=== PATIENT | female | born 1940 | race Caucasian/White ===

== ENCOUNTER 2018-01-09 17:10 | Inpatient (IN) | payer MEDICARE ==
[2018-01-09 17:40] LABS: #Basophils 0.1 thou/uL (0.0-0.2); #Eosinphils 0.2 thou/uL (0.0-0.7); #Lymphocytes 2.4 thou/uL (1.20-3.40); #Monocytes 1.4 thou/uL (0.11-0.59); #Neutrophils 7.7 thou/uL (1.40-6.50); %Basophils 0.6 % (0.0-1.0); %Eosinophils 1.5 % (0.0-10.0); %Lymphocytes 20.5 % (21.0-51.0); %Monocytes 11.6 % (0.0-10.0); %Neutrophils 65.7 % (42.0-75.0); Hemoglobin 12.6 g/dL (12.0-16.0); Mean Corpuscular HGB CONC 33.9 g/dL (32.0-36.0); Mean Corpuscular Hemoglobin 31.3 pg (27.0-31.0); Mean Corpuscular Volume 92.3 fL (78.0-98.0); Mean Platelet Volume 7.3 fL (7.4-10.4); Platelet Count 285 thou/uL (130-400); RBC Distribution Width 11.9 % (11.5-14.5); Red Blood Cell (RBC) Count 4.01 mill/uL (4.20-5.40); White Blood Cell (WBC) Count 11.7 thou/uL (4.8-10.8)
[2018-01-09 18:09] LABS: CKMB 0.7 ng/mL (0-6.6); Troponin I Less than 0.010 ng/mL (< 0.028)
--- NOTE | 2018-01-09 19:04 | RAD ---
CHEST ONE VIEW: History: Palpitations. Comparison: 06-16-17 FINDINGS: Cardiac silhouette is magnified by projection. Pulmonary vasculature unremarkable. Mediastinum is mid line. Lungs are hyperinflated. No lobar consolidation or evidence of pneumothorax. traffic monitor specialist le ads overlie the chest. IMPRESSION: COPD. POS: GABRIEL
[2018-01-09 20:27] VITALS: BMI 23.9
[2018-01-09] MEDS ORDERED: Ondansetron HCl/PF 4 MG/2 ML Vial IVP PRN (20:35)
[2018-01-09] MEDS ORDERED: Ondansetron ODT 4 MG TAB SL PRN (20:35)
[2018-01-09] MEDS ORDERED: Acetaminophen 325 MG TAB PO PRN (20:35)
[2018-01-09] MEDS ORDERED: Albuterol Sulfate 1.25 MG/3 ML NEB NEB PRN (20:42)
[2018-01-09 21:13] LABS: Troponin I Less than 0.010 ng/mL (< 0.028)
[2018-01-09] MEDS: Mag-Al 1200 mg/1200 mg/30 ML UDCUP PO PRN (23:43)
[2018-01-09 23:54] LABS: Troponin I Less than 0.010 ng/mL (< 0.028)
--- NOTE | 2018-01-10 05:40 | HP ---
PRIMARY CARE PHYSICIAN: Jane Bellamy M.D. CODE STATUS: FULL CODE. TIME OF EVALUATION: 7:50 p.m. CHIEF COMPLAINT: Syncope. HISTORY OF PRESENT ILLNESS: This is a 77-year-old female patient with past medical history of vanita bhagat, patient came to hospital after having an episode of syncope, she reported she was sitting at h ome, she was lightheaded and had an episode of syncope where she blacked out on the sofa, she did not fall on the floor, there were no clear triggers, no alleviating factors, the only event that the pat ient can recall this, but she has been having on and off chest pain for the past month. She reported that she was supposed to see a watch crystal molder in the next coming days. The symptoms were severe, sudd en onset, no clear triggers, no alleviating factors. REVIEW OF SYSTEMS: Constitutional: No fever, chills, or generalized weakness. Respiratory: No cou gh, sputum production or shortness of breath. Cardiovascular: Chest pain, palpitations, shortness o f breath. Gastrointestinal: No nausea, no vomiting, diarrhea or abdominal pain. AIRCRAFT ENGINE MECHANIC OVERHAUL: No dizziness , headache or feeling lightheaded. Genitourinary: No burning on urination. Extremities: No leg sw elling. All other systems were reviewed and negative except for the findings mentioned above. PAST MEDICAL HISTORY: The patient has a history of cardiac arrhythmias. PAST SURGICAL HISTORY: Knee surgery, cholecystectomy, hysterectomy. PSYCHIATRIC HISTORY: No previous psychiatric history. SOCIAL HISTORY: Former tobacco user, smokes cigarettes. The patient quit smoking less than 10 years ago. Lives at home alone. ALLERGIES: AZITHROMYCIN, . REPORTED MEDICATIONS: Triamterene/hydrochlorothiazide, losartan, Cardizem LA, pantoprazole, aspirin. PHYSICAL EXAMINATION: VITAL SIGNS: On presentation, blood pressure 102/66, with a heart rate of 106, respiratory rate was 14, temperature 98.6, oxygen saturation 100% on room air. GENERAL APPEARANCE: The patient is alert, oriented, not in any acute distress. HEENT: Eyes: Normal conjunctivae. Moist oral mucosa. Anicteric. NECK: No JVD. RESPIRATORY: Bilateral air entry. No rales, no wheezing. Symmetric expansion. CARDIOVASCULAR: Normal rate, regular rhythm. No murmurs, no gallop. No edema. ABDOMEN: Soft, normal bowel sounds. MUSCULOSKELETAL: Baseline range of motion and strength. No tenderness. SKIN: Warm and intact. No pallor, no rash, no redness. Peripheral pulses are present. Capillary r efill seems to be intact. NEUROLOGIC: Baseline sensory. No evidence of any new focal weakness. Baseline speech. Cranial ner ves seem to be intact. PSYCHIATRIC: The patient is in good mood. No anxiety, oriented, optimal judgment. IMAGING: EKG was reviewed. The patient has sinus tachycardia at the rate of 103 with left axis luther ation. AK 154, QRS 78, QT corrected 421. Chest x-ray was reviewed. The patient has COPD. LABORATORY DATA: Labs were reviewed. The patient has white count 11.7, hemoglobin 12.6, MCV 92, escobar telet count 285. Troponin was negative x2. Chemistry is pending. ASSESSMENT AND PLAN: The patient will be placed in the hospital with following medical problems. 1. Syncope, unclear etiology, the patient has a history of arrhythmia, we will do an echo, we will m onitor on tele, we will trend troponins. We will do carotid Doppler. 2. Deep venous thrombosis prophylaxis.
[2018-01-10 06:10] LABS: #Eosinphils 0.2 thou/uL (0.0-0.7); #Lymphocytes 1.9 thou/uL (1.20-3.40); #Monocytes 1.1 thou/uL (0.11-0.59); #Neutrophils 7.1 thou/uL (1.40-6.50); %Basophils 0.2 % (0.0-1.0); %Eosinophils 2.3 % (0.0-10.0); %Lymphocytes 17.9 % (21.0-51.0); %Monocytes 10.9 % (0.0-10.0); %Neutrophils 68.7 % (42.0-75.0); Hemoglobin 12.2 g/dL (12.0-16.0); Mean Corpuscular HGB CONC 33.3 g/dL (32.0-36.0); Mean Corpuscular Volume 93.1 fL (78.0-98.0); Mean Platelet Volume 7.6 fL (7.4-10.4); Platelet Count 272 thou/uL (130-400); Red Blood Cell (RBC) Count 3.94 mill/uL (4.20-5.40); White Blood Cell (WBC) Count 10.4 thou/uL (4.8-10.8)
[2018-01-10 07:11] LABS: Anion Gap 13 mmol/L (10-20); BUN (Urea Nitrogen) 19 mg/dL (9.8-20.1); Calc. Creatinine Clearance 46 mL/min (70-130); Calcium 9.6 mg/dL (7.8-10.44); Carbon Dioxide 28 mmol/L (23-31); Chloride 98 mmol/L (98-107); Estimated GFR-MDRD 58; Glucose 112 mg/dL (83-110); Potassium 4.1 mmol/L (3.5-5.1); Sodium 135 mmol/L (136-145)
--- NOTE | 2018-01-10 09:27 | ULT ---
BILATERAL CAROTID DUPLEX ULTRASOUND: HISTORY: Syncope. TECHNIQUE: Porter scale ultrasound with color flow and spectral Doppler imaging of the deep venous systems of the lower extremities performed bilaterally. FINDINGS: There is plaque formation on either side. The peak systolic velocity in the right ICA measures 71 cm/s with an end-diastolic velocity of 27 cm/ s and a systolic ratio of 0.77. The peak systolic velocity in the left ICA measures 82 cm/s with an end-diastolic velocity of 28 cm/s and a systolic ratio of 0.79. Flow in both vertebral arteries remains antegrade. IMPRESSION: No evidence of hemodynamically significant stenosis. POS: OFF
[2018-01-10] MEDS: Aspirin 81 mg Enteric Coated Tablet PO SCH (10:47)
[2018-01-10] MEDS: Enoxaparin Sodium 40 MG/0.4 ML SYRINGE SC SCH (10:49)
--- NOTE | 2018-01-10 11:07 | PDOC.PN ---
- Subjective Encounter Start Date: 01/10/18 Encounter Start Time: 11:05 Subjective: post syncope, feels ok today. Hx of SVT on cardizem, vague hx of weak spell - Objective Resuscitation Status: Resuscitation Status FULL:Full Resuscitation MAR Reviewed: Yes Vital Signs & Weight: Vital Signs (12 hours) Temp Pulse Resp BP BP Pulse Ox 01/10/18 08:49 99.4 F 90 17 135/67 94 L 01/10/18 05:08 98.6 F 76 16 95/55 L 93 L 01/09/18 23:43 71 18 125/68 94 L Weight Weight 131 lb I&O: 01/09/18 01/10/18 01/11/18 06:59 06:59 06:59 Intake Total 360 Output Total 300 Balance 60 Result Diagrams: 01/10/18 05:51 01/10/18 05:50 Phys Exam - Physical Examination Neck: no JVD Respiratory: clear to auscultation bilateral Cardiovascular: RRR, no significant murmur Gastrointestinal: soft, non-tender, positive bowel sounds Musculoskeletal: no edema Dx/Plan (1) Syncope and collapse Code(s): R55 - SYNCOPE AND COLLAPSE Status: Acute (2) SVT (supraventricular tachycardia) Code(s): I47.1 - SUPRAVENTRICULAR TACHYCARDIA Status: Resolved (3) CAD (coronary artery disease) Code(s): I25.10 - ATHSCL HEART DISEASE OF [place] CORONARY ARTERY W/O ANG PCTRS Status: Chronic Qualifiers: Coronary Disease-Associated Artery/Lesion type: [place] artery [place] vs. transplanted heart: [place] heart Associated angina: without angina Qualified Code(s): I25.10 - Atherosclerotic heart disease of [place] coronary artery without angina pectoris - Plan Hx suspicious for cardiac related syncope with rhythm disorder -: cont tele, cardiology consult, -: hold cardizem * .
[2018-01-10] MEDS: Mag-Al 1200 mg/1200 mg/30 ML UDCUP PO PRN (15:21)
--- NOTE | 2018-01-11 05:02 | CON ---
DATE OF CONSULTATION: 01/10/2018 HISTORY: Mary Ellen Maravilla is a 77-year-old white female who states in 1986, she began to have episodes of rapid heartbeat. She would have 3 to 4 episodes per week that would last 1-2 minutes. At that time, she would also have chest pressure and left jaw pain associated with this. She underwent cardiac catheterization approximately 2007 or 2008 in [place], [place] and was told that she had 15% to 20% narrowing in an artery. In the summer last year, she was having one of these episodes and her daughter took her quickly to the [facility] in [place]. She apparently had rapid heartbeat and it sounds as if she underwent electrical cardioversion for that. She was then placed on Cardizem 240 CD q.a.m. She states that since that time, she has not been having any problems whatsoever with the rhythm or other chest discomfort. Then, over the last month, she started to have episodes again of chest pressure, left jaw pain, and feeling of her heart beating very rapidly. She has an appointment for evaluation with Dr. Murray tomorrow. Yesterday, she was sitting on her couch and began to feel very lightheaded, everything went black and then she fell over and then found herself with her head on the arm of the couch. She thinks she may have been out for 5 or 6 seconds. This was unwitnessed. She then called paramedics. She was brought to the ER. Since being here, she has had documented episode of supraventricular tachycardia 150 per minute. Now with this, she did have some of the chest discomfort and the left jaw pain. PAST MEDICAL HISTORY: Cardiac arrhythmias, mild coronary artery disease according to the patient. OPERATIONS: Knee surgery, cholecystectomy, hysterectomy. MEDICATIONS: Albuterol nebs q.8 hours p.r.n., Ecotrin 1 daily, Cardizem LA 240 daily, losartan 50 daily, Protonix 40 daily, triamterene/hydrochlorothiazide 37.5/25 daily. ALLERGIES: PHENYLEPHRINE, AZITHROMYCIN, and LORATADINE. SOCIAL HISTORY: She continues to live alone. She smoked in the past, stopped about 10 years ago. She does not drink. PHYSICAL EXAMINATION: VITAL SIGNS: 139/74, pulse of 107. HEENT: PERRL. NECK: Supple. CHEST: Clear. CARDIAC: S1 and S2 are normal without any S3, S4, or murmurs. Carotid upstrokes normal without bruits. ABDOMEN: Normal bowel sounds without tenderness or organomegaly. EXTREMITIES: Revealed no clubbing, cyanosis, or edema. NEUROLOGIC: Grossly intact. SKIN: Warm and dry. LABORATORY DATA: EKG revealed sinus tachycardia with rate of 103 per minute, possible old anterior infarction. CBC is unremarkable. Sodium 135, potassium 4.1, chloride 98, carbon dioxide 28, BUN 19, creatinine 0.94. Troponin I is normal x3. TSH is normal in September. IMPRESSION: 1. Episode of syncope, which probably due to some type of lizbeth arrhythmia. 2. Supraventricular tachycardia and wide complex tachycardia seen on the monitor, which probably explains her tachycardia over the last 30 years. 3. Chest discomfort at times associated with her tachycardia. 4. Minimal coronary artery disease on catheterization 8-9 years ago in [place]. 5. Hypertension. PLAN: Fasting lipid profile will be obtained with patient having history of coronary artery disease and not being on a statin. She will undergo Lexiscan Cardiolite testing to further evaluate her chest pressure and left jaw pain. Also, Electrophysiology will be consulted for possible ablation of her SVT and electrophysiology study to measure sinus node recovery times, etc. JESSICA
[2018-01-11 05:57] LABS: Cardiac Risk 3.3 (Less than 4.5)
[2018-01-11] MEDS ORDERED: Regadenoson 0.4 MG/5 ML SYRINGE ONE (10:58)
[2018-01-11] MEDS: Enoxaparin Sodium 40 MG/0.4 ML SYRINGE SC SCH (11:05)
[2018-01-11] MEDS: Aspirin 81 mg Enteric Coated Tablet PO SCH (11:05)
[2018-01-11] MEDS: Losartan 25 MG TAB PO SCH (11:05)
[2018-01-11] MEDS: Triamterene/Hydrochlorothiazide 37.5 mg/25 mg Tablet PO SCH (11:05)
--- NOTE | 2018-01-11 13:17 | NM ---
CARDIAC SPECT: HISTORY: A 77-year-old female with chest pain, coronary artery disease, supraventricular tachycardia, hyperten golden. TECHNIQUE: A myocardial perfusion scan was performed using the single-isotope 1-day protocol with Technetium 99m sestamibi. Nine mCi were injected intravenously for the rest exam followed by 27 mCi for the stress study. Pharmacologic stress with LexiScan is monitored and interpreted by Clementine Fay. FINDINGS: Homogeneous tracer distribution is seen in the myocardial segments on stress and rest images without fixed or reversible defects. VISUAL ESTIMATION OF LVEF: About 60%. WALL MOTION EXAM: Normal. IMPRESSION: Normal myocardial perfusion scan. POS: GABRIEL
--- NOTE | 2018-01-11 15:31 | PDOC.PN ---
- Subjective Encounter Start Date: 01/11/18 Encounter Start Time: 15:29 Subjective: no problems - Objective Resuscitation Status: Resuscitation Status FULL:Full Resuscitation MAR Reviewed: Yes Vital Signs & Weight: Vital Signs (12 hours) Temp Pulse Resp BP Pulse Ox 01/11/18 11:48 97.5 F L 104 H 19 124/59 L 94 L 01/11/18 11:05 98.5 F 99 16 01/11/18 03:30 98.5 F 99 16 111/59 L 96 Weight Weight 127 lb 4.8 oz I&O: 01/10/18 01/11/18 01/12/18 06:59 06:59 06:59 Intake Total 360 780 Output Total 300 Balance 60 780 Result Diagrams: 01/10/18 05:51 01/10/18 05:50 Phys Exam - Physical Examination Neck: no JVD Respiratory: clear to auscultation bilateral Cardiovascular: RRR, no significant murmur Gastrointestinal: soft, positive bowel sounds Musculoskeletal: no edema Dx/Plan (1) Syncope and collapse Code(s): R55 - SYNCOPE AND COLLAPSE Status: Acute (2) SVT (supraventricular tachycardia) Code(s): I47.1 - SUPRAVENTRICULAR TACHYCARDIA Status: Resolved (3) CAD (coronary artery disease) Code(s): I25.10 - ATHSCL HEART DISEASE OF [place] CORONARY ARTERY W/O ANG PCTRS Status: Chronic Qualifiers: Coronary Disease-Associated Artery/Lesion type: [place] artery [place] vs. transplanted heart: [place] heart Associated angina: without angina Qualified Code(s): I25.10 - Atherosclerotic heart disease of [place] coronary artery without angina pectoris - Plan neg stress test , SVT ablation tomorrow * .
[2018-01-11] MEDS: Atorvastatin Calcium 40 MG TAB PO SCH (20:27)
--- NOTE | 2018-01-12 00:10 | CON ---
DATE OF CONSULTATION: 01/11/2018 ELECTROPHYSIOLOGY CONSULTATION REFERRING PHYSICIAN: Ivan Lomeli MD REASON FOR CONSULTATION: Syncope and collapse, SVT. HISTORY OF PRESENT ILLNESS: Ms. Maravilla is a pleasant 77-year-old woman with a history of palpitatio ns that initially began as far back as 1986. She began to have episodes 30 seconds to approximately 2 minutes in duration preceded by tooth and gum pain. She would have episodes of palpitations and di zziness that spontaneously ended. She has had a left heart catheterization in the past, which reveal ed minimal coronary artery disease 15%-20% and reports no further action has been taken about that. In 2017, she began to experience constant fatigue and increasing frequency of elevated heart rate epi sodes that were also becoming progressively longer. Approximately a year and a half ago, she was dri parag with her daughter, began to experience an episode, and went to the emergency room. She was foun d to be in a rapid rhythm and was given adenosine, which successfully chemically converted her back t o normal sinus rhythm. She was started on p.o. diltiazem, which has kept her largely asymptomatic si nce that time. Approximately 5 weeks ago, she began to experience recurrent episodes of heart racing , palpitations, and began to have associated symptoms of dizziness, lightheadedness, and eventually p assing out. She reports that prior to coming to the emergency room, she was on the sofa resting, whe n she felt weightless and that the room was closing in and around her and she passed out. She denies any heart racing or palpitations before this. There was no loss of bowel or bladder control afterwa rds. No confusion or disorientation afterwards. A family member who is an EMT came to evaluate her afterwards and reports a normal heart rate, but EMS was called and brought her in for further evaluat ion. She has undergone a cardiac stress test that was normal and her ejection fraction by echo this hospital stay is documented at 60%-65%. She has never had passing out episodes prior to this one, th ough has had many episodes where she felt close to passing out, most markedly in the past 5 weeks. S he has not noticed any provoking factors or relieving factors with her episodes. Currently, she denies any heart racing, palpitations, chest pain, pressure, syncope, near syncope, st roke, or stroke-like symptoms other than that mentioned already. She does report that she had some d izziness and lightheadedness yesterday and informed the nurse. Telemetry revealed a nine-second epis ode of wide-complex tachycardia with flipped access. REVIEW OF SYSTEMS: Twelve-point review of systems was conducted and is negative except that listed a lindsay in the HPI. PAST MEDICAL HISTORY: 1. Palpitations x30 years. 2. Mild coronary artery disease, nonobstructive by left heart catheterization in 2008. 3. Gallbladder removal. SOCIAL HISTORY: Former tobacco user. Smoked cigarettes, but quit approximately 10 years ago. Lives at home alone. Negative for illegal drug use or alcohol consumption. ALLERGIES: Include AZITHROMYCIN. HOME MEDICATIONS: Triamterene/hydrochlorothiazide 37.5/25 mg capsule daily, Protonix 40 mg daily, Co zaar 50 mg daily, Cardizem sustained release 240 mg daily, aspirin 81 mg daily, and albuterol 1.25 mg q.8. hours as needed. PHYSICAL EXAMINATION: VITAL SIGNS: Temperature 97.5 degrees Fahrenheit, pulse 105, respirations 19, oxygen is 94% on room air, blood pressure 124/59. GENERAL: This is a well-appearing, well-groomed female in no apparent distress. She is alert and or iented. Speech is clear. Affect is appropriate. HEENT: She is normocephalic, atraumatic. Her sclerae are anicteric. HEART: Heart rate is regularly regular with a crisp S1, S2. Her PMI is nondisplaced. LUNGS: Clear to auscultation bilaterally without wheezes, crackles, or rhonchi. Respirations are ev en and unlabored with good bilateral excursion heard. ABDOMEN: Benign, nontender with no palpable masses and there are positive bowel tones noted througho ut. NEUROLOGIC: Grossly intact and nonfocal, and her gait was not assessed. DATABASE: EKG and telemetry were all personally reviewed and showed largely sinus rhythm, other than occasional episodes of a slightly wide-complex tachycardia with axis deviation. Hematology unremarkable. Chemistry was reviewed and is unremarkable. Creatinine is 0.94, potassium 4.1. Nuclear stress test on 01/11/2018 was negative. Echocardiogram on 01/10/2018, ejection fraction 60%- 65%, mild mitral regurgitation, and [id number] tricuspid regurgitation. IMPRESSION: 1. Syncope and collapse. 2. Nonsustained wide-complex tachycardia, possibly ventricular tachycardia versus supraventricular t achycardia with aberrancy. 3. Preserved left ventricular systolic function 60%-65% by echo this hospitalization. PLAN: We will keep the patient n.p.o. after midnight tonight for EP study with possible ablation. D epending on the findings of the EP study, we also discussed potential need for a pacemaker versus ICD . Risks of EP study were disclosed including bleeding at the groin site, hematoma, cardiac arrhythmi as, or perforation of the heart. Risks associated with device implant include pain, swelling, bruisi ng, infection, pneumothorax, hemothorax. The patient voices understanding and is eager to move forwa rd with EP study and whatever is needed to be done. She agrees with all the risks. Family was at be dside also and voices understanding with plan of care. All questions have been answered. Thank you for allowing us to participate in the care of this patient.
--- NOTE | 2018-01-12 08:26 | PDOC.PN ---
- Subjective Encounter Start Date: 01/12/18 Encounter Start Time: 08:26 Subjective: some sob, responded to duoneb - Objective Resuscitation Status: Resuscitation Status FULL:Full Resuscitation MAR Reviewed: Yes Vital Signs & Weight: Vital Signs (12 hours) Temp Pulse Resp BP Pulse Ox 01/12/18 07:31 75 16 95 01/12/18 04:29 98.1 F 97 20 122/62 92 L 01/11/18 20:27 98.2 F 94 20 Weight Weight 132 lb 11.2 oz I&O: 01/11/18 01/12/18 01/13/18 06:59 06:59 06:59 Intake Total 780 500 Balance 780 500 Result Diagrams: 01/10/18 05:51 01/10/18 05:50 Phys Exam - Physical Examination Neck: no JVD Respiratory: clear to auscultation bilateral Cardiovascular: RRR, no significant murmur Gastrointestinal: soft, positive bowel sounds Musculoskeletal: no edema, pulses present Dx/Plan (1) Syncope and collapse Code(s): R55 - SYNCOPE AND COLLAPSE Status: Acute (2) SVT (supraventricular tachycardia) Code(s): I47.1 - SUPRAVENTRICULAR TACHYCARDIA Status: Resolved (3) CAD (coronary artery disease) Code(s): I25.10 - ATHSCL HEART DISEASE OF [place] CORONARY ARTERY W/O ANG PCTRS Status: Chronic Qualifiers: Coronary Disease-Associated Artery/Lesion type: [place] artery [place] vs. transplanted heart: [place] heart Associated angina: without angina Qualified Code(s): I25.10 - Atherosclerotic heart disease of [place] coronary artery without angina pectoris (4) COPD (chronic obstructive pulmonary disease) Status: Acute (5) Wide QRS ventricular tachycardia Code(s): I47.2 - VENTRICULAR TACHYCARDIA Status: Acute - Plan duoneb added -: EP studies today, FU * .
[2018-01-12] MEDS ORDERED: PROPOFOL 200 MG/20 ML VIAL ONE (10:29)
[2018-01-12] MEDS: Triamterene/Hydrochlorothiazide 37.5 mg/25 mg Tablet PO SCH (10:33)
[2018-01-12] MEDS: Losartan 25 MG TAB PO SCH (10:33)
[2018-01-12] MEDS: Aspirin 81 mg Enteric Coated Tablet PO SCH (10:34)
[2018-01-12] MEDS: Enoxaparin Sodium 40 MG/0.4 ML SYRINGE SC SCH (10:34)
--- NOTE | 2018-01-12 16:03 | EKG ---
Test Reason : Blood Pressure : / mmHG Vent. Rate : 103 BPM Atrial Rate : 103 BPM P-R Int : 154 ms QRS Dur : 078 ms QT Int : 322 ms P-R-T Axes : 071 -34 057 degrees QTc Int : 421 ms Sinus tachycardia Left axis deviation Anterior infarct , age undetermined Abnormal ECG Confirmed by FATEMEH HOYOS, SONYA ([id number]), publications editor HEIDI FRYE ([id number]) on 01/12/2018 4:02:45 PM Referred By: Confirmed By:SONYA WELDON MD
[2018-01-12] MEDS ORDERED: Midazolam HCl 2 mg/2 ml Vial ONE (16:58)
[2018-01-12] MEDS ORDERED: Fentanyl 100 MCG/2 ML VIAL ONE (16:59)
[2018-01-12] MEDS ORDERED: Propofol 500 MG/50 ML VIAL ONE (17:23)
[2018-01-12] MEDS ORDERED: PHENYLEPHRINE-NS 100 MCG/ML 10 ML SYRINGE ONE (17:43)
[2018-01-12] MEDS ORDERED: Isoproterenol 0.2 MG/1 ML AMP ONE (18:36)
[2018-01-12] MEDS ORDERED: PROPOFOL 20 ML ONE (18:47)
[2018-01-12] MEDS ORDERED: Ondansetron HCl/PF 4 MG/2 ML Vial IVP PRN (19:11)
[2018-01-12] MEDS ORDERED: Promethazine HCl 25 MG/ML VIAL SLOW IVP PRN (19:11)
[2018-01-12] MEDS ORDERED: Promethazine HCl 25 MG/ML VIAL IM PRN (19:11)
[2018-01-12] MEDS: Atorvastatin Calcium 40 MG TAB PO SCH (21:21)
--- NOTE | 2018-01-13 09:21 | OP ---
DATE OF SERVICE: 01/12/2018 ELECTROPHYSIOLOGY STUDY AND RADIOFREQUENCY ABLATION REPORT REFERRING PHYSICIAN: Jimy Villalpando M.D. and Ivan Lomeli M.D. Reason for procedure: Ms. Maravilla is a 77-year-old female with history of syncopal spell and on telemetry, she has episodes of tachyarrhythmias, possible SVTs documented, here for EP study and ablation procedure. PROCEDURE: The patient received propofol Anesthesia specialist. After adequate level of sedation achieved, the left and right femoral vein was accessed with a multipurpose needle under ultrasound guidance. The guidewire though did not advance into the IVC. 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 Collaterals were seen carrying the blood centrally. Access from this approach was abandoned. Under ultrasound guidance and after prep and drape of the right IJ area, the right IVC was accessed with a multipurpose needle under fluoroscopic guidance, the right internal jugular veins were cannulated x2. Two 8-[place] short sheaths were introduced. Through this, a decapolar catheter was advanced to the right ventricular His bundle, right atrium and CS position. Pacing/mapping and recording was performed in each location. The following findings were noted, baseline cycle length sinus rhythm 637 milliseconds, WA 163, QRS 73, QT of 335 wide complex tachycardia. The AH was 100 milliseconds, HV 50 milliseconds. The sinus node recovery time is 776 milliseconds. Corrected sinus node recovery time was 150 milliseconds. AV Wenckebach cycle length was 360 milliseconds, retrograde Wenckebach cycle length 320 milliseconds. AV whitney ERP of 600/260 milliseconds with dual AV whitney physiology was demonstrated. Retrograde VA conduction was concentric. With burst atrial pacing, AV whitney reentry tachycardia was induced, which was pace terminated with overdrive ventricular pacing. The short<80ms VA timing and the initiation by WA prolongation during atrial pacing. This suggestive of AV node reentry tachycardia and at this point, we advanced a 4 mm ablation catheter to the right atrium, right ventricle, His bundle, and CS area. Pacing mapping and recording was performed in each location. With 40 baker 50 second- degree burn, we were delivered total of 7 ablation spots in the slow pathway with total duration of 4 minutes and 30 seconds. Junctional beats were observed during the ablation suggestive of successful slow pathway modification. No AV block was seen post-ablation, the AV Wenckebach cycle length was 360 milliseconds. With burst atrial pacing and atrial extrastimuli testing, no further slow pathway was evident. Isuprel was administered at this point and we were not able to re-induce the atrial tachycardia, either. BB Aberration noted with burst atrial pacing on Isuprel which could explain the wider complexes noted during the SVT on her monitor. CONCLUSION: 1. Typical AV whitney reentry tachycardia inducible. 2. Successful slow pathway modification. 3. 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 PLAN: Routine postoperative care. Evaluate abnormal structures due to IVC occlusion with a CT scan. MTDD
[2018-01-13] MEDS: Aspirin 81 mg Enteric Coated Tablet PO SCH (11:49)
[2018-01-13] MEDS: Losartan 25 MG TAB PO SCH (11:49)
[2018-01-13] MEDS: Triamterene/Hydrochlorothiazide 37.5 mg/25 mg Tablet PO SCH (11:49)
[2018-01-13] MEDS: Enoxaparin Sodium 40 MG/0.4 ML SYRINGE SC SCH (11:50)
--- NOTE | 2018-01-13 12:28 | CT ---
CT ABDOMEN AND PELVIS WITH IV CONTRAST: Date: 01-13-18 History: Unable to gain access through either common femoral vein for a heart ablation. 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 FINDINGS: Contrast injection was performed through a peripheral intravenous catheter within the right ankle. Th ere is dense contrast seen within the visualized right femoral veins with what is thought to be varyi ng anatomy with duplicated IVC. However, the right sided IVC is very small in caliber although there is a small amount of contrast within the right sided IVC. However, there are multiple cross pelvic co llateral vessels which extend to the left sided IVC. However, there is prominent tortuosity of the le ft iliac veins. The left common femoral vein was not opacified on this exam as the injection was perf ormed on the right. The IVC at the level of the renal veins as well as the hepatic IVC are normal and patent. Given the multiple cross pelvic collaterals and very small size of the right sided IVC may a ttribute to patient's right lower extremity swelling. 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 There is minimal linear density seen at each lung base which may be related to mild scarring. There are calcified granulomata seen within the spleen. Small subcentimeter low density foci are also seen within the spleen. These low density areas could potentially be related to phase of contrast en hancement. The liver, pancreas, bilateral adrenal glands, kidneys, and urinary bladder demonstrate a normal CT a ppearance. There is evidence of hysterectomy as well as what appears to be evidence of prior cholecystectomy. Sm all hiatal hernia is present. Vascular calcifications are seen in the abdominal aorta and involving the iliac arteries. A few scattered colonic diverticula are noted. IMPRESSION: 1. 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 There are multiple cross pelvic collateral veins with dil ated tortuous vessels involving the left iliac veins. There is question of filling defect within the right common iliac vein, but this may be related to mixing artifact with preferential flow via the co llateral veins in the pelvis to the draining veins on the left. The suprahepatic, hepatic and suprare nal IVC are patent. 2. Subcentimeter low density foci within the spleen; this may be related to phase of enhancement as o pposed to actual small hypodense splenic lesions. 3. Small hiatal hernia. 4. Hysterectomy and probable cholecystectomy. 5. Atherosclerotic calcifications. POS: GABRIEL
[2018-01-13] MEDS: Mag-Al 1200 mg/1200 mg/30 ML UDCUP PO PRN (15:41)
[2018-01-13 15:53] VITALS: BP 115/97; TEMP 98
--- NOTE | 2018-01-13 17:19 | PDOC.CTH ---
<Marlin Ramseyna - Last Filed: 01/13/18 17:15> Cardiology Progress Note - Subjective EP progress note: Patient seen and evaluated. No new cardiac concerns or complaints today. Denies heart racing, palpitations, chest pain/pressure, dizziness, or passing out. No stroke like symptoms. - Objective Vital Signs Temp Pulse Resp BP Pulse Ox 01/13/18 15:52 98.0 F 97 18 115/97 H 90 L 01/13/18 11:35 98.3 F 90 20 116/65 92 L 01/13/18 08:00 97.7 F 89 12 128/56 L 89 L Weight 132 lb 11.2 oz 01/12/18 01/13/18 01/14/18 06:59 06:59 06:59 Intake Total 500 Balance 500 - Physical Examination General/Neuro: alert & oriented x3, NAD Neck: carotid US brisk, no JVD present Lungs: CTA, unlabored respirations Heart: PMI normal, RRR Abdomen: no HSM, NT/ND, soft - Telemetry Telemetry Rhythm: NSR - Labs Result Diagrams: 01/10/18 05:51 01/10/18 05:50 Troponin/CKMB CK-MB (CK-2) 0.7 ng/mL (0-6.6) 01/09/18 17:32 Troponin I Less than 0.010 ng/mL (< 0.028) 01/09/18 23:23 - Assessment/Plan 1. Syncope and collapse: 2. 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 Successful slow pathway modification. No additional tachy arrhythmias inducible. Groin site stable without hematoma. OK to DC by EP. 6 week follow up will be arranged through [facility] <Benjamin Matos - Last Filed: 01/13/18 18:15> Cardiology Progress Note - Objective Vital Signs Temp Pulse Resp BP Pulse Ox 01/13/18 15:52 98.0 F 97 18 115/97 H 90 L 01/13/18 11:35 98.3 F 90 20 116/65 92 L 01/13/18 08:00 97.7 F 89 12 128/56 L 89 L Weight 132 lb 11.2 oz 01/12/18 01/13/18 01/14/18 06:59 06:59 06:59 Intake Total 500 Balance 500 - Labs Result Diagrams: 01/10/18 05:51 01/10/18 05:50 Troponin/CKMB CK-MB (CK-2) 0.7 ng/mL (0-6.6) 01/09/18 17:32 Troponin I Less than 0.010 ng/mL (< 0.028) 01/09/18 23:23 Attending Addendum - Attending Addendum Date/Time: 01/13/181813 I personally evaluated the patient and discussed the management with MS Ramsey I agree with the History, Examination, Assessment and Plan documented above with any addition or exceptions noted below. Please see dictated report.
--- NOTE | 2018-01-13 22:16 | DIS ---
DATE OF ADMISSION: 01/09/2018 DATE OF DISCHARGE: 01/13/2018 PRIMARY CARE PROVIDER: Jane Bellamy. DISCHARGE DISPOSITION: Discharged home. FINAL DIAGNOSES: Syncope and collapse, supraventricular tachycardia, wide QRS ventricular tachycardi a, chronic obstructive pulmonary disease, hypertension, coronary artery disease. DISCHARGE MEDICATIONS: Aspirin 81 mg a day, triamterene/HCTZ 37.5/25 one a day, losartan 50 mg a day , albuterol 1.25 mg nebs q.8 hours p.r.n., Protonix 40 mg a day. ALLERGIES: AZITHROMYCIN, LORATADINE, PHENYLEPHRINE from medicines. CODE STATUS: FULL. PENDING AT THE TIME OF DISCHARGE: Nothing. DIET: Heart healthy. HOSPITAL COURSE: The patient admitted to [facility] to [facility] elizabeth with syncope. Initial evaluation with carotid Doppler and CT of the head was unrevealing. Echocar diogram was done which showed an EF of 60% -65% with suggestion of diastolic dysfunction. Because [facility] patient had a history of SVT, she subsequently had a wide QRS tachycardia. Nuclear medicine stress test was done which revealed no evidence of ischemia. She was taken to the director of cardiac cath lab. Dr. Alexander To did an ablation. While doing the procedure, it was noted that it was difficult to advance an infe rior vena cava. 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 This has been discussed with the patient . CONSULTATIONS: Benjaimn Matos, Electrophysiology and Ivan Lomeli, Cardiology. The patient is being discharged on her usual medicines except for the Cardizem which has been used fo r years to prevent rapid rhythms with the SVT. This has been discontinued. She will see her PCP in follow up in 1 week. She will see Dr. Matos in follow up in 6 weeks.
--- NOTE | 2018-01-13 22:28 | PRG ---
DATE OF SERVICE: 01/13/2018 SUBJECTIVE: Ms. Maravilla seems to be doing well one day after her EP study and ablation procedure. OBJECTIVE DATA: VITAL SIGNS: Blood pressure is 128/56, heart rate 89, respiratory rate 12, temperature 97.7 degrees Fahrenheit. GENERAL: This is a 77-year-old woman in no apparent distress. NECK: Supple. Jugular veins are distended. Right IJ catheter access site is without hematoma. ABDOMEN: Benign. Bowel sounds positive. CARDIOVASCULAR: Heart sounds are regular to rate and rhythm. CHEST: Clear without crackles. DATABASE: Telemetry strips reveal sinus rhythm, no tachyarrhythmias. 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 Multiple close and tortuous venous vessels in the left iliac veins are seen. S uprahepatic and suprarenal IVCs patent. ASSESSMENT AND PLAN: 1. Ms. 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 She seems to be recovered well from that, no recurrence of arrh ythmia seen. 2. 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 There seem s to be reconstitution of the right IVC via collaterals at the renal vein level. 3. Plan: Routine followup in the office.
--- NOTE | 2018-01-14 15:12 | EKG ---
Test Reason : Blood Pressure : / mmHG Vent. Rate : 086 BPM Atrial Rate : 086 BPM P-R Int : 150 ms QRS Dur : 072 ms QT Int : 356 ms P-R-T Axes : 076 -14 040 degrees QTc Int : 426 ms Sinus rhythm with frequent Premature ventricular complexes Otherwise normal ECG When compared with ECG of 12-JAN-2018 19:22, (Unconfirmed) Premature ventricular complexes are now Present Abberant conduction is no longer Present Minimal criteria for Anterior infarct are no longer Present Nonspecific T wave abnormality no longer evident in Inferior leads Confirmed by JOE ISAAC MD ([id number]) on 01/14/2018 3:12:43 PM Referred By: [facility] Confirmed By:JOE ISAAC MD
--- NOTE | 2018-01-14 15:12 | EKG ---
Test Reason : STAT Blood Pressure : / mmHG Vent. Rate : 097 BPM Atrial Rate : 097 BPM P-R Int : 146 ms QRS Dur : 068 ms QT Int : 352 ms P-R-T Axes : 066 -19 031 degrees QTc Int : 447 ms Sinus rhythm with Premature atrial complexes with Abberant conduction Low voltage QRS Cannot rule out Anterior infarct (cited on or before 09-JAN-2018) Abnormal ECG When compared with ECG of 09-JAN-2018 17:21, Abberant conduction is now Present Nonspecific T wave abnormality, worse in Inferior leads Confirmed by JOE ISAAC MD ([id number]) on 01/14/2018 3:12:10 PM Referred By: ANILA Confirmed By:JOE ISAAC MD
== END 2018-01-13 17:24 | disposition home or self-care (01) | DRG 274 ==
LOC: ERS 17:10 → 2SW 20:23 → OBSVTOIN 01-11 15:01
PROVIDERS: ADMIT Hospitalist; ATTEND Hospitalist
PROC: 02583ZZ Destruction of Conduction Mechanism, Percutaneous Approach (ICD-10-PCS; principal; 2018-01-12)
PROC: 02K83ZZ Map Conduction Mechanism, Percutaneous Approach (ICD-10-PCS; 2018-01-12)
PROC: 4A0234Z Measurement of Cardiac Electrical Activity, Percutaneous Approach (ICD-10-PCS; 2018-01-12)
PROC: 4A023FZ Measurement of Cardiac Rhythm, Percutaneous Approach (ICD-10-PCS; 2018-01-12)
DX: I47.1 Supraventricular tachycardia (principal); Q26.8 Other congenital malformations of great veins; I47.2 Ventricular tachycardia; R55 Syncope and collapse; I25.10 Atherosclerotic heart disease of native coronary artery without angina pectoris; I10 Essential (primary) hypertension; J44.9 Chronic obstructive pulmonary disease, unspecified; Z87.891 Personal history of nicotine dependence; Z88.1 Allergy status to other antibiotic agents; Z88.8 Allergy status to other drugs, medicaments and biological substances; Z79.82 Long term (current) use of aspirin; Z79.899 Other long term (current) drug therapy
CPT/HCPCS: 36005; 36415; 71045; 74177; 75820; 76942; 78452; 80048; 80061; 82550; 82553; 84484; 85025; 93005; 93010; 93017; 93306; 93613; 93623; 93653; 93880; 94640; 94760; A9500; C1730; C1769; J1644; J1650; J2250; J2704; J2785; J3010; J7620

== ENCOUNTER 2019-08-25 14:41 | Inpatient (IN) | payer MEDICARE, OTHER ==
[2019-08-25 15:29] LABS: Hemoglobin 11.2 g/dL (12.0-16.0); Mean Corpuscular HGB CONC 32.4 g/dL (32.0-36.0); Mean Corpuscular Hemoglobin 31.5 pg (27.0-31.0); Mean Corpuscular Volume 97.4 fL (78.0-98.0); Mean Platelet Volume 9.8 fL (7.4-10.4); Platelet Count 202 thou/uL (130-400); RBC Distribution Width 11.6 % (11.5-14.5); Red Blood Cell (RBC) Count 3.55 mill/uL (4.20-5.40); White Blood Cell (WBC) Count 25.6 thou/uL (4.8-10.8)
--- NOTE | 2019-08-25 15:32 | RAD ---
Chest one view HISTORY: Chest pain. Dyspnea. COMPARISON: 01/09/2018. FINDINGS: Cardiac silhouette and pulmonary vasculature are unremarkable. Ill-defined parenchymal opac ities project over the left lower lobe. Somewhat masslike appearance. No lobar consolidation on the right. Mediastinum is midline with aortic calcification. No evidence of pneumothorax. Dystrophic calcificati on projecting over the left scapula is stable. surveillance system monitor leads overlie the chest. IMPRESSION : Masslike infiltrate left lower lobe. Clinical correlation regarding other signs and symptoms of left lower lobe pneumonitis is required. Please consider follow-up with PA and lateral views of the chest for evaluation/resolution. Atherosclerosis.
[2019-08-25 15:44] LABS: Band 30 % (5-11); Lymphocytes 3 % (21-51); MDiff Complete? YES; Metamyelocyte 2 % (0-0); Monocytes 7 % (0-10); Neutrophil 57 % (42-75); Platelet Morphology Comment Appears Adequate; RBC Morphology Normal; Reactive Lymphocytes 1 % (0-10)
[2019-08-25 15:49] LABS: ALT (SGPT) 9 U/L (8-55); AST (SGOT) 14 U/L (5-34); Albumin 3.9 g/dL (3.4-4.8); Alkaline Phosphatase 88 U/L (40-110); Anion Gap 13 mmol/L (10-20); BUN (Urea Nitrogen) 12 mg/dL (9.8-20.1); Bilirubin, Total 0.7 mg/dL (0.2-1.2); CK (CPK) 22 U/L (29-168); Calc. Creatinine Clearance 0 mL/min (70-130); Calcium 8.8 mg/dL (7.8-10.44); Carbon Dioxide 35 mmol/L (23-31); Chloride 95 mmol/L (98-107); Estimated GFR-MDRD 71; Globulin 2.7 g/dL (2.4-3.5); Glucose 122 mg/dL (83-110); Lipase 16 U/L (8-78); Potassium 3.6 mmol/L (3.5-5.1); Protein, Total 6.6 g/dL (6.0-8.3); Sodium 139 mmol/L (136-145)
[2019-08-25] MEDS ORDERED: Cefepime 2 GM VIAL ONE (16:31)
[2019-08-25] MEDS ORDERED: Zolpidem Tartrate 5 MG TAB PO PRN (18:27)
[2019-08-25] MEDS ORDERED: Ondansetron PF 4 MG/2 ML Vial IVP PRN (18:27)
[2019-08-25] MEDS ORDERED: Ondansetron ODT 4 MG TAB PO PRN (18:27)
[2019-08-25 19:13] LABS: Lactic Acid 1.9 mmol/L (0.5-2.2)
--- NOTE | 2019-08-25 19:23 | HP ---
PRIMARY CARE PROVIDER: Jane Bellamy MD HISTORY OF PRESENT ILLNESS: Referred to the Hospitalist Service by [facility]. Opening statement, the patient is a difficult historian. The patient states she had seizure-like activity that came back yesterday. She dates these seizure-like activities to receiving stents. They are basically a spontaneous motion of her arm or her shoulder. No loss of consciousness. No tonic-clonic activity. She has been put on Keppra for same. Her medical care has been obtained in [facility] and in [place]. The patient describes absolutely no fever, chills, cough, shortness of breath, etc. She was found to have a left lower lobe pneumonia. She is considered a COVID rule out. PAST MEDICAL HISTORY: Coronary artery disease, stents 18 months ago and again 2 months ago, chronic obstructive pulmonary disease, hypertension, seizure disorder per her description. CURRENT MEDICATIONS: 1. Aspirin 81 mg a day. 2. Plavix 75 mg a day. 3. Diltiazem 60 mg twice a day. 4. Ferrous sulfate 28 mg a day. 5. Lasix 20 mg a day. 6. Albuterol 90 mcg inhaled q.4 hours p.r.n. 7. Imdur 30 mg once a day. 8. Keppra 250 mg two times a day. 9. Protonix 20 mg a day. 10. Losartan 25 mg a day. ALLERGIES: TO LEVAQUIN, LORATADINE, MORPHINE, PHENYLEPHRINE, SUDAFED, CLARITIN, AZITHROMYCIN, CONTACT D. PAST SURGICAL HISTORY: Ablation for supraventricular tach at this hospital in 2018, cholecystectomy, arthroscopic knee surgery on the right, hysterectomy. FAMILY HISTORY: Mother of heart problems, had rheumatic fever as a child. Father in an accident. SOCIAL HISTORY: Single, daughter Malena Watt is surrogate decision maker. Full code status. She smoked 1 pack a day for decades, quit in 2009. Drinks no alcohol at the current time. REVIEW OF SYSTEMS: GENERAL: She states she has had hallucinations, which she knew they were hallucinations with her seizures. She has had no headaches, dizziness, fainting spells, or loss of consciousness. EYES: No double vision, blurred vision, or flashing lights. EAR, NOSE, AND THROAT: No ear pain or drainage. No nasal bleeding. No loss of smell sensation. No oral pain. No loss of taste sensation. CARDIAC: No chest pain, orthopnea, or paroxysmal nocturnal dyspnea. RESPIRATIONS: See present illness. GASTROINTESTINAL: She said she had possible food poisoning yesterday because she just felt sick this morning, had some nausea and vomiting. Still has some nausea. No vomiting of blood. No diarrhea, constipation, or melena. No abdominal pain. GENITOURINARY: No hematuria or dysuria. MUSCULOSKELETAL: No pain or swelling in her arms or legs. NEUROLOGICAL: The aforementioned jerking/seizure activity, which she described to me as a simple jerk of the arm. PSYCHIATRIC: No anxiety, depression, or psychiatric issues documented. SKIN: No bruising, bleeding, or rash. HEME/LYMPH: No tender or swollen lymph nodes in the axilla, inguinal, or cervical area. PHYSICAL EXAMINATION: GENERAL: As mentioned before, the patient is a poor historian; however, she is alert, oriented x3 and cooperative. VITAL SIGNS: Blood pressure 104/43, pulse 80, respirations 22, O2 saturation 92% on 1 L, it was initially 88% on room air. HEAD, EYES, EARS, NOSE, AND THROAT: Revealed pupils are equal, round, and reactive to light. Extraocular movements are intact. Sclerae are white. Tympanic membranes clear. Nose clear. Mouth sweat. NECK: No jugular venous distention, adenopathy or thyromegaly. CHEST: Some decreased breath sounds. Rales over the increased entire left posterior chest and to some extent the left anterior chest. Breath sounds good on the right. HEART: Regular rate and rhythm. First and second heart sounds are clear. There are no appreciated murmurs or gallops. ABDOMEN: Soft. Bowel sounds are normal. No hepatosplenomegaly. No mass. No rebound. No bruits. EXTREMITIES: Revealed no cyanosis, clubbing, or edema. PULSES: Carotid, radial, femoral, and dorsalis pedis pulses intact. SKIN: Warm and dry without bruises or rash. HEME/LYMPH: No tender or swollen lymph nodes in axilla, inguinal, or cervical area. NEUROLOGIC: Cranial nerves 2 through 12 are intact. Deep tendon reflexes symmetric. Moves all extremities. LABORATORY DATA: Chest x-ray, some hyperinflation, some flattening of the diaphragms, left lower lobe patchy infiltrate reviewed by me. EKG, regular sinus rhythm. Diffuse T-wave flattening reviewed by me. Comprehensive metabolic profile; sodium 139, potassium 3.6, chloride 95, CO2 of 35, creatinine 0.78, BUN 12, glucose 122. Lactic acid 2.5. CRP 3.97. White count 25.6 with bandemia, hemoglobin 11.2, platelet count 202,000. ADMITTING DIAGNOSES: 1. Acute respiratory failure with hypoxemia. 2. Left lower lobe pneumonia. 3. Coronavirus rule out. 4. Coronary artery disease, post percutaneous coronary intervention. 5. Lactic acidosis. 6. Hypertension. 7. Spontaneous jerking motions referred to by the patient as seizures. PLAN: Blood cultures have been obtained. Because of allergy, she will be given doxycycline 100 mg twice a day IV, Rocephin 1 g IV daily, O2 to keep sat 90% or better. Home medicines except Lasix will be given. IV fluids, normal saline at 125 mg/mL an hour will be given. Basic metabolic profile, CBC and lactic acid will be repeated in the morning. As mentioned before, DIEGO is pending. Job ID: [id number]
[2019-08-25] MEDS: Sodium Chloride 0.9% 1,000 ML IV SCH (20:42)
[2019-08-25] MEDS: cefTRIAXone\\ROCEPHIN 1 GM in Sodium Chloride 0.9% 100 ML IVPB SCH (20:42)
[2019-08-25] MEDS: levETIRAcetam 500 MG TAB PO SCH (20:44)
[2019-08-25] MEDS: Diltiazem HCl SR 60 mg Capsule PO SCH (20:46)
[2019-08-25] MEDS: Acetaminophen 325 MG TAB PO PRN (20:49)
[2019-08-25 22:19] VITALS: BMI 25.4
[2019-08-26] MEDS: Sodium Chloride 0.9% 1,000 ML IV SCH ×3 (05:12→19:28)
[2019-08-26 05:57] LABS: #Lymphocytes 1.7 thou/uL (1.20-3.40); #Monocytes 1.6 thou/uL (0.11-0.59); #Neutrophils 19.1 thou/uL (1.40-6.50); %Basophils 0.1 % (0.0-1.0); %Eosinophils 0.1 % (0.0-10.0); %Lymphocytes 7.5 % (21.0-51.0); %Monocytes 7.2 % (0.0-10.0); %Neutrophils 85.1 % (42.0-75.0); Mean Corpuscular HGB CONC 31.2 g/dL (32.0-36.0); Mean Corpuscular Hemoglobin 31.4 pg (27.0-31.0); Platelet Count 181 thou/uL (130-400); RBC Distribution Width 11.6 % (11.5-14.5); Red Blood Cell (RBC) Count 3.18 mill/uL (4.20-5.40); White Blood Cell (WBC) Count 22.5 thou/uL (4.8-10.8)
[2019-08-26 06:13] LABS: Anion Gap 12 mmol/L (10-20); BUN (Urea Nitrogen) 15 mg/dL (9.8-20.1); Calc. Creatinine Clearance 56 mL/min (70-130); Calcium 8.2 mg/dL (7.8-10.44); Carbon Dioxide 28 mmol/L (23-31); Chloride 101 mmol/L (98-107); Estimated GFR-MDRD 70; Glucose 104 mg/dL (83-110); Potassium 4.1 mmol/L (3.5-5.1); Sodium 137 mmol/L (136-145)
[2019-08-26] MEDS: levETIRAcetam 500 MG TAB PO SCH ×2 (08:37→20:57)
[2019-08-26] MEDS: Clopidogrel Bisulfate 75 MG TAB PO SCH (08:37)
[2019-08-26] MEDS: Aspirin 81 mg Enteric Coated Tablet PO SCH (08:37)
[2019-08-26] MEDS: Isosorbide Mononitrate (ER) 30 MG TAB PO SCH (08:38)
[2019-08-26] MEDS ORDERED: Enoxaparin Sodium 40 MG/0.4 ML SYRINGE SC SCH (09:00)
[2019-08-26] MEDS ORDERED: Lorazepam 2 MG/ML VIAL SLOW IVP PRN (13:05)
[2019-08-26] MEDS: Losartan 25 MG TAB PO SCH (13:09)
[2019-08-26] MEDS: Diltiazem HCl SR 60 mg Capsule PO SCH ×2 (13:38→21:41)
[2019-08-26] MEDS ORDERED: Sodium Chloride 0.9% 250 ML 250 ML IVPB PRN (14:06)
[2019-08-26] MEDS ORDERED: Sodium Chloride 0.9% 250 ML 250 ML IV SCH (14:15)
--- NOTE | 2019-08-26 14:48 | PDOC.HOSPP ---
- Subjective Encounter Date: 08/26/19 Encounter Time: 10:50 Subjective: more myoclonic jerks noted by RN, wbcs high, covid pending. - Objective Vital Signs & Weight: Vital Signs (12 hours) Temp Pulse Resp BP Pulse Ox 08/26/19 12:45 97.6 F 85 18 111/57 L 94 L 08/26/19 08:37 97.6 F 87 18 100/60 90 L 08/26/19 08:00 98 08/26/19 04:00 97.8 F 84 18 98/58 L 94 L Weight Admit Weight 138 lb 14.24 oz Weight 138 lb 14.24 oz I&O: 08/25/19 08/26/19 08/27/19 06:59 06:59 06:59 Intake Total 1375 Balance 1375 Result Diagrams: 08/26/19 05:29 08/26/19 05:29 Hospitalist ROS - Medication Medications: Active Medications Generic Name Dose Route Start Last Admin Trade Name Freq PRN Reason Stop Dose Admin Acetaminophen 650 mg 08/25/19 18:27 08/25/19 20:49 Tylenol PO 650 mg Q4H PRN Administration Headache/Fever/Mild Pain (1-3) Aspirin 81 mg 08/26/19 09:00 08/26/19 08:37 Ecotrin PO 81 mg DAILY DARWIN Administration Clopidogrel Bisulfate 75 mg 08/26/19 09:00 08/26/19 08:37 Plavix PO 75 mg DAILY DARWIN Administration Diltiazem HCl 60 mg 08/25/19 21:00 08/26/19 13:38 Cardizem Sr PO Not Given BID DARWIN Ceftriaxone Sodium 1 gm/ 100 mls @ 200 mls/hr 08/25/19 20:00 08/25/19 20:42 Sodium Chloride IVPB 100 mls Q24HR DARWIN Administration Doxycycline Hyclate 100 mg/ 100 mls @ 100 mls/hr 08/25/19 21:00 08/26/19 09: 12 Sodium Chloride IVPB 100 mls Q12HR DARWIN Administration Sodium Chloride 1,000 mls @ 125 mls/hr 08/25/19 18:27 08/26/19 05:12 Normal Saline 0.9% IV 1,000 mls .Q8H DARWIN Administration Isosorbide Mononitrate 30 mg 08/26/19 09:00 08/26/19 08:38 Imdur Er PO 30 mg DAILY DARWIN Administration Losartan Potassium 25 mg 08/26/19 09:00 08/26/19 13:09 Cozaar PO Not Given DAILY DARWIN Ondansetron HCl 4 mg 08/25/19 18:27 08/25/19 21:13 Zofran IVP 4 mg Q6H PRN Administration Nausea/Vomiting Pantoprazole Sodium 20 mg 08/26/19 09:00 08/26/19 08:37 Protonix PO 20 mg DAILY DARWIN Administration Sodium Chloride 10 ml 08/25/19 21:00 08/26/19 10:36 Flush - Normal Saline IVF 10 ml Q12HR DARWIN Administration - Exam General Appearance: NAD, awake alert Eye: PERRL ENT: normocephalic atraumatic Neck: supple Heart: RRR Respiratory: CTAB, normal chest expansion Gastrointestinal: soft, normal bowel sounds Neurological: no focal deficits Hosp A/P - Plan Acute hypoxic resp failure - on cTX, doxy - fw on the marielena and COVID Hx of SEizure - now has some myoclonic jerks - increased keppra dose -consulted bette - make sure lytes panels ok HTN CAD -on ASA, plavix, cardizem, imdur and losartain ARABELLA-ppi -will cullen henao full code.
[2019-08-26] MEDS ORDERED: Nitroglycerin 0.4 MG TAB (25 Tab Bottle) ONE (18:00)
[2019-08-26] MEDS ORDERED: Nitroglycerin 0.4 MG TAB 1 EACH SL PRN (18:16)
[2019-08-26 19:37] LABS: Troponin I 0.012 ng/mL (< 0.028)
[2019-08-26] MEDS: cefTRIAXone\\ROCEPHIN 1 GM in Sodium Chloride 0.9% 100 ML IVPB SCH (20:56)
[2019-08-26] MEDS: Acetaminophen 325 MG TAB PO PRN (20:57)
[2019-08-27] MEDS: Sodium Chloride 0.9% 1,000 ML IV SCH ×3 (02:06→20:57)
[2019-08-27 05:58] LABS: Anion Gap 13 mmol/L (10-20); BUN (Urea Nitrogen) 18 mg/dL (9.8-20.1); Calc. Creatinine Clearance 56 mL/min (70-130); Calcium 8.9 mg/dL (7.8-10.44); Carbon Dioxide 28 mmol/L (23-31); Chloride 104 mmol/L (98-107); Estimated GFR-MDRD 70; Glucose 109 mg/dL (83-110); Potassium 4.6 mmol/L (3.5-5.1); Sodium 140 mmol/L (136-145)
[2019-08-27 06:40] LABS: #Eosinphils 0.1 thou/uL (0.0-0.7); #Lymphocytes 1.4 thou/uL (1.20-3.40); #Neutrophils 14.2 thou/uL (1.40-6.50); %Basophils 0.1 % (0.0-1.0); %Eosinophils 0.8 % (0.0-10.0); %Lymphocytes 8.4 % (21.0-51.0); %Monocytes 6.2 % (0.0-10.0); %Neutrophils 84.5 % (42.0-75.0); Hemoglobin 10.3 g/dL (12.0-16.0); Mean Corpuscular Volume 99.8 fL (78.0-98.0); Platelet Count 184 thou/uL (130-400); RBC Distribution Width 11.8 % (11.5-14.5); Red Blood Cell (RBC) Count 3.22 mill/uL (4.20-5.40); White Blood Cell (WBC) Count 16.8 thou/uL (4.8-10.8)
[2019-08-27] MEDS ORDERED: Nitroglycerin 0.4 MG TAB 1 EACH SL SCH (07:15)
[2019-08-27] MEDS: levETIRAcetam 500 MG TAB PO SCH ×2 (09:03→20:58)
[2019-08-27] MEDS: Aspirin 81 mg Enteric Coated Tablet PO SCH (09:03)
[2019-08-27] MEDS: Clopidogrel Bisulfate 75 MG TAB PO SCH (09:03)
[2019-08-27] MEDS: Diltiazem HCl SR 60 mg Capsule PO SCH ×2 (11:05→20:58)
[2019-08-27] MEDS: Isosorbide Mononitrate (ER) 30 MG TAB PO SCH (11:06)
[2019-08-27] MEDS: Losartan 25 MG TAB PO SCH (11:06)
--- NOTE | 2019-08-27 13:51 | PDOC.HOSPP ---
- Subjective Encounter Date: 08/27/19 Encounter Time: 09:40 Subjective: pt's mentation labile, nurse at bedside, states pt becoming quite hypoxic, sats in 80s. admitted for LL PNA, and covid rule out. results pending. Labs shwoing high wbcs, leukopenia and neutrophilia. getting stat CT chest, and talk to upsetter helper, will move her to ICU. - Objective Vital Signs & Weight: Vital Signs (12 hours) Temp Pulse Resp BP Pulse Ox 08/27/19 12:00 100 08/27/19 08:00 97.8 F 102 H 20 109/63 97 08/27/19 05:00 98.3 F 101 H 20 98/50 L 91 L Weight Admit Weight 138 lb 14.24 oz Weight 138 lb 14.24 oz I&O: 08/26/19 08/27/19 08/28/19 06:59 06:59 06:59 Intake Total 1375 1849 1650 Output Total 400 Balance 1375 1849 1250 Result Diagrams: 08/27/19 06:22 08/27/19 05:07 Hospitalist ROS - Medication Medications: Active Medications Generic Name Dose Route Start Last Admin Trade Name Freq PRN Reason Stop Dose Admin Acetaminophen 650 mg 08/25/19 18:27 08/26/19 20:57 Tylenol PO 650 mg Q4H PRN Administration Headache/Fever/Mild Pain (1-3) Aspirin 81 mg 08/26/19 09:00 08/27/19 09:03 Ecotrin PO 81 mg DAILY DARWIN Administration Clopidogrel Bisulfate 75 mg 08/26/19 09:00 08/27/19 09:03 Plavix PO 75 mg DAILY DARWIN Administration Diltiazem HCl 60 mg 08/25/19 21:00 08/27/19 11:05 Cardizem Sr PO Not Given BID DARWIN Ceftriaxone Sodium 1 gm/ 100 mls @ 200 mls/hr 08/25/19 20:00 08/26/19 20:56 Sodium Chloride IVPB 100 mls Q24HR DARWIN Administration Doxycycline Hyclate 100 mg/ 100 mls @ 100 mls/hr 08/25/19 21:00 08/27/19 09: 03 Sodium Chloride IVPB 100 mls Q12HR DARWIN Administration Sodium Chloride 1,000 mls @ 125 mls/hr 08/25/19 18:27 08/27/19 11:06 Normal Saline 0.9% IV 1,000 mls .Q8H DARWIN Administration Isosorbide Mononitrate 30 mg 08/26/19 09:00 08/27/19 11:06 Imdur Er PO 30 mg DAILY DARWIN Administration Levetiracetam 500 mg 08/26/19 21:00 08/27/19 09:03 Keppra PO 500 mg BID DARWIN Administration Losartan Potassium 25 mg 08/26/19 09:00 08/27/19 11:06 Cozaar PO Not Given DAILY DARWIN Ondansetron HCl 4 mg 08/25/19 18:27 08/25/19 21:13 Zofran IVP 4 mg Q6H PRN Administration Nausea/Vomiting Pantoprazole Sodium 20 mg 08/26/19 09:00 08/27/19 09:03 Protonix PO 20 mg DAILY DARWIN Administration Sodium Chloride 10 ml 08/25/19 21:00 08/27/19 11:06 Flush - Normal Saline IVF Not Given Q12HR DARWIN - Exam General Appearance: ill appearing ENT: normocephalic atraumatic Heart: RRR Respiratory: normal chest expansion, rales Gastrointestinal: soft, normal bowel sounds Neurological - other findings: labile mentation Hosp A/P - Plan Acute hypoxic resp failure Hypoxia, worsening on , requiring ICU transfer. - on cTX, doxy - fw on the marielena and COVID --------->pending Hx of SEizure - now has some myoclonic jerks - increased keppra dose -consulted [facility] - make sure lytes panels ok Metabolic encephalopathy -2/2 hypoxia vs.. other HTN CAD -on ASA, plavix, cardizem, imdur and losartain ARABELLA-ppi -will dc ambien full code. states pt becoming quite hypoxic, sats in 80s. Admitted for LL PNA, and covid rule out. results pending. Labs showing high wbcs, leukopenia and neutrophilia. - May need bipap -stat abg -- -- last LFTs ok, CRP is high. will follow up on ferritin and LDH as these markers are also seems to be high in COVID pts, in addition toleukopenia and neutrophilia and transaminitis . getting stat CT chest, and talk to upsetter helper, will move her to ICU.
--- NOTE | 2019-08-27 14:26 | CON ---
DATE OF TELENEUROLOGY CONSULTATION: 08/27/2019 CHIEF COMPLAINT: Seizures or seizure-like activity. HISTORY OF PRESENT ILLNESS: I spoke to her daughter as well and history was also obtained from the patient as well as chart. The patient reports she never had seizures. The patient had a stent procedure performed in [place], [place], following which she had seizure-like activity and she continued to have myoclonic activity and she was also found to have left lower pneumonia and COVID-19 was suspected, and she was transferred. Her daughter was concerned about whether she needs to stay on Keppra. At this time, she remains stable and is more oriented today compared to yesterday. PREVIOUS MEDICAL HISTORY: Coronary artery disease, stent 18 months ago and again 2 months ago; COPD; hypertension; seizure disorder. MEDICATIONS: 1. Aspirin. 2. Plavix. 3. Diltiazem. 4. Ferrous sulfate. 5. Lasix. 6. Albuterol. 7. Imdur. 8. Keppra. 9. Protonix. 10. Losartan. ALLERGIES: LEVAQUIN, LORATADINE, MORPHINE, PHENYLEPHRINE, SUDAFED, CLARITIN, AZITHROMYCIN. PAST SURGICAL HISTORY: Ablation for SVT in 2018, cholecystectomy, arthroscopic knee surgery on the right, and hysterectomy. Recent stent placement. FAMILY HISTORY: Mother of heart problems, had rheumatic fever as a child. Father in an accident. Children are healthy. SOCIAL HISTORY: The patient's daughter helps her. She smoked a pack a day for decades and quit in 2009. There is no history of alcohol use. REVIEW OF SYSTEMS: PULMONARY: Positive for shortness of breath and cough and pneumonia. CARDIAC: Negative for chest pain or palpitations. GI: Negative for nausea, vomiting, or diarrhea. OPHTHALMOLOGY: Negative for any vision problems. DERMATOLOGIC: Negative for any skin lesions. HEMATOLOGIC: Negative for bleeding diatheses. DIAGNOSTIC STUDIES: White count 16.8, hemoglobin 10.3, hematocrit 32.1, platelet count 184. Chemistry; sodium 140, potassium 4.6, chloride 104, bicarbonate 28, BUN 18, creatinine 0.79, glucose 109, and TSH 1.07. Chest x-ray is positive for pneumonia in the left lower lobe. No [employer] imaging is available. She is pending final results on her COVID testing. PHYSICAL EXAMINATION: VITAL SIGNS: Temperature 97.8, pulse 102, respiratory rate 20, O2 saturations 97%, blood pressure 109/63. GENERAL APPEARANCE: Well-built, well-nourished lady, who seems comfortable in bed. CHEST: Clear vesicular breathing. CARDIOVASCULAR: S1 and S2 heard. No murmurs. ABDOMEN: Soft. CHEST: Clear vesicular breathing. CARDIOVASCULAR: S1 and S2 heard. No murmurs. ABDOMEN: Soft. NEUROLOGIC: Higher intellectual functions. Normal orientation to time, place, and person. Appropriate conversation. She is able to follow simple commands as well. Cranial nerves, normal extraocular movements. Pupils are 2 mm bilaterally reactive to light and tongue midline. No atrophy noted. Normal hearing to finger rub. No facial asymmetry noted. Normal sensation of the face bilaterally. Motor; bulk normal, tone normal. Strength 4/5 throughout in upper and lower extremities. This is more of a generalized weakness due to medical illness and no focal deficit was noted. Sensory normal to touch bilaterally. Cerebellar, normal [id number] and [id number]. IMPRESSION: The patient with history of seizure in the setting of stent procedure and continued to have intermittent myoclonic jerks, which is stopped. We did not notice any myoclonus or seizure activity. Her examination was normal except mild generalized weakness, which we sometimes see in people with systemic illness. She has pneumonia and she has pending results for COVID testing. At this time, seizures could be secondary to COVID or due to her respiratory issues, likely hypoxia- induced myoclonus and the patient remained stable. RECOMMENDATIONS: Once COVID testing is completed, if she is going negative, proceed with MRI of the brain. I do not suspect any acute structural lesion. For now, continue Keppra at a higher dosage and Neurology will follow up as needed. Please call me if you have any further questions. I discussed the need for Keppra with her daughter as well. Job ID: [id number] MTDD
--- NOTE | 2019-08-27 14:58 | RAD ---
Chest one view HISTORY: Dyspnea. COMPARISON: 08/25/2019. FINDINGS: Cardiac silhouette is magnified by projection. Mediastinum is rotated rightward with the pa tient. Pulmonary vasculature upper limits of normal. Ill-defined parenchymal opacity within the left lower l obe is similar in appearance to the prior exam. Blunting of left lateral costophrenic angle has increased slightly. There is now slight blunting of the right costophrenic angle. IMPRESSION : Slight interval increase in bilateral pleural fluid. Infiltrate at the left lower lobe appear stable otherwise.
--- NOTE | 2019-08-27 17:15 | CON ---
DATE OF CONSULTATION: 08/27/2019 CHIEF COMPLAINT: Impending respiratory failure. PRESENT ILLNESS: Ms. Maravilla is an 79-year-old female who was admitted to the hospital on August 24. At that time, she was deemed to be a poor historian, but gave evidence suggesting some seizure like activity. These were not typical tonic-clonic activity but rather a tic type maneuvers. She seemed to think these were related to having gotten stents and a previous ablation. In the emergency room, she denied any complaints of shortness of breath, cough or fever, but had evidence of a left lower lobe infiltrate. COVID swab was obtained and she was admitted at that time with a diagnosis of community-acquired pneumonia. She was given empiric antibiotic therapy with Rocephin plus oral doxycycline. In the interval 48 hours, she has been about the same time. There have been notes in the medical record regarding her perception of ongoing "seizure" type activities. She was noted today to be developing some increasing respiratory difficulty and had saturations into the 80s. A rapid response was called and the patient was subsequently transferred to the intensive care unit. Since arrival in the ICU, she has been on supplemental oxygen, but no more than 3 L nasal cannula. Saturations are as high as 100%. Pulmonary Service is consulted to assist in medical management. SOCIAL HISTORY: The patient is an 79-year-old female. She does have a past smoking history. ALLERGIES: SHE REPORTS MEDICATION INTOLERANCE TO LEVAQUIN, LORATADINE, MORPHINE, PHENYLEPHRINE, SUDAFED, CLARITIN, AND POSSIBLY AZITHROMYCIN. MEDICATIONS: Her routine home medications include; 1. Aspirin 81 daily. 2. Plavix 75 daily. 3. Cardizem 60 b.i.d. 4. Iron daily. 5. Lasix 20 daily. 6. Albuterol p.r.n. 7. Imdur 30 daily. 8. Keppra 250 b.i.d. 9. Protonix 20 daily. 10. Losartan 25 daily. PAST MEDICAL HISTORY: Remarkable for coronary artery disease with previous stents. She has a history COPD, hypertension, and seizure disorder. The patient did have ablation for supraventricular tachycardia in 2018. SURGICAL HISTORY: Ablation, cholecystectomy, arthroscopy of the right knee. FAMILY HISTORY: Noncontributory. REVIEW OF SYSTEMS: Remarkable as noted above and is detailed in her admitting history and physical. She is a difficult historian. I am not sure which of her notations to believe. PHYSICAL EXAMINATION: VITAL SIGNS: Blood pressure currently 109/63, heart rate 102, she is afebrile. Oxygen saturation 99 on 3 L cannula. BMI is 25. GENERAL: She is an 79-year-old female. She is sitting in the bed. She is conversant but lacks focus and often repeats herself and does not answer the question as directly asked. She is not using accessory muscles. Sentences appear to be fairly full in length. HEENT: She has no oral Yady. She has no cervical or supraclavicular lymphadenopathy. She has no JVD. LUNGS: Show bronchial breath sounds, but no wheezing. Right is nonlabored. She does not have any pursed lip activity. HEART: Regular rate and rhythm. I do not hear a murmur nor gallop. ABDOMEN: Soft. There is no organomegaly. EXTREMITIES: She has no edema. NEUROLOGIC: She is nonfocal. She is able to give a history but very rambling and non focused. LABORATORY DATA: White count 16,800, down from 25,000 on admission; hemoglobin is 10.3; platelet count 184,000. She initially had 30% bands on her differential. Electrolytes are normal. Troponin is negative. CRP is slightly elevated. TSH was negative. Chest x-ray showed area of consolidation in the left lung base. Repeat x-ray since admission to the ICU is pending. Influenza A and B were both negative. COVID is pending. Blood cultures on admission are negative to date. IMPRESSION: 1. Left lower lung pneumonia. The patient presents with what appears to be a typical community-acquired pneumonia. Cultures negative. We are 48 hours into an assessment for COVID, although my suspicion is somewhat low. Today's event with desaturation is difficult to explain and she is currently noted to have 100% saturation on 3 L. I anticipate that we will continue antibiotic therapy, repeat her x-ray, and await her COVID test. I do not see evidence that she needs intubation with mechanical ventilatory support at this time. Unfortunately, we do not know how close her level of mentation is to baseline. 2. History of supraventricular tachycardia, status post ablation. 3. History of atypical seizures. 4. History of atherosclerotic vascular disease with previous coronary stent. PLAN: She is admitted now to the ICU and repeat chest x-ray is pending. She is requiring only minimal oxygen saturation and I do not think that we need to intubate her. Repeat x-ray is pending. COVID test has been pending now for approximately 48 hours and hopefully we will be back fairly sent. We will try to find family so that we can decide how much of her current neurologic status is chronic versus acutely changed. Thank you for this consultation. Job ID: [id number]
--- NOTE | 2019-08-27 18:30 | OP ---
DATE OF PROCEDURE: 08/27/2019 PROCEDURE PERFORMED: Right internal jugular triple-lumen catheter. PREOPERATIVE DIAGNOSIS: Lack of IV access. POSTOPERATIVE DIAGNOSIS: Lack of IV access. DESCRIPTION OF PROCEDURE: Following informed consent, the patient was prepped and draped in the usual fashion. An initial attempt was made via the right subclavian approach. The vein could be cannulated. However, on multiple attempts, a wire could not be successfully threaded. A subsequent attempt was then made via the right internal jugular approach. The wire was placed and the catheter threaded in the usual fashion. The catheter was secured and all ports were flushed. No complication was noted. Postprocedure x-ray was pending. Job ID: [id number]
--- NOTE | 2019-08-27 18:41 | RAD ---
CHEST ONE VIEW: History: Central line placement. FINDINGS: Heart size is within normal limits. There are atherosclerotic changes of the aorta. Bilateral pleural effusions are noted. There is some worsening parenchymal change in the right base. No signs for pneu mothorax. IMPRESSION: 1. Placement of a right sided central line, catheter tip overlies the superior vena cava. No signs of pneumothorax. 2. Suggestion of bilateral pleural effusions. Bibasilar lung changes are again noted, slightly worse in the right base. POS: DIOGO
[2019-08-27] MEDS: cefTRIAXone\\ROCEPHIN 1 GM in Sodium Chloride 0.9% 100 ML IVPB SCH (20:57)
[2019-08-28] MEDS: Sodium Chloride 0.9% 1,000 ML IV SCH ×4 (03:38→21:15)
[2019-08-28 04:34] LABS: #Eosinphils 0.1 thou/uL (0.0-0.7); #Lymphocytes 0.6 thou/uL (1.20-3.40); #Monocytes 0.9 thou/uL (0.11-0.59); %Basophils 0.1 % (0.0-1.0); %Eosinophils 0.5 % (0.0-10.0); %Lymphocytes 4.1 % (21.0-51.0); %Monocytes 5.6 % (0.0-10.0); %Neutrophils 89.7 % (42.0-75.0); Hemoglobin 9.8 g/dL (12.0-16.0); Mean Corpuscular HGB CONC 31.8 g/dL (32.0-36.0); Mean Platelet Volume 9.3 fL (7.4-10.4); Platelet Count 202 thou/uL (130-400); RBC Distribution Width 11.6 % (11.5-14.5); Red Blood Cell (RBC) Count 3.07 mill/uL (4.20-5.40); White Blood Cell (WBC) Count 15.6 thou/uL (4.8-10.8)
[2019-08-28 04:52] LABS: Anion Gap 11 mmol/L (10-20); BUN (Urea Nitrogen) 21 mg/dL (9.8-20.1); Calc. Creatinine Clearance 66 mL/min (70-130); Calcium 9.3 mg/dL (7.8-10.44); Carbon Dioxide 30 mmol/L (23-31); Chloride 104 mmol/L (98-107); Estimated GFR-MDRD 83; Glucose 124 mg/dL (83-110); Potassium 4.7 mmol/L (3.5-5.1); Sodium 140 mmol/L (136-145)
[2019-08-28 07:06] LABS: Actual Bicarbonate (HCO3a) 31.4 mEq/L (22-28); Base Excess (BEa) 0.8 mEq/L (-2.0 to +3.0); Calcium, Ionized 1.34 mmol/L (1.12-1.30); Carboxyhemoglobin (COHb) 1.3 gm% (0.0-3.0); Hemoglobin (Hb) 10.3 g/dL (12.0-16.0); Potassium - ABG Lab 4.79 mmol/L (3.70-5.30)
[2019-08-28 07:47] LABS: CO2 Tension 92.4 mmHg (35.0-45.0); O2 Tension (PaO2) 52.1 mmHg (> 60.0); pH, Arterial 7.15 (7.35-7.45)
[2019-08-28 07:48] LABS: Puncture Site RRAD
[2019-08-28 08:25] LABS: Actual Bicarbonate (HCO3a) 29.4 mEq/L (22-28); Base Excess (BEa) -0.1 mEq/L (-2.0 to +3.0); Calcium, Ionized 1.33 mmol/L (1.12-1.30); Carboxyhemoglobin (COHb) 1.1 gm% (0.0-3.0); Hemoglobin (Hb) 10.3 g/dL (12.0-16.0); O2 Tension (PaO2) 66.7 mmHg (> 60.0); Potassium - ABG Lab 4.73 mmol/L (3.70-5.30)
--- NOTE | 2019-08-28 08:25 | RAD ---
PORTABLE CHEST: HISTORY: Pneumonia. COMPARISON: 08/27/2019. FINDINGS: Small bilateral pleural effusions obscure the CP angles. There is hazy interstitial bilateral perihi lar infiltrate, slightly more pronounced on the left. Vascular markings appear upper normal. Centra l line is unchanged. IMPRESSION: The bilateral interstitial prominence has improved when compared to yesterday's exam and the right lo wer lung opacity has improved. POS: [facility]DI
[2019-08-28 08:30] LABS: ALV-art Gradient 63.085 (0-20); CO2 Tension 78.7 mmHg (35.0-45.0); Puncture Site RRAD; pH, Arterial 7.19 (7.35-7.45)
[2019-08-28] MEDS: Clopidogrel Bisulfate 75 MG TAB PO SCH (09:21)
[2019-08-28] MEDS: Losartan 25 MG TAB PO SCH (09:22)
[2019-08-28] MEDS: Aspirin 81 mg Enteric Coated Tablet PO SCH (09:22)
[2019-08-28] MEDS: levETIRAcetam 500 MG TAB PO SCH ×2 (09:22→21:11)
[2019-08-28] MEDS: Diltiazem HCl SR 60 mg Capsule PO SCH ×2 (09:31→21:19)
[2019-08-28] MEDS: Isosorbide Mononitrate (ER) 30 MG TAB PO SCH (09:31)
[2019-08-28 11:37] LABS: Actual Bicarbonate (HCO3a) 30.9 mEq/L (22-28); Base Excess (BEa) 2.9 mEq/L (-2.0 to +3.0); Calcium, Ionized 1.32 mmol/L (1.12-1.30); Carboxyhemoglobin (COHb) 1.2 gm% (0.0-3.0); Hemoglobin (Hb) 9.8 g/dL (12.0-16.0); O2 Tension (PaO2) 64.4 mmHg (> 60.0); Potassium - ABG Lab 4.66 mmol/L (3.70-5.30); pH, Arterial 7.27 (7.35-7.45)
[2019-08-28 11:43] LABS: ALV-art Gradient 78.385 (0-20); CO2 Tension 68.3 mmHg (35.0-45.0); Puncture Site RRAD
[2019-08-28] MEDS ORDERED: Nitroglycerin 0.4 MG TAB (25 Tab Bottle) SL PRN (13:31)
--- NOTE | 2019-08-28 14:22 | PQF ---
CLINICAL DOCUMENTATION IMPROVEMENT CLARIFICATION FORM: ICD-10 Updated PLEASE DO AN ADDENDUM TO THE PROGRESS NOTE WITH ANY DOCUMENTATION UPDATES OR ADDITIONS AND CARRY THROUGH TO DC SUMMARY. THANK YOU. DATE: 08/28/19 ATTN: DR. DAVENPORT Please exercise your independent, professional judgment in responding to the clarification form. Clinical indicators are provided on the bottom of this form for your review Please check appropriate box(s) to clarify if the following diagnosis has been ruled in or ruled out: SEPSIS [ ] Ruled in diagnosis [ x ] Continue to treat [ ] Resolved [ ] Ruled out diagnosis [ ] Improving [ ] Cannot rule out diagnosis [ ] Other diagnosis [ ] Unable to determine In addition, please specify: Present on Admission (POA): [ ] Yes [ ] No [ ] Unable to determine For continuity of documentation, please document condition throughout progress notes and discharge summary. Thank You. CLINICAL INDICATORS - SIGNS / SYMPTOMS / LABS / RESULTS AND LOCATION IN ER NOTE: "SEPSIS" BP 98/42 RR 24 WBC 4/3: 25.6 BANDS 4/3: 30 LACTIC ACID 4/3: 2.5 CPR 4/3: 3.97 RISKS: PNEUMONIA (ER NOTE) TREATMENT: IV FLUIDS (ER-PRESENT) IV ROCEPHIN (4/3-PRESENT) IV CEFEPIME (ER) IV VIBRAMYCIN (4/3-PRESENT) CRITICAL CARE MONITORING FLU TESTING COVID-19 TESTING URINE AND BLOOD CULTURES /3 (This form is maintained as a part of the permanent medical record) 2014 [employer]. All Rights Reserved [email or web address]
--- NOTE | 2019-08-28 15:33 | PDOC.HOSPP ---
- Subjective Encounter Date: 08/28/19 Encounter Time: 14:00 Subjective: pt on bipap now, covid neg., plan to continue monitoring in ICU for now. d/w RN. - Objective Vital Signs & Weight: Vital Signs (12 hours) Temp Pulse Resp Pulse Ox 08/28/19 15:00 98.5 F 08/28/19 14:42 70 20 99 08/28/19 11:00 98.2 F 08/28/19 07:41 96 08/28/19 07:24 85 21 H 95 08/28/19 07:00 97.8 F 08/28/19 04:00 98.4 F 98 Weight Admit Weight 138 lb 14.24 oz Weight 138 lb 14.24 oz Most Recent Monitor Data Heart Rate from ECG 66 NIBP 111/50 NIBP BP-Mean 70 Respiration from ECG 19 SpO2 100 I&O: 08/27/19 08/28/19 08/29/19 06:59 06:59 06:59 Intake Total 1849 3126 Output Total 963 340 Balance 1849 2165 -340 Result Diagrams: 08/28/19 03:40 08/28/19 03:40 Hospitalist ROS - Medication Medications: Active Medications Generic Name Dose Route Start Last Admin Trade Name Freq PRN Reason Stop Dose Admin Acetaminophen 650 mg 08/25/19 18:27 08/26/19 20:57 Tylenol PO 650 mg Q4H PRN Administration Headache/Fever/Mild Pain (1-3) Aspirin 81 mg 08/26/19 09:00 08/28/19 09:22 Ecotrin PO 81 mg DAILY DARWIN Administration Clopidogrel Bisulfate 75 mg 08/26/19 09:00 08/28/19 09:21 Plavix PO 75 mg DAILY DARWIN Administration Diltiazem HCl 60 mg 08/25/19 21:00 08/28/19 09:31 Cardizem Sr PO 60 mg BID DARWIN Administration Ceftriaxone Sodium 1 gm/ 100 mls @ 200 mls/hr 08/25/19 20:00 08/27/19 20:57 Sodium Chloride IVPB 100 mls Q24HR DARWIN Administration Doxycycline Hyclate 100 mg/ 100 mls @ 100 mls/hr 08/25/19 21:00 08/28/19 09: 31 Sodium Chloride IVPB 100 mls Q12HR DARWIN Administration Sodium Chloride 1,000 mls @ 125 mls/hr 08/25/19 18:27 08/28/19 10:02 Normal Saline 0.9% IV Not Given .Q8H DARWIN Isosorbide Mononitrate 30 mg 08/26/19 09:00 08/28/19 09:31 Imdur Er PO 30 mg DAILY DARWIN Administration Levetiracetam 500 mg 08/26/19 21:00 08/28/19 09:22 Keppra PO 500 mg BID DARWIN Administration Losartan Potassium 25 mg 08/26/19 09:00 08/28/19 09:22 Cozaar PO 25 mg DAILY DARWIN Administration Ondansetron HCl 4 mg 08/25/19 18:27 08/25/19 21:13 Zofran IVP 4 mg Q6H PRN Administration Nausea/Vomiting Pantoprazole Sodium 20 mg 08/26/19 09:00 08/28/19 09:21 Protonix PO 20 mg DAILY DARWIN Administration Sodium Chloride 10 ml 08/25/19 21:00 08/28/19 09:23 Flush - Normal Saline IVF 10 ml Q12HR DARWIN Administration - Exam General Appearance: NAD, awake alert Eye: PERRL ENT: normocephalic atraumatic Neck: supple Heart: RRR Respiratory: CTAB, normal chest expansion Respiratory - other findings: bipap Gastrointestinal: soft, normal bowel sounds Hosp A/P - Plan Acute hypoxic resp failure Hypoxia, worsening on , requiring ICU transfer. - on cTX, doxy - fw on the marielena and COVID --->neg. Hx of SEizure - now has some myoclonic jerks - increased keppra dose -consulted [facility]ero - make sure lytes panels ok Metabolic encephalopathy -2/2 hypoxia vs.. other -improving. HTN CAD -on ASA, plavix, cardizem, imdur and losartain ARABELLA-ppi -will dc ambien full code. stable on bipap COVID - neg.
[2019-08-28] MEDS ORDERED: methylPREDNISolone Sod Succ 40 MG VIAL IVP SCH (19:00)
--- NOTE | 2019-08-28 20:57 | PRG ---
DATE OF SERVICE: 08/28/2019 SUBJECTIVE: Ms. Maravilla's events over the weekend have been reviewed. Hemodynamics have been stable. OBJECTIVE: VITAL SIGNS: Heart rate is in the 70s, blood pressure is seen in 110/87, respiratory rate is in the teens, oximetry is 100%. HEAD AND NECK: Unchanged. LUNGS: Clear anteriorly. HEART: Regular rhythm. ABDOMEN: Soft. DIAGNOSTIC DATA: Chest x-ray shows improvement of her infiltrate at her right base. COVID was ruled out. IMPRESSION: 1. Pneumonia. 2. Supraventricular tachycardia, status post ablation. 3. ?Seizures. 4. Carbon dioxide retention, likely secondary to underlying chronic obstructive pulmonary disease exacerbation. Nebulizer treatments were started. With BiPAP, her gas exchange and acid-base abnormalities improved. Hopefully, we can avoid intubation given that she is 79 years of age and does not appear fatigued at the time of consultation. We will be happy to follow the other physicians caring for. CRITICAL CARE TIME: 30 minutes. Job ID: [id number]
[2019-08-28] MEDS: cefTRIAXone\\ROCEPHIN 1 GM in Sodium Chloride 0.9% 100 ML IVPB SCH (21:50)
[2019-08-29] MEDS: methylPREDNISolone Sod Succ 40 MG VIAL IVP SCH ×4 (00:41→18:37)
[2019-08-29] MEDS: Bacteriostatic Water 30 ML VIAL FS PRN ×2 (00:41→05:35)
[2019-08-29 04:05] LABS: #Lymphocytes 0.6 thou/uL (1.20-3.40); #Monocytes 0.1 thou/uL (0.11-0.59); #Neutrophils 7.7 thou/uL (1.40-6.50); %Basophils 0.1 % (0.0-1.0); %Eosinophils 0.1 % (0.0-10.0); %Lymphocytes 6.6 % (21.0-51.0); %Monocytes 0.7 % (0.0-10.0); %Neutrophils 92.5 % (42.0-75.0); Hemoglobin 8.5 g/dL (12.0-16.0); Mean Corpuscular HGB CONC 32.4 g/dL (32.0-36.0); Mean Corpuscular Hemoglobin 31.9 pg (27.0-31.0); Mean Corpuscular Volume 98.5 fL (78.0-98.0); Mean Platelet Volume 9.2 fL (7.4-10.4); Platelet Count 179 thou/uL (130-400); RBC Distribution Width 11.7 % (11.5-14.5); Red Blood Cell (RBC) Count 2.66 mill/uL (4.20-5.40); White Blood Cell (WBC) Count 8.4 thou/uL (4.8-10.8)
[2019-08-29 04:26] LABS: Anion Gap 10 mmol/L (10-20); BUN (Urea Nitrogen) 22 mg/dL (9.8-20.1); Calc. Creatinine Clearance 63 mL/min (70-130); Calcium 9.2 mg/dL (7.8-10.44); Carbon Dioxide 30 mmol/L (23-31); Chloride 107 mmol/L (98-107); Estimated GFR-MDRD 79; Glucose 166 mg/dL (83-110); Potassium 4.2 mmol/L (3.5-5.1); Sodium 143 mmol/L (136-145)
[2019-08-29] MEDS: levETIRAcetam 500 MG TAB PO SCH ×2 (08:34→20:28)
[2019-08-29] MEDS: Aspirin 81 mg Enteric Coated Tablet PO SCH (08:34)
[2019-08-29] MEDS: Diltiazem HCl SR 60 mg Capsule PO SCH ×2 (08:34→20:55)
[2019-08-29] MEDS: Isosorbide Mononitrate (ER) 30 MG TAB PO SCH (08:34)
[2019-08-29] MEDS: Clopidogrel Bisulfate 75 MG TAB PO SCH (08:34)
[2019-08-29] MEDS: Losartan 25 MG TAB PO SCH (08:35)
[2019-08-29 09:44] LABS: Actual Bicarbonate (HCO3a) 29.2 mEq/L (22-28); Base Excess (BEa) 3.3 mEq/L (-2.0 to +3.0); CO2 Tension 51.5 mmHg (35.0-45.0); Calcium, Ionized 1.29 mmol/L (1.12-1.30); Hemoglobin (Hb) 9.1 g/dL (12.0-16.0); Potassium - ABG Lab 3.92 mmol/L (3.70-5.30); pH, Arterial 7.37 (7.35-7.45)
[2019-08-29 09:45] LABS: O2 Tension (PaO2) 58.6 mmHg (> 60.0)
[2019-08-29 09:46] LABS: ALV-art Gradient 76.665 (0-20)
--- NOTE | 2019-08-29 13:39 | PDOC.HOSPP ---
- Subjective Encounter Date: 08/29/19 Encounter Time: 10:50 Subjective: she feels better today, sign.head shakes and tremor, understandably MRI- brain cancelled. - Objective Vital Signs & Weight: Vital Signs (12 hours) Temp Pulse Resp Pulse Ox 08/29/19 12:00 98.8 F 20 08/29/19 11:00 83 24 H 100 08/29/19 07:50 98 08/29/19 07:29 98.6 F 08/29/19 06:43 71 17 100 08/29/19 06:42 68 17 100 08/29/19 03:23 76 19 100 08/29/19 03:22 19 100 Weight Admit Weight 138 lb 14.24 oz Weight 138 lb 14.24 oz Most Recent Monitor Data Heart Rate from ECG 91 NIBP 124/84 NIBP BP-Mean 97 Respiration from ECG 19 SpO2 99 I&O: 08/28/19 08/29/19 08/30/19 06:59 06:59 06:59 Intake Total 3128 1748 740 Output Total 963 935 350 Balance 2165 813 390 Result Diagrams: 08/29/19 03:40 08/29/19 03:40 Hospitalist ROS - Medication Medications: Active Medications Generic Name Dose Route Start Last Admin Trade Name Freq PRN Reason Stop Dose Admin Acetaminophen 650 mg 08/25/19 18:27 08/26/19 20:57 Tylenol PO 650 mg Q4H PRN Administration Headache/Fever/Mild Pain (1-3) Albuterol/Ipratropium 3 ml 08/28/19 18:30 08/29/19 11:00 Duoneb NEB 3 ml [id number] DARWIN Administration Aspirin 81 mg 08/26/19 09:00 08/29/19 08:34 Ecotrin PO 81 mg DAILY DARWIN Administration Clopidogrel Bisulfate 75 mg 08/26/19 09:00 08/29/19 08:34 Plavix PO 75 mg DAILY DARWIN Administration Diltiazem HCl 60 mg 08/25/19 21:00 08/29/19 08:34 Cardizem Sr PO 60 mg BID DARWIN Administration Ceftriaxone Sodium 1 gm/ 100 mls @ 200 mls/hr 08/25/19 20:00 08/28/19 21:50 Sodium Chloride IVPB 100 mls Q24HR DARWIN Administration Doxycycline Hyclate 100 mg/ 100 mls @ 100 mls/hr 08/25/19 21:00 08/29/19 08: 35 Sodium Chloride IVPB 100 mls Q12HR DAWRIN Administration Sodium Chloride 1,000 mls @ 50 mls/hr 08/28/19 18:45 08/28/19 21:15 Normal Saline 0.9% IV 1,000 mls .Q20H DARWIN Administration Isosorbide Mononitrate 30 mg 08/26/19 09:00 08/29/19 08:34 Imdur Er PO 30 mg DAILY DRAWIN Administration Levetiracetam 500 mg 08/26/19 21:00 08/29/19 08:34 Keppra PO 500 mg BID DARWIN Administration Losartan Potassium 25 mg 08/26/19 09:00 08/29/19 08:35 Cozaar PO 25 mg DAILY DARWIN Administration Methylprednisolone Sodium Succinate 40 mg 08/28/19 23:59 08/29/19 12:18 Solu-Medrol IVP 40 mg Q6HR DARWIN Administration Ondansetron HCl 4 mg 08/25/19 18:27 08/25/19 21:13 Zofran IVP 4 mg Q6H PRN Administration Nausea/Vomiting Pantoprazole Sodium 20 mg 08/26/19 09:00 08/29/19 08:35 Protonix PO 20 mg DAILY DARWIN Administration Sodium Chloride 10 ml 08/25/19 21:00 08/29/19 08:42 Flush - Normal Saline IVF 10 ml Q12HR DARWIN Administration Sterile Water 1 ml 08/28/19 18:46 08/29/19 05:35 Bacteriostatic Water FS 1 ml PRN PRN Administration RECONSTITUTION - Exam General Appearance: NAD, awake alert ENT: normocephalic atraumatic Neck: supple Heart: RRR Respiratory: CTAB, normal chest expansion Gastrointestinal: soft, normal bowel sounds Neurological: cranial nerve grossly intact, no focal deficits Hosp A/P - Plan Acute hypoxic and hypercapnic resp failure Hypoxia, worsening on , requiring ICU transfer. - on cTX, doxy - fw on the marielena and COVID --->neg. _leukoctyosis resolved/ -- stop abx on 10th Hx of SEizure - now has some myoclonic jerks - increased keppra dose -[facility]MRI was xavier'd - but unable to do that d/t her tremors/ shakes +/- jerks? - make sure lytes panels ok Metabolic encephalopathy--->resolved -2/2 hypoxia vs.. other HTN CAD SVT -on ASA, plavix, cardizem, imdur and losartain ARABELLA-ppi -will dc ambien full code. stable on bipap----------> now on COVID - neg. - on cTX, doxy--stop on
--- NOTE | 2019-08-29 14:54 | PRG ---
DATE OF SERVICE: 08/29/2019 SUBJECTIVE: Ms. Maravilla is dramatically improved. She quickly says she was "out of it yesterday." She says she feels much better. OBJECTIVE: VITAL SIGNS: Heart rates in the 90s, blood pressure 136/64, respiratory rates in the 20s. She is off BiPAP this morning. LUNGS: Clear and distant. HEART: Regular rhythm. ABDOMEN: Soft. EXTREMITIES: Without edema. LABORATORY DATA: White count 8.4, hemoglobin 8.5, and platelets 179. Sodium 143, potassium 4.2, chloride 107, bicarb 30, BUN 22, and creatinine 0.7. Blood gas this morning; pH 7.37, CO2 of 51, pO2 of 58, which is close to her baseline. IMPRESSION: 1. Chronic obstructive pulmonary disease exacerbation. 2. Chronic respiratory failure with hypercarbia and hypoxia with an acute exacerbation. Overall, she appears to be improved. She might benefit from long-term having a Trilogy nocturnal ventilator at home. We will continue setting this up as we move forward. Job ID: [id number]
[2019-08-29] MEDS: Sodium Chloride 0.9% 1,000 ML IV SCH (17:13)
[2019-08-29] MEDS: cefTRIAXone\\ROCEPHIN 1 GM in Sodium Chloride 0.9% 100 ML IVPB SCH (20:26)
[2019-08-30] MEDS: methylPREDNISolone Sod Succ 40 MG VIAL IVP SCH ×4 (00:30→17:37)
[2019-08-30] MEDS: Diltiazem HCl SR 60 mg Capsule PO SCH ×2 (09:17→20:03)
[2019-08-30] MEDS: Clopidogrel Bisulfate 75 MG TAB PO SCH (09:17)
[2019-08-30] MEDS: Aspirin 81 mg Enteric Coated Tablet PO SCH (09:17)
[2019-08-30] MEDS: Losartan 25 MG TAB PO SCH (09:21)
[2019-08-30] MEDS: Isosorbide Mononitrate (ER) 30 MG TAB PO SCH (09:21)
[2019-08-30] MEDS: levETIRAcetam 500 MG TAB PO SCH ×2 (09:22→20:03)
--- NOTE | 2019-08-30 11:59 | PDOC.HOSPP ---
- Subjective Encounter Date: 08/30/19 Encounter Time: 08:40 Subjective: pt doing well, no acute events, afebirle. - Objective Vital Signs & Weight: Vital Signs (12 hours) Temp Pulse Resp Pulse Ox 08/30/19 11:11 98.1 F 08/30/19 10:34 93 26 H 98 08/30/19 07:33 98 08/30/19 07:26 88 16 92 L 08/30/19 07:20 96.2 F L 08/30/19 03:38 97.6 F 08/30/19 01:30 96 20 99 Weight Admit Weight 138 lb 14.24 oz Weight 138 lb 14.24 oz Most Recent Monitor Data Heart Rate from ECG 93 NIBP 182/115 NIBP BP-Mean 137 Respiration from ECG 21 SpO2 100 I&O: 08/29/19 08/30/19 08/31/19 06:59 06:59 06:59 Intake Total 1748 2320 Output Total 935 1070 Balance 813 1250 Result Diagrams: 08/29/19 03:40 08/29/19 03:40 Hospitalist ROS - Medication Medications: Active Medications Generic Name Dose Route Start Last Admin Trade Name Freq PRN Reason Stop Dose Admin Acetaminophen 650 mg 08/25/19 18:27 08/26/19 20:57 Tylenol PO 650 mg Q4H PRN Administration Headache/Fever/Mild Pain (1-3) Albuterol/Ipratropium 3 ml 08/28/19 18:30 08/30/19 10:34 Duoneb NEB 3 ml [id number] DARWIN Administration Aspirin 81 mg 08/26/19 09:00 08/30/19 09:17 Ecotrin PO 81 mg DAILY DARWIN Administration Clopidogrel Bisulfate 75 mg 08/26/19 09:00 08/30/19 09:17 Plavix PO 75 mg DAILY DARWIN Administration Diltiazem HCl 60 mg 08/25/19 21:00 08/30/19 09:17 Cardizem Sr PO 60 mg BID DARWIN Administration Ceftriaxone Sodium 1 gm/ 100 mls @ 200 mls/hr 08/25/19 20:00 08/29/19 20:26 Sodium Chloride IVPB 100 mls Q24HR DARWIN Administration Doxycycline Hyclate 100 mg/ 100 mls @ 100 mls/hr 08/25/19 21:00 08/30/19 09: 18 Sodium Chloride IVPB 100 mls Q12HR DARWIN Administration Sodium Chloride 1,000 mls @ 50 mls/hr 08/28/19 18:45 08/29/19 17:13 Normal Saline 0.9% IV 1,000 mls .Q20H DARWIN Administration Isosorbide Mononitrate 30 mg 08/26/19 09:00 08/30/19 09:21 Imdur Er PO 30 mg DAILY DARWIN Administration Levetiracetam 500 mg 08/26/19 21:00 08/30/19 09:22 Keppra PO 500 mg BID DARWIN Administration Losartan Potassium 25 mg 08/26/19 09:00 08/30/19 09:21 Cozaar PO 25 mg DAILY DARWIN Administration Methylprednisolone Sodium Succinate 40 mg 08/28/19 23:59 08/30/19 06:06 Solu-Medrol IVP 40 mg Q6HR DARWIN Administration Ondansetron HCl 4 mg 08/25/19 18:27 08/25/19 21:13 Zofran IVP 4 mg Q6H PRN Administration Nausea/Vomiting Pantoprazole Sodium 20 mg 08/26/19 09:00 08/30/19 09:21 Protonix PO 20 mg DAILY DARWIN Administration Sodium Chloride 10 ml 08/25/19 21:00 08/30/19 09:21 Flush - Normal Saline IVF 10 ml Q12HR DARWIN Administration Sterile Water 1 ml 08/28/19 18:46 08/29/19 05:35 Bacteriostatic Water FS 1 ml PRN PRN Administration RECONSTITUTION - Exam General Appearance: NAD, awake alert Eye: PERRL ENT: normocephalic atraumatic Neck: supple Heart: RRR Respiratory: CTAB, normal chest expansion Gastrointestinal: soft, normal bowel sounds Neurological: no focal deficits Hosp A/P - Plan Acute hypoxic and hypercapnic resp failure Hypoxia, worsening on , requiring ICU transfer. - on cTX, doxy - fw on the marielena and COVID --->neg. _leukoctyosis resolved -- stop abx on stable on bipap----------> now on & COVID - neg. Hx of SEizure - had myoclonic jerks ---resolved. - [facility] - but unable to do that d/t her tremors/ shakes +/- jerks? Metabolic encephalopathy--->resolved -2/2 hypoxia vs.. other HTN CAD SVT -on ASA, plavix, cardizem, imdur and losartain ARABELLA-ppi - on CTX, doxy--stop on 10th PT consulted. Pulm plan on getting trilogy Nocturnal ventilator for home use. full code.
--- NOTE | 2019-08-30 13:56 | EKG ---
Test Reason : Blood Pressure : / mmHG Vent. Rate : 079 BPM Atrial Rate : 079 BPM P-R Int : 138 ms QRS Dur : 074 ms QT Int : 350 ms P-R-T Axes : 074 -12 048 degrees QTc Int : 401 ms Sinus rhythm with Premature atrial complexes Low voltage QRS Nonspecific T wave abnormality Abnormal ECG Confirmed by MARIAM STAPLES DO ([id number]), acquisitions editor HEIDI FRYE ([id number]) on 08/30/2019 1:55:34 PM Referred By: Confirmed By:MARIAM STAPLES DO
--- NOTE | 2019-08-30 14:42 | PRG ---
DATE OF SERVICE: 08/30/2019 SUBJECTIVE: Taiwo did not wear BiPAP last night. She says because it was hurting her nose. She says she feels good today. OBJECTIVE: VITAL SIGNS: She is afebrile. Heart rate is 100, blood pressure 150/50. Oximetry is in the 90s. GENERAL: She is talking in complete sentences. LUNGS: Distant and clear. HEART: Regular rhythm. ABDOMEN: Soft. LABORATORY DATA: No new lab today. IMPRESSION AND PLAN: Chronic obstructive pulmonary disease exacerbation with respiratory failure. She is fortunately successfully treated with noninvasive ventilation. We will continue current care. She wants to get out of bed and start walking, so Physical Therapy will be consulted. Job ID: [id number]
[2019-08-30] MEDS: Sodium Chloride 0.9% 1,000 ML IV SCH (17:37)
[2019-08-30] MEDS: cefTRIAXone\\ROCEPHIN 1 GM in Sodium Chloride 0.9% 100 ML IVPB SCH (20:01)
[2019-08-31] MEDS: methylPREDNISolone Sod Succ 40 MG VIAL IVP SCH ×5 (00:05→23:29)
[2019-08-31] MEDS: Losartan 25 MG TAB PO SCH (07:44)
[2019-08-31] MEDS: Isosorbide Mononitrate (ER) 30 MG TAB PO SCH (07:44)
[2019-08-31] MEDS: Clopidogrel Bisulfate 75 MG TAB PO SCH (07:44)
[2019-08-31] MEDS: levETIRAcetam 500 MG TAB PO SCH ×2 (07:44→21:13)
[2019-08-31] MEDS: Aspirin 81 mg Enteric Coated Tablet PO SCH (07:44)
[2019-08-31] MEDS: Diltiazem HCl SR 60 mg Capsule PO SCH ×2 (08:51→21:12)
--- NOTE | 2019-08-31 09:54 | PRG ---
DATE OF SERVICE: 08/31/2019 SUBJECTIVE: Mary Ellen Maravilla says she continues to feel better. She actually had her hair washed. She wants to walk. She was not seen by Physical Therapy yesterday. OBJECTIVE: VITAL SIGNS: She is afebrile, oximetry is 97% on 2 L, heart rates in the 90s, blood pressure 140/93. LUNGS: Clear. HEART: Regular rhythm. She is in atrial fibrillation. ABDOMEN: Soft. LABORATORY DATA: White count 8.4, hemoglobin 8.5, platelets 179. Electrolytes are normal. BUN 22 and creatinine 0.7 two days ago. IMPRESSION: Chronic obstructive pulmonary disease exacerbation, transiently requiring noninvasive ventilatory support, clinically stable. Job ID: [id number]
--- NOTE | 2019-08-31 16:28 | PDOC.HOSPP ---
- Subjective Encounter Date: 08/31/19 Encounter Time: 16:25 Subjective: f/u for resp failure and COPD exacerbation receiving Rocephin/Doxycycline/ Duonebs/Solumedrol. Feels better overall. - Objective Vital Signs & Weight: Vital Signs (12 hours) Temp Pulse Pulse Pulse Resp BP BP 08/31/19 15:06 98.6 F 08/31/19 14:33 85 22 H 08/31/19 11:40 98 97 148/60 H 134/56 L 08/31/19 11:12 98.6 F 08/31/19 10:15 90 24 H 08/31/19 08:00 08/31/19 07:05 97.5 F L 08/31/19 06:45 83 20 Pulse Ox Pulse Ox Pulse Ox 08/31/19 15:06 08/31/19 14:33 95 08/31/19 11:40 91 L 96 08/31/19 11:12 08/31/19 10:15 91 L 08/31/19 08:00 97 08/31/19 07:05 08/31/19 06:45 97 Weight Admit Weight 138 lb 14.24 oz Weight 138 lb 14.24 oz Most Recent Monitor Data Heart Rate from ECG 89 NIBP 144/78 NIBP BP-Mean 100 Respiration from ECG 20 SpO2 94 I&O: 08/30/19 08/31/19 09/01/19 06:59 06:59 06:59 Intake Total 2320 2251 Output Total 1070 950 Balance 1250 1301 Result Diagrams: 08/29/19 03:40 08/29/19 03:40 EKG Reviewed by me: Yes (Tele - SR) Hospitalist ROS - Medication Medications: Active Medications Generic Name Dose Route Start Last Admin Trade Name Freq PRN Reason Stop Dose Admin Acetaminophen 650 mg 08/25/19 18:27 08/26/19 20:57 Tylenol PO 650 mg Q4H PRN Administration Headache/Fever/Mild Pain (1-3) Albuterol/Ipratropium 3 ml 08/28/19 18:30 08/31/19 14:33 Duoneb NEB 3 ml [id number] DARWIN Administration Aspirin 81 mg 08/26/19 09:00 08/31/19 07:44 Ecotrin PO 81 mg DAILY DARWIN Administration Clopidogrel Bisulfate 75 mg 08/26/19 09:00 08/31/19 07:44 Plavix PO 75 mg DAILY DARWIN Administration Diltiazem HCl 60 mg 08/25/19 21:00 08/31/19 08:51 Cardizem Sr PO 60 mg BID DARWIN Administration Ceftriaxone Sodium 1 gm/ 100 mls @ 200 mls/hr 08/25/19 20:00 08/30/19 20:01 Sodium Chloride IVPB 100 mls Q24HR DARWIN Administration Doxycycline Hyclate 100 mg/ 100 mls @ 100 mls/hr 08/25/19 21:00 08/31/19 08: 51 Sodium Chloride IVPB 100 mls Q12HR DARWIN Administration Isosorbide Mononitrate 30 mg 08/26/19 09:00 08/31/19 07:44 Imdur Er PO 30 mg DAILY DARWIN Administration Levetiracetam 500 mg 08/26/19 21:00 08/31/19 07:44 Keppra PO 500 mg BID DARWIN Administration Losartan Potassium 25 mg 08/26/19 09:00 08/31/19 07:44 Cozaar PO 25 mg DAILY DARWIN Administration Methylprednisolone Sodium Succinate 40 mg 08/28/19 23:59 08/31/19 14:00 Solu-Medrol IVP 40 mg Q6HR DARWIN Administration Ondansetron HCl 4 mg 08/25/19 18:27 08/25/19 21:13 Zofran IVP 4 mg Q6H PRN Administration Nausea/Vomiting Sterile Water 1 ml 08/28/19 18:46 08/29/19 05:35 Bacteriostatic Water FS 1 ml PRN PRN Administration RECONSTITUTION - Exam General Appearance: NAD, awake alert Eye: PERRL, anicteric sclera ENT: normocephalic atraumatic, no oropharyngeal lesions Neck: supple, symmetric, no JVD, no thyromegaly Heart: no gallops, no rubs, normal peripheral pulses, irregular Heart - other findings: S1, S2 Respiratory: normal chest expansion Respiratory - other findings: few coarse sounds, diminished in bases Gastrointestinal: soft, non-tender, non-distended, normal bowel sounds, no palpable masses Extremities: no cyanosis, no clubbing Skin: normal turgor, no lesions Neurological: cranial nerve grossly intact, no new deficit Musculoskeletal: normal tone, generalized weakness Psychiatric: normal affect, A&O x 3 Hosp A/P (1) Acute respiratory failure with hypoxia Code(s): J96.01 - ACUTE RESPIRATORY FAILURE WITH HYPOXIA Status: Acute Plan: Improved and resolving, continue pulmonary supportive mgmt, continue Rocephin/ Doxycycline/Solumedrol (2) COPD (chronic obstructive pulmonary disease) Status: Acute Plan: Continue Duonebs/Solumedrol (3) CAD (coronary artery disease) Code(s): I25.10 - ATHSCL HEART DISEASE OF [place] CORONARY ARTERY W/O ANG PCTRS Status: Chronic Qualifiers: Coronary Disease-Associated Artery/Lesion type: [place] artery [place] vs. transplanted heart: [place] heart Associated angina: without angina Qualified Code(s): I25.10 - Atherosclerotic heart disease of [place] coronary artery without angina pectoris Plan: Continue ASA/Plavix/Nitro (4) Seizure disorder Code(s): G40.909 - EPILEPSY, UNSP, NOT INTRACTABLE, WITHOUT STATUS EPILEPTICUS Status: Chronic Plan: Continue Keppra 500mg BID (5) Atrial fibrillation Code(s): I48.91 - UNSPECIFIED ATRIAL FIBRILLATION Status: Acute - Plan continue antibiotics, PT/OT, manager social work, respiratory therapy, out of bed/ ambulate, DVT proph w/SCDs Stable currently Wean off Solumedrol Continue Rocephin/Doxycycline another 24h OOB with PT Continue O2 support, evaluate for home O2 Likely can d/c in 48h
[2019-08-31] MEDS ORDERED: Furosemide 40 MG TAB PO SCH (20:15)
[2019-08-31] MEDS: cefTRIAXone\\ROCEPHIN 1 GM in Sodium Chloride 0.9% 100 ML IVPB SCH (20:16)
[2019-09-01] MEDS: methylPREDNISolone Sod Succ 40 MG VIAL IVP SCH ×2 (06:06→11:52)
[2019-09-01] MEDS: Diltiazem HCl SR 60 mg Capsule PO SCH (08:17)
[2019-09-01] MEDS: Isosorbide Mononitrate (ER) 30 MG TAB PO SCH (08:17)
[2019-09-01] MEDS: levETIRAcetam 500 MG TAB PO SCH (08:17)
[2019-09-01] MEDS: Clopidogrel Bisulfate 75 MG TAB PO SCH (08:17)
[2019-09-01] MEDS: Aspirin 81 mg Enteric Coated Tablet PO SCH (08:17)
[2019-09-01] MEDS: Losartan 25 MG TAB PO SCH (08:19)
[2019-09-01 11:54] VITALS: BP 153/70
--- NOTE | 2019-09-01 13:48 | DIS ---
DATE OF ADMISSION: 08/25/2019 DATE OF DISCHARGE: 09/01/2019 DISCHARGE DIAGNOSES: 1. Mssgg-au-vdvbtto hypoxic respiratory failure, improved. 2. Chronic obstructive pulmonary disease with exacerbation, improved. 3. Coronary artery disease, chronic and stable. 4. Seizure disorder. 5. Chronic macrocytic anemia. CONSULTATIONS: 1. Dr. Shea with Pulmonology Critical Care Service. 2. Dr. Gray with Neurology Service. PERTINENT LABORATORY AND X-RAY FINDINGS: Ferritin 151. Lactate dehydrogenase 177. Troponin-I negative x2. TSH 1.08. CBC showed a white blood cell count ranged between 8.4 to 25.6, hemoglobin ranged between 8.5 to 11.2. COVID-19, PCR negative on 08/25/2019. HOSPITAL COURSE: The patient was initially admitted after presenting with increasing respiratory distress and hypoxia in the context of chronic hypoxic respiratory failure, on chronic oxygen supplementation at home. The patient presented with chest imaging showing questionable left lower lobe infiltrate. The patient was placed on oxygen supplementation and given IV Rocephin. The patient also received intravenous fluids and ruled out for COVID-19. The patient was also noted with questionable seizure-like activity in the context of chronic seizure disorder. The patient was evaluated by the Neurology Service during her hospital course with recommendations to increase Keppra to 500 mg b.i.d. The patient exhibited no recurrent seizure activity and remained clinically stable neurologically. The patient was also evaluated by the Pulmonology Service during her hospital course and treated for suspected COPD exacerbation, requiring IV Solu-Medrol and bronchodilator therapy with DuoNeb. The patient was clinically stabilized with pulmonary supportive measures and currently at baseline oxygen requirement at 2 L/minute via nasal cannula. I have examined the patient at the time of discharge and discussed followup instructions. The patient verbalized understanding and in agreement, ready for discharge on 09/01/2019. DISCHARGE MEDICATIONS: 1. Aspirin 81 mg p.o. daily. 2. Plavix 75 mg p.o. daily. 3. Diltiazem SR 60 mg p.o. b.i.d. 4. Ferrous sulfate 325 mg p.o. daily. 5. Isosorbide mononitrate 60 mg p.o. daily. 6. Cozaar 25 mg p.o. daily. 7. Protonix 40 mg p.o. b.i.d. 8. Omnicef 300 mg p.o. b.i.d. x5 days. 9. Lasix 20 mg p.o. daily x3 days, followed by 40 mg p.o. daily. 10. Keppra 500 mg p.o. b.i.d. 11. Prednisone 20 mg p.o. b.i.d. x3 days, followed by 30 mg p.o. daily x3 days, followed by 20 mg p.o. daily x3 days, followed by 10 mg p.o. daily x3 days. FOLLOWUP: The patient will follow up with her primary care provider, Dr. Jane Bellamy, within 7 days of discharge. The patient will follow up with Dr. Isaac Shea and to call his office for appointment time and date. CONDITION ON DISCHARGE: Stable. ACTIVITY: Ad-deja. DIET: Heart healthy. CODE STATUS: Full. DISPOSITION: To home, on 09/01/2019. TIME SPENT: Total time preparing and coordinating discharge is 34 minutes. Job ID: [id number]
[2019-09-01 15:50] VITALS: TEMP 98.4
--- NOTE | 2019-09-01 16:04 | PRG ---
DATE OF SERVICE: 09/01/2019 SUBJECTIVE: Mary Ellen Maravilla wants to go home. She looks surprisingly well. Walking with physical therapy and her walker. As expected, she desaturates when she walks. OBJECTIVE: VITAL SIGNS: Heart rate is in the 90s, blood pressures have been stable. She is afebrile. LUNGS: Clear. HEART: Regular rhythm. ABDOMEN: Soft. LABORATORY DATA: White count 8.4, hemoglobin 8.5, platelets 179. Electrolytes were normal. IMPRESSION: Chronic obstructive pulmonary disease exacerbation with transient requirement for noninvasive ventilation, clinically improved. candidate hours. She has trace pedal edema at this point in time. There is no history of left ventricular systolic dysfunction. She does have diastolic dysfunction. She can go back on her diuretics once she is discharged. is all resolved and was related to her respiratory failure. Job ID: [id number]
== END 2019-09-01 17:05 | disposition home or self-care (01) | DRG 871 ==
LOC: ERS 14:41 → T4-B 18:02 → CCU 08-27 11:41 → IMCU/EMU 08-29 18:21
PROVIDERS: ADMIT Internal Medicine; ATTEND Internal Medicine
PROC: 02HV33Z Insertion of Infusion Device into Superior Vena Cava, Percutaneous Approach (ICD-10-PCS; principal; 2019-08-27)
PROC: 5A09457 Assistance with Respiratory Ventilation, 24-96 Consecutive Hours, Continuous Positive Airway Pressure (ICD-10-PCS; 2019-08-28)
DX: A41.9 Sepsis, unspecified organism (principal); J18.9 Pneumonia, unspecified organism; G93.41 Metabolic encephalopathy; J96.21 Acute and chronic respiratory failure with hypoxia; J96.22 Acute and chronic respiratory failure with hypercapnia; E87.2 Acidosis; I47.1 Supraventricular tachycardia; J44.1 Chronic obstructive pulmonary disease with (acute) exacerbation; I25.10 Atherosclerotic heart disease of native coronary artery without angina pectoris; I10 Essential (primary) hypertension; G40.909 Epilepsy, unspecified, not intractable, without status epilepticus; K21.9 Gastro-esophageal reflux disease without esophagitis; D53.9 Nutritional anemia, unspecified; I48.91 Unspecified atrial fibrillation; R74.0 Nonspecific elevation of levels of transaminase and lactic acid dehydrogenase [LDH]; Z95.5 Presence of coronary angioplasty implant and graft; Z79.82 Long term (current) use of aspirin; Z79.02 Long term (current) use of antithrombotics/antiplatelets; Z88.1 Allergy status to other antibiotic agents; Z88.6 Allergy status to analgesic agent; Z88.8 Allergy status to other drugs, medicaments and biological substances; Z90.49 Acquired absence of other specified parts of digestive tract; Z90.710 Acquired absence of both cervix and uterus; Z87.891 Personal history of nicotine dependence
CPT/HCPCS: 36415; 71045; 80048; 80053; 82550; 82728; 82805; 83605; 83615; 83690; 83735; 84443; 84484; 85025; 86140; 87040; 87633; 87804; 93005; 93010; 94660; 96361; 96365; J0692; J0696; J2405; J2920; J3490; J7620; U0001

== ENCOUNTER 2019-11-21 07:23 | Outpatient (CLI) | payer MEDICARE, OTHER ==
--- NOTE | 2019-11-21 10:08 | MRI ---
Exam: Brain MRI without contrast HISTORY: Chronic fatigue. Numbness. COMPARISON: None FINDINGS: Calvarial marrow signal intensity: Appropriate T1 signal Gradient echo sequence: Remote hemosiderin deposition on the posterior right periventricular white ma tter. No acute hemorrhage. Brain parenchyma: No mass, mass effect or midline shift. Brain volume, age-appropriate. Cortical narayanan-white matter differentiation: Preserved Restricted diffusion: Central arterial flow voids are maintained. Absent restricted diffusion White matter signal intensities: T2, FLAIR white matter hyperintensities due to chronic small vessel ischemic changes Sinuses: Adequate aeration of the paranasal sinuses and mastoid air cells. IMPRESSION: 1. Age-appropriate atrophy. 2. Chronic small vessel ischemic changes white matter. 3. Absent restricted diffusion. No acute infarct.
--- NOTE | 2019-11-21 10:22 | MRI ---
MRI LUMBAR SPINE NONCONTRAST: HISTORY: Urinary retention. Chronic fatigue. Numbness. COMPARISON: None. FINDINGS: Slightly heterogeneous T1 marrow signal intensity of the lumbar vertebrae. Lumbar spine vertebral bod y height is maintained. There is no fracture. No significant STIR hyperintensity to suggest vertebral body edema or ligamentous injury. Spondylolisthesis: 2.6 mm of retrolisthesis of L3 upon L4. 5.6 mm of anterolisthesis of L4 upon L5. 4.3 mm of anterolisthesis of L5 upon S1. Appropriate signal intensity of the visualized solid organs and paraspinal muscles. Conus medullaris terminates at the inferior aspect of L1. T12-L1:Adequate disc hydration. No significant central canal stenosis or significant neural foraminal narrowing. L1-L2:Disc desiccation with mild loss of disc space height. Mild ligament flavum thickening and facet hypertrophy. No significant central canal stenosis. Mild bilateral neural foraminal narrowing. L2-L3:Severe loss of disc space height. There is fluid signal intensity involving the disc. Endplates are intact. Broad-based disc bulge, ligament flavum thickening and facet hypertrophy result in mild central canal stenosis. Mild bilateral neural foraminal narrowing. L3-L4:Desiccation with severe loss of disc space height. Broad-based disc bulge, ligamentum flavum th ickening and facet hypertrophy result in mild central canal stenosis. There is fluid in both facet joints. Moderate bilateral neural foraminal narrowing. L4-L5:Desiccation with mild loss of disc space height. Broad-based disc bulge, ligament flavum thicke tres and facet hypertrophy result in moderate central canal stenosis. Mild to moderate right neural foraminal narrowing. Mild left neural foraminal narrowing. L5-S1:Desiccation with mild loss of disc space height. Broad-based disc bulge abuts the thecal sac. M ild ligament flavum thickening and facet hypertrophy. Small amount of fluid in both facet joints. No significant central canal stenosis. Mild right and [id number]-hpnzssnm left neural foraminal narrowin g. IMPRESSION: 1. Multilevel degenerative changes of the lumbar spine as described above. Spondylolisthesis as detai led above. 2. Nonspecific fluid signal intensity of the disc space at L2-L3. Endplates are essentially intact desai ggesting a benign process. Nevertheless clinical correlation is essential for possible early discitis. CODE T Transcribed Date/Time: 11/21/2019 10:58 AM
--- NOTE | 2019-11-21 10:54 | MRI ---
MRI CERVICAL SPINE WITHOUT CONTRAST: Date: 11/21/2019 INDICATION: Urinary retention and numbness. There are no comparison studies of the cervical spine. FINDINGS: There is an anterolisthesis at C2-3 measuring 4-5 mm. There is loss of disc space with interbody fusi on and prominent degenerative hypertrophic changes involving C3, C4, and C5 vertebra. These vertebra show anterior wedging with anterior osteophytes, loss of disc space, and evidence of partial fusion. There is prominent posterior spondylosis at C3-4 which impinges on the cord. Mild spondylosis at C4-5 abuts the cord. Loss of disc space at C5-6. Loss of height of the C6 vertebra. There is an anterolisthesis at C6-7 me asured at 4-5 mm. Posterior spondylosis at C6-7 abuts the anterior cord. There is evidence of foraminal stenosis throughout the cervical spine due to facet and uncinate hyper trophy. Consider correlation with CT to better define the osseous changes and hypertrophy. The cervical cord signal appears normally preserved. IMPRESSION: 1. Severe degenerative changes of the cervical spine. Loss of disc space with evidence of fusion at C3, C4, and C5 as described above. 2. There is an anterolisthesis at C2-3 and an anterolisthesis at C6-7 as described. 3. Central canal stenosis with cord impingement at C3, C4, C5, and C6-7 levels. 4. Evidence of foraminal stenosis due to facet and uncinate hypertrophy throughout the cervical spin e. Consider further evaluation with CT to better define the osseous hypertrophy and abnormalities. POS: ALLISON
== END 2019-11-21 07:24 | disposition home or self-care (01) ==
LOC: SCSMRI 07:23
PROVIDERS: ATTEND Neurological Surgery
DX: R20.0 Anesthesia of skin (principal); R33.9 Retention of urine, unspecified; R53.82 Chronic fatigue, unspecified; G40.909 Epilepsy, unspecified, not intractable, without status epilepticus; M47.812 Spondylosis without myelopathy or radiculopathy, cervical region; M43.22 Fusion of spine, cervical region; M43.12 Spondylolisthesis, cervical region; M48.02 Spinal stenosis, cervical region; M50.321 Other cervical disc degeneration at C4-C5 level; G93.89 Other specified disorders of brain
CPT/HCPCS: 36415; 70551; 72141; 72148; 80185

== ENCOUNTER 2019-11-29 15:31 | Observation (INO) | payer MEDICARE ==
[~2019-11-29 15:31] MED LIST: Iopamidol-370 76% 500 ML 1 ML ONE
--- NOTE | 2019-11-29 16:11 | RAD ---
Exam: Chest one view HISTORY:Weakness. Comparison: 08/25/2019, 09/11/2019 FINDINGS: Cardiac silhouette: Normal Aorta: Unremarkable Pulmonary vessels: Normal Costophrenic angles: Clear LUNGS: Hyperinflated. Increased opacity in the right upper lobe. Pneumothorax: None Osseous abnormalities: None IMPRESSION: 1. COPD. Hyperinflation. 2. Increased opacity in the right upper lobe. Better interrogation with chest CT
[2019-11-29 16:26] LABS: #Lymphocytes 1.8 thou/uL (1.20-3.40); #Monocytes 0.5 thou/uL (0.11-0.59); #Neutrophils 3.8 thou/uL (1.40-6.50); %Basophils 0.6 % (0.0-1.0); %Eosinophils 0.7 % (0.0-10.0); %Lymphocytes 28.6 % (21.0-51.0); %Monocytes 7.3 % (0.0-10.0); %Neutrophils 62.8 % (42.0-75.0); Hemoglobin 11.2 g/dL (12.0-16.0); Mean Corpuscular HGB CONC 31.8 g/dL (32.0-36.0); Mean Corpuscular Hemoglobin 30.9 pg (27.0-31.0); Mean Corpuscular Volume 97.2 fL (78.0-98.0); Mean Platelet Volume 8.4 fL (7.4-10.4); Platelet Count 202 thou/uL (130-400); RBC Distribution Width 11.8 % (11.5-14.5); Red Blood Cell (RBC) Count 3.64 mill/uL (4.20-5.40); White Blood Cell (WBC) Count 6.1 thou/uL (4.8-10.8)
[2019-11-29 16:40] LABS: BUN (Urea Nitrogen) 7 mg/dL (9.8-20.1); Calc. Creatinine Clearance 0 mL/min (70-130); Estimated GFR-MDRD 83
[2019-11-29 16:41] LABS: ALT (SGPT) 11 U/L (8-55); AST (SGOT) 11 U/L (5-34); Albumin 3.9 g/dL (3.4-4.8); Alkaline Phosphatase 101 U/L (40-110); Bilirubin, Total 0.2 mg/dL (0.2-1.2); Globulin 2.5 g/dL (2.4-3.5); Glucose 115 mg/dL (83-110); Protein, Total 6.4 g/dL (6.0-8.3)
[2019-11-29 16:56] LABS: CK (CPK) 16 U/L (29-168); Lipase 13 U/L (8-78)
[2019-11-29 17:03] LABS: Chloride 91 mmol/L (98-107); Sodium 137 mmol/L (136-145)
[2019-11-29 17:06] LABS: Anion Gap 16 mmol/L (10-20); Carbon Dioxide 34 mmol/L (23-31)
--- NOTE | 2019-11-29 17:58 | CT ---
CT Brain WO Con: 11/29/2019 4:35 PM CLINICAL HISTORY: History of weakness and nausea. IMAGING TECHNIQUE: Multiple CT images were obtained of the brain without IV contrast. COMPARISON: MR the brain dated November 21, 2019 FINDINGS: BRAIN: Evidence of acute infarct: None. Evidence of chronic ischemic change:There is stable moderate chronic small vessel white matter ischem ic change Evidence of intracranial hemorrhage: None. Evidence of midline shift: Third ventricle and septum pellucidum are midline. Ventricles: Normal. No hydrocephalus. SKULL: Intact. VISUALIZED PARANASAL SINUSES: Clear. MASTOID AIR CELLS: Clear. EXTRACRANIAL SOFT TISSUES: Normal. IMPRESSION: No acute intracranial abnormality.
--- NOTE | 2019-11-29 18:03 | CT ---
CTA Angio Chest W WO Con 11/29/2019 4:48 PM Indication: 79-year-old female with weakness Technique: Multiple CTA images were obtained of the thorax with IV contrast. 3-D rendering: MIP xavier nstructed images were created and reviewed. Comparison: No relevant prior studies available. Findings: Pulmonary arteries: No central or segmental pulmonary embolus is evident. Heart and Aorta: There are coronary artery and thoracic aortic calcifications. Mediastinum:There is a moderate-sized hiatal hernia. No pathologically enlarged lymph nodes are evide nt. Lungs:There is moderate scattered emphysema and pleural parenchymal scarring involving the lung apice s. There are scattered sub-4 mm pulmonary nodule seen within both lungs. Pleural space: Clear. Upper Abdomen: There are calcified granuloma within the spleen. The gallbladder is not definitely se en and may be surgically absent. Adrenal glands are normal appearing. Osseous Structures: No acute osseous abnormality. There is scattered degenerative and osteoarthritic change present. Soft tissues:No abnormality. Other findings:None. Impression: 1. No central or segmental pulmonary embolus. 2. Scattered sub-4 mm pulmonary nodules within both lungs are nonspecific and may reflect inflammato ry nodules; however, metastatic disease is not excluded. Short-term CT follow-up in 6-8 weeks is recommended. 3. Moderate emphysema 4. Findings of prior granulomatous disease
[2019-11-29 18:30] LABS: Bacteria/HPF None Seen HPF (None Seen); Bilirubin Negative (Negative); Blood, Urine Negative (Negative); Clarity Clear (Clear); Glucose, Urine (Dipstick) Normal (Negative); Ketone, Urine Negative (Negative); Leukocyte 500 Leu/uL (Negative); Nitrite Negative (Negative); Protein, Urine (Dipstick) 10 mg/dL (Neg-Trace); Specific Gravity, Urine 1.031 (1.002-1.036); Squamous Epithelial 0-3 HPF (0-3); Urobilinogen Normal mg/dL (Less than 2)
[2019-11-29] MEDS ORDERED: cefTRIAXone\\ROCEPHIN 1 GM VIAL ONE (19:15)
[2019-11-29] MEDS ORDERED: Ondansetron PF 4 MG/2 ML Vial IVP PRN (21:32)
[2019-11-29] MEDS ORDERED: Sodium Chloride 0.9% 1,000 ML IV SCH (21:32)
[2019-11-29] MEDS ORDERED: Ondansetron ODT 4 MG TAB SL PRN (21:32)
[2019-11-29 21:38] VITALS: BMI 24.1
[2019-11-30] MEDS ORDERED: Sodium Chloride 0.9% 1,000 ML IV SCH (00:33)
[2019-11-30] MEDS ORDERED: Acetaminophen 325 MG TAB PO PRN (03:08)
[2019-11-30] MEDS ORDERED: Acetaminophen 650 MG Suppository PR PRN (03:08)
--- NOTE | 2019-11-30 05:14 | HP ---
TIME OF ASSESSMENT: 199 CHIEF COMPLAINT: Uncontrollable arm movements and weakness. HISTORY OF PRESENT ILLNESS: Ms. Maravilla is an 79-year-old woman, who was brought into the emergency department by her daughter due to weakness and uncontrollable extremity movement. Difficulty obtaining history from patient as she states she has memory problems, but she is able to provide some information. Additional information provided by her daughter via phone. Patient states that she has been seen by Dr. Castaneda due to uncontrollable extremity movements, felt to be due to seizure activity. She was started on Keppra and states her symptoms improved, however, began to worsen and therefore medications were changed. Patient does not recall when or what medications were started. She states she was doing well and these abnormal movements started immediately after undergoing a cardiac stent placement in July 2019. She states she lives with her daughter and is usually able to walk independently. States she has been weak for the last few days, but unsure exactly how long. Patient is aware of current month and year. She also recalls being told she had a urine infection while in the emergency department. At present, patient denies having any pain. Denies having any recent fevers, chills, or sweats. Does report having these uncontrollable movements that cause difficulty at times with holding objects in her hands. Further information obtained from her daughter following assessment. She states the patient has in fact had no issues with seizure-like activity or abnormal extremity movements until immediately after her cardiac procedure in July. She confirms that the patient has been evaluated by Dr. Castaneda and the reason Keppra stopped was because her symptoms began to worsen. On November 12, she was started on Dilantin and more recently was started on carbamazepine. Her symptoms have continued to worsen and in the last 3 days, she has been unable to walk. She also has had difficulties with controlling her upper extremities to the point that she will sometimes injure herself or spill warm drinks due to the twitching. She has not experienced any tonic-clonic type seizures or has had loss of consciousness or collapse. Patient is seen by Dr. Childers and underwent multiple MRIs, for which they have been awaiting results. Daughter states that they contacted both Dr. Castaneda and Dr. Childers yesterday evening and both advised that she come in to the emergency department. EMERGENCY DEPARTMENT COURSE: While in the emergency department, the patient underwent laboratory studies, which showed a white count of 6.1, hemoglobin 11.2 , hematocrit 34.3, and platelets 202. BUN 7, creatinine 0.68, GFR 83, and glucose 115. LFTs unremarkable. BNP of 73.4. Troponin negative. Lactic acid normal at 0.8. She had a urinalysis done demonstrating 500 leukocytes, 4 to 6 red blood cells, 7 to 10 white blood cells, 4 to 6 hyaline casts, negative for bacteria, negative for nitrites. She was started on IV antibiotics for presumed underlying urinary tract infection. She received 1 g of Rocephin. Was also given 1 L of normal saline. A CT of the head was done showing no acute intracranial abnormality. Chest x-ray showed COPD, hyperinflation with increased opacity in the right upper lobe. Further imaging with a CT of the chest was recommended. She had a CT angiogram of the chest that showed no evidence of PE. There were scattered sub 4 mm lung nodules within both lungs, felt to reflect inflammatory nodules; however, metastatic disease could not be excluded. Therefore, short-term CT followup within 6 to 8 weeks was advised. Moderate emphysematous changes present as well as findings of prior granulomatous disease. Patient admitted for UTI and seizure-like activity. Of note, patient does have known history of COPD and uses oxygen at home. Per patient and daughter, she has had no changes with her chronic shortness of breath. Patient was last admitted from August 25, 2019, to September 01, 2019, and treated for acute on chronic hypoxic respiratory failure, CAD, seizure disorder, and COPD exacerbation that did improve. At that time, she was said to have no seizure activity and stable on Keppra 500 mg b.i.d. REVIEW OF SYSTEMS: According to daughter, the patient has complained of issues with urinary incontinence, stating that it is due to not getting to the bathroom in time. She has also been experiencing saddle anesthesia, though the patient did not recall this during assessment. She has complained of numbness in the groin and lower back. No stool incontinence. PAST MEDICAL HISTORY: 1. Palpitations. 2. CAD. 3. COPD. 4. Chronic use of home O2. 5. Seizure disorder. PAST SURGICAL HISTORY: 1. Right knee surgery. 2. Cardiac ablation. 3. Coronary artery stent. 4. Cholecystectomy. 5. Hysterectomy. SOCIAL HISTORY: Patient lives with her daughter. She usually walks independently, but more recently has been unable to walk on her own. Denies any alcohol consumption or drug use. She is a former smoker. ALLERGIES: 1. AZITHROMYCIN. 2. CLARITIN. 3. CONTAC-D COLD. 4. LEVAQUIN. 5. LORATADINE. 6. MORPHINE. 7. SUDAFED. CURRENT MEDICATIONS: 1. Aspirin. 2. Plavix. 3. Ferrous sulfate. 4. Lasix. 5. Albuterol. 6. Imdur. 7. Losartan. 8. Protonix. 9. Dilantin. 10. Carbamazepine. PHYSICAL EXAMINATION: GENERAL: Patient appears thin and frail, who is in no acute distress. Occasional twitching noted on examination. VITAL SIGNS: Temperature 98, pulse 80, respirations 16, O2 saturation 94% on 3 L via nasal cannula, and blood pressure 107/68. HEENT: Normocephalic and atraumatic. Pupils are equal, round, reactive to light. Extraocular movements intact. Oropharynx is clear, however, notable for dry oral mucosa. NECK: Supple. LUNGS: Notable for decreased breath sounds at the bilateral bases and diffuse coarse lung sounds. No wheezing or crackles. CARDIAC: Regular rate and rhythm. ABDOMEN: Soft, did appear to have some suprapubic discomfort on palpation. Reexamined after Crabtree catheter placement and without any suprapubic discomfort. Crabtree catheter placed after a postvoid bladder scan demonstrated urine retention. Output was approximately 100 mL. EXTREMITIES: No lower leg swelling or edema. Occasional twitching noted in the right lower extremity, eventually resolved during examination. Power 5/5 in all limbs. SKIN: Warm and dry. NEUROLOGIC: Alert and oriented to person, place, and month/year. No lower extremity weakness or numbness. INVESTIGATIONS: As mentioned above in HPI. IMAGING DATA: By Dr. Childers, including the followin. MRI of the lumbar spine showed multilevel degenerative changes with spondylolisthesis. Nonspecific fluid signal intensity of the disk space at L2- L3. Early diskitis a possibility. 2. MRI cervical spine without contrast on November 21, 2019. Severe degenerative changes of the cervical spine, loss of disk space with evidence of fusion at C3- C4 and C5. Anterolisthesis at C2-C3 and anterolisthesis at C6-C7. Central canal stenosis with cord impingement at C3, C4, C5, C6, and C7 levels. Evidence of foraminal stenosis due to facet and uncinate hypertrophy throughout the cervical spine. 3. MRI of the brain done on November 21, 2019. Age-appropriate atrophy. Chronic small-vessel ischemic changes of white matter. No acute infarct. IMPRESSION AND PLAN: Ms. Maravilla is an 79-year-old woman presenting with abnormal extremity movement and lower extremity weakness, who has been admitted for generalized weakness, slight dehydration, and possible urinary tract infection. We will continue to manage the followin. Lower extremity weakness. The patient with good range of motion and strength on examination. There is no lower extremity numbness. She has undergone recent MRI of the lumbar spine. Unclear if underlying neuro abnormality causing her symptoms versus underlying infection. PT and OT have been consulted. Patient did have abnormalities on the MRI of the cervical spine, particularly with canal stenosis and cord impingement in the cervical spine. Patient has been placed to Neurosurgery. Per daughter, she has had saddle paresthesia/anesthesia and has urine retention. Has likely been having issues with urine retention for several days. She has required pads at home due to likely overflow incontinence. Urinalysis was done in the emergency department, but did not show any nitrites or bacteria. We will hold any further antibiotics and await urine culture results. Crabtree catheter has been placed with approximately 100 mL of urine output after Crabtree placement. Patient did express immediate relief with discomfort after Crabtree placement. 2. Seizure disorder. Patient was previously treated with Keppra due to uncontrollable upper and lower extremity movements. Apparently, had initial relief but symptoms have worsened and therefore medications have been adjusted. She was taken off Keppra and transitioned to carbamazepine and Dilantin. We will check Dilantin level. Consult has been placed to Dr. Castaneda for further management. Her abnormal extremity movements could be associated with abnormal MRI findings. 3. Chronic obstructive pulmonary disease. Patient is on home O2. No worsening in her breathing from baseline. Continue monitor with home O2. 4. History of congestive heart failure. We will continue gentle hydration to avoid fluid overload. We will resume Lasix which she takes daily, 20 mg p.o. 5. Gastrointestinal prophylaxis with famotidine. 6. Deep venous thrombosis prophylaxis with mechanical SCDs. 7. Code status. Full. Surrogate decision maker is her daughter, Malena Watt. Patient's case discussed with attending, who agrees with plan as above. Job ID: [id number] [facility]
[2019-11-30 06:16] LABS: #Eosinphils 0.1 thou/uL (0.0-0.7); #Lymphocytes 1.4 thou/uL (1.20-3.40); #Monocytes 0.5 thou/uL (0.11-0.59); #Neutrophils 2.6 thou/uL (1.40-6.50); %Basophils 0.9 % (0.0-1.0); %Eosinophils 1.3 % (0.0-10.0); %Monocytes 10.4 % (0.0-10.0); %Neutrophils 57.4 % (42.0-75.0); Hemoglobin 11.7 g/dL (12.0-16.0); Mean Corpuscular HGB CONC 31.3 g/dL (32.0-36.0); Mean Corpuscular Hemoglobin 30.5 pg (27.0-31.0); Mean Corpuscular Volume 97.6 fL (78.0-98.0); Mean Platelet Volume 8.8 fL (7.4-10.4); Platelet Count 180 thou/uL (130-400); RBC Distribution Width 11.8 % (11.5-14.5); Red Blood Cell (RBC) Count 3.83 mill/uL (4.20-5.40); White Blood Cell (WBC) Count 4.6 thou/uL (4.8-10.8)
[2019-11-30 06:48] LABS: BUN (Urea Nitrogen) 6 mg/dL (9.8-20.1); Calc. Creatinine Clearance 71 mL/min (70-130); Calcium 8.9 mg/dL (7.8-10.44); Estimated GFR-MDRD Greater than 90; Glucose 91 mg/dL (83-110)
[2019-11-30 06:57] LABS: Anion Gap 14 mmol/L (10-20); Carbon Dioxide 35 mmol/L (23-31); Chloride 96 mmol/L (98-107); Potassium 3.8 mmol/L (3.5-5.1); Sodium 141 mmol/L (136-145)
[2019-11-30] MEDS: Losartan 25 MG TAB PO SCH (10:01)
[2019-11-30] MEDS: Ferrous Sulfate 325 MG TAB PO SCH (10:01)
[2019-11-30] MEDS: Clopidogrel Bisulfate 75 MG TAB PO SCH (10:02)
[2019-11-30] MEDS: carBAMazepine 200 MG TAB PO SCH ×2 (10:02→21:37)
[2019-11-30] MEDS: Aspirin Chewable 81 MG TAB PO SCH (10:02)
[2019-11-30] MEDS: Furosemide 40 MG TAB PO SCH (10:02)
--- NOTE | 2019-11-30 12:54 | CON ---
NEUROLOGY CONSULTATION DATE OF CONSULTATION: 11/30/2019 REASON FOR CONSULTATION: Uncontrollable movements and weakness. HISTORY OF PRESENT ILLNESS: Ms. Maravilla is an 79-year-old female with history significant for coronary artery disease, COPD, status post coronary artery stenting, was brought by her daughter because of generalized weakness and uncontrollable upper extremity movements. According to the patient, she was seen by Dr. Castaneda due to abnormal upper extremity movements. She was initially started on Keppra because there was a concern about seizure activity, which worsen the movements, so the Keppra was discontinued and she was started on Dilantin and Tegretol, which she has been taking for the last couple of weeks. According to the patient, the movements have started after she underwent cardiac stent placement in 07/2019. The patient denies any focal weakness, focal paresthesias, nausea, vomiting, headache, chest pain, dizziness, vertigo, blurred vision, loss of vision, or problems with swallowing associated with the episode. There is no documented evidence of generalized tonic-clonic seizure activity, altered mental status, confusion, urinary or fecal incontinence associated with these abnormal upper extremity movements. She has been followed by Dr. Childers. She has extensive imaging done, which showed severe degenerative changes in the cervical spine; however, MRI of the brain did not show any acute bleed or infarct. Currently, the movements are so bad that she is unable to feed herself. She was advised by Dr. Childers and Dr. Castaneda to come to the emergency room for further evaluation. In the emergency room, CT head was done, which did not reveal any acute intracranial pathology. She was found to have urinary tract infection and admitted for further management. REVIEW OF SYSTEMS: All 14-point systems were reviewed and were negative except those negative and positive mentioned in the HPI. PAST MEDICAL HISTORY: 1. Coronary artery disease. 2. COPD. 3. Abnormal movements of the upper extremities. 4. Chronic home use of oxygen. PAST SURGICAL HISTORY: 1. Right knee surgery. 2. Cardiac ablation. 3. Coronary artery stent placement in 07/2019. 4. Cholecystectomy. 5. Hysterectomy. SOCIAL HISTORY: The patient lives with her daughter. She is independent at home, but unable to walk because of generalized weakness. The patient denies alcohol or illegal drug use. She is a former smoker. ALLERGIES: AZITHROMYCIN, CLARITIN, CONTAC-D COLD, LEVAQUIN, LORATADINE, MORPHINE, AND SUDAFED. HOME MEDICATIONS: 1. Aspirin. 2. Plavix. 3. Ferrous sulfate. 4. Lasix. 5. Albuterol. 6. Imdur. 7. Losartan. 8. Protonix. 9. Dilantin. 10. Carbamazepine. PHYSICAL EXAMINATION: 126/54 18 74 GENERAL: Alert and awake female, in mild distress. CVS: Regular rate and rhythm. CHEST: Clear. ABDOMEN: Soft. NEUROLOGIC: Mental status; the patient is alert and oriented to person, place, and time. Speech is clear. Recent and remote memory intact. Cranial nerves 2 through 12 intact. Motor; muscle tone is normal, bulk is decreased, abnormal movements of both upper extremities seen. Cerebellar; unable to perform secondary to frequent jerks of the upper extremities. Sensory intact. Gait deferred due to the patient's safety reasons. DATA REVIEWED: I reviewed the MRI of the of the brain, which was negative for acute intracranial process. I also reviewed the head CT, which was negative. MRI of the cervical spine showed severe degenerative changes of the cervical spine. MRI of the lumbar spine showed multilevel degenerative changes with spondylolisthesis. ASSESSMENT AND PLAN: Ms. Maravilla is an 79-year-old woman who presented with abnormal upper extremity body movements and generalized weakness. Generalized weakness may be multifactorial secondary to infectious etiologiy versus degenerative spine disease. I would recommend EEG to capture these spells for definitive diagnosis. Observe seizure precautions. Ativan 2 mg IV for seizure greater than 2 minutes. Continue home medications. Consider Neurosurgery input regarding severe degenerative changes on the imaging. Neuro checks every 4 hours. Continue medical management by primary team. We will continue to follow. Thank you for the consult. Job ID: [id number] [facility]
[2019-11-30 13:24] LABS: #Eosinphils 0.1 thou/uL (0.0-0.7); #Lymphocytes 1.4 thou/uL (1.20-3.40); #Monocytes 0.6 thou/uL (0.11-0.59); #Neutrophils 3.9 thou/uL (1.40-6.50); %Basophils 0.4 % (0.0-1.0); %Eosinophils 1.2 % (0.0-10.0); %Lymphocytes 23.1 % (21.0-51.0); %Neutrophils 65.4 % (42.0-75.0); Hemoglobin 10.4 g/dL (12.0-16.0); Mean Corpuscular HGB CONC 31.7 g/dL (32.0-36.0); Mean Corpuscular Hemoglobin 31.2 pg (27.0-31.0); Mean Corpuscular Volume 98.7 fL (78.0-98.0); Mean Platelet Volume 8.8 fL (7.4-10.4); Platelet Count 170 thou/uL (130-400); Red Blood Cell (RBC) Count 3.32 mill/uL (4.20-5.40)
[2019-11-30 13:52] LABS: Anion Gap 9 mmol/L (10-20); BUN (Urea Nitrogen) 7 mg/dL (9.8-20.1); Calc. Creatinine Clearance 74 mL/min (70-130); Carbon Dioxide 34 mmol/L (23-31); Chloride 99 mmol/L (98-107); Estimated GFR-MDRD Greater than 90; Glucose 97 mg/dL (83-110); Potassium 3.9 mmol/L (3.5-5.1); Sodium 138 mmol/L (136-145)
--- NOTE | 2019-11-30 15:04 | EEG ---
DATE OF SERVICE: 11/30/2019 ATTENDING PHYSICIAN: Esmer Mosquera MD This EEG was performed using 24-channel [employer] video digital EEG machine with 24 disk electrodes. This was an extended 2-hour 4 minutes of inpatient video EEG recording. Digital analysis of the EEG was done for spike and seizure detection, which revealed no abnormalities. BACKGROUND: The posterior background rhythm was not observed. HYPERVENTILATION: Not performed. PHOTIC STIMULATION: No significant response seen with photic stimulation. SLEEP: Drowsiness and sleep are observed. EEG DIAGNOSES: 1. Intermittent irregular theta activity seen during the recording. 2. Absence of posterior background rhythm. SPELLS: Muscle jerks of both upper extremities captured during this recording, not associated with any abnormal EEG correlate. CLINICAL INTERPRETATION: This EEG is consistent with moderate generalized nonspecific cerebral dysfunction. No ictal or interictal epileptiform abnormalities seen during the recording. Job ID: [id number] [facility]
[2019-12-01 05:44] LABS: #Lymphocytes 1.8 thou/uL (1.20-3.40); #Monocytes 0.6 thou/uL (0.11-0.59); #Neutrophils 3.9 thou/uL (1.40-6.50); %Basophils 0.6 % (0.0-1.0); %Eosinophils 0.8 % (0.0-10.0); %Lymphocytes 28.2 % (21.0-51.0); %Monocytes 8.8 % (0.0-10.0); %Neutrophils 61.6 % (42.0-75.0); Hemoglobin 11.3 g/dL (12.0-16.0); Mean Corpuscular HGB CONC 30.4 g/dL (32.0-36.0); Mean Corpuscular Hemoglobin 29.7 pg (27.0-31.0); Mean Corpuscular Volume 97.9 fL (78.0-98.0); Mean Platelet Volume 8.5 fL (7.4-10.4); Platelet Count 163 thou/uL (130-400); RBC Distribution Width 11.7 % (11.5-14.5); Red Blood Cell (RBC) Count 3.79 mill/uL (4.20-5.40); White Blood Cell (WBC) Count 6.3 thou/uL (4.8-10.8)
[2019-12-01 06:04] LABS: Anion Gap 11 mmol/L (10-20); BUN (Urea Nitrogen) 7 mg/dL (9.8-20.1); Calc. Creatinine Clearance 73 mL/min (70-130); Calcium 8.9 mg/dL (7.8-10.44); Carbon Dioxide 36 mmol/L (23-31); Chloride 96 mmol/L (98-107); Estimated GFR-MDRD Greater than 90; Glucose 77 mg/dL (83-110); Magnesium 1.8 mg/dL (1.6-2.6); Potassium 3.6 mmol/L (3.5-5.1); Sodium 139 mmol/L (136-145)
[2019-12-01] MEDS: Aspirin Chewable 81 MG TAB PO SCH (08:38)
[2019-12-01] MEDS: Losartan 25 MG TAB PO SCH (08:38)
[2019-12-01] MEDS: Furosemide 40 MG TAB PO SCH (08:38)
[2019-12-01] MEDS: Clopidogrel Bisulfate 75 MG TAB PO SCH (08:38)
[2019-12-01] MEDS: carBAMazepine 200 MG TAB PO SCH ×2 (08:38→20:20)
[2019-12-01] MEDS: Ferrous Sulfate 325 MG TAB PO SCH (08:38)
--- NOTE | 2019-12-01 11:46 | PDOC.HOSPP ---
- Subjective Encounter Date: 12/01/19 Subjective: Patient seen examined bedside this morning resting in bed she appears more awake today still complaining of generalized weakness but no chest pain shortness of breath nausea or vomiting this morning the nurse reported that patient was having cough taken her medications and speech and swallow has been consulted patient currently n.p.o. - Objective Vital Signs & Weight: Vital Signs (12 hours) Temp Pulse Resp BP Pulse Ox 12/01/19 11:09 98.1 F 85 20 113/52 L 96 12/01/19 07:13 98.6 F 82 20 131/82 96 12/01/19 04:00 97.9 F 89 18 128/66 98 12/01/19 00:00 98.1 F 73 18 112/64 99 Weight Weight 132 lb 1 oz I&O: 11/30/19 12/01/19 12/02/19 06:59 06:59 06:59 Intake Total 120 Output Total 1100 Balance -980 Result Diagrams: 12/01/19 05:30 12/01/19 05:30 Hospitalist ROS - Medication Medications: Active Medications Generic Name Dose Route Start Last Admin Trade Name Pauline PRN Reason Stop Dose Admin Aspirin 81 mg 11/30/19 09:00 12/01/19 08:38 Aspirin Chewable PO 81 mg DAILY DARWIN Administration Carbamazepine 200 mg 11/30/19 09:00 12/01/19 08:38 Tegretol PO 200 mg BID DARWIN Administration Clopidogrel Bisulfate 75 mg 11/30/19 09:00 12/01/19 08:38 Plavix PO 75 mg DAILY DARWIN Administration Ferrous Sulfate 325 mg 11/30/19 09:00 12/01/19 08:38 Feosol PO 325 mg DAILY DARWIN Administration Furosemide 40 mg 11/30/19 09:00 12/01/19 08:38 Lasix PO 40 mg DAILY DARWIN Administration Isosorbide Mononitrate 60 mg 11/30/19 09:00 12/01/19 08:38 Imdur PO 60 mg DAILY DARWIN Administration Losartan Potassium 25 mg 11/30/19 09:00 12/01/19 08:38 Cozaar PO 25 mg DAILY DARWIN Administration Pantoprazole Sodium 40 mg 11/30/19 09:00 12/01/19 08:38 Protonix PO 40 mg DAILY DARWIN Administration Phenytoin Sodium 400 mg 11/30/19 21:00 11/30/19 21:37 Dilantin Er PO 400 mg Q2D@2100 [facility] Administration - Exam General Appearance: NAD, awake alert Eye: PERRL ENT: normocephalic atraumatic Heart: RRR Respiratory: CTAB Gastrointestinal: soft Neurological - other findings: Generalized weakness Hosp A/P (1) Weakness Code(s): R53.1 - WEAKNESS Status: Acute (2) CAD (coronary artery disease) Code(s): I25.10 - ATHSCL HEART DISEASE OF [place] CORONARY ARTERY W/O ANG PCTRS Status: Chronic Qualifiers: (3) Seizure disorder Code(s): G40.909 - EPILEPSY, UNSP, NOT INTRACTABLE, WITHOUT STATUS EPILEPTICUS Status: Chronic (4) UTI (urinary tract infection) Status: Acute - Plan Appreciate neurology input EEG reviewed patient with generalized weakness neurosurgery consulted Continue PT OT evaluation and treatment during hospital stay Patient remained afebrile with no signs of focal infection will monitor for now Speech and swallow evaluated for dysphagia follow further recommendations Case management consult for possible placement Continue the rest of her home medications DVT prophylaxis Patient is full code Disposition pending clinical improvement possible in the next 24 to 48 hours patient might need postacute placement
--- NOTE | 2019-12-01 12:05 | PDOC.HOSPP ---
- Subjective Encounter Date: 12/01/19 Subjective: NEUROLOGY PROGRESS NOTE No acute events overnight. Positive tremors in the UE. Followed commands intermittently. - Objective Vital Signs & Weight: Vital Signs (12 hours) Temp Pulse Resp BP Pulse Ox 12/01/19 11:09 98.1 F 85 20 113/52 L 96 12/01/19 07:13 98.6 F 82 20 131/82 96 12/01/19 04:00 97.9 F 89 18 128/66 98 Weight Weight 132 lb 1 oz I&O: 11/30/19 12/01/19 12/02/19 06:59 06:59 06:59 Intake Total 120 Output Total 1100 Balance -980 Result Diagrams: 12/01/19 05:30 12/01/19 05:30 Radiology Reviewed by me: Yes EKG Reviewed by me: Yes Hospitalist ROS - Review of Systems ROS unobtainable: due to mental status - Medication Medications: Active Medications Generic Name Dose Route Start Last Admin Trade Name Freq PRN Reason Stop Dose Admin Aspirin 81 mg 11/30/19 09:00 12/01/19 08:38 Aspirin Chewable PO 81 mg DAILY DARWIN Administration Carbamazepine 200 mg 11/30/19 09:00 12/01/19 08:38 Tegretol PO 200 mg BID DARWIN Administration Clopidogrel Bisulfate 75 mg 11/30/19 09:00 12/01/19 08:38 Plavix PO 75 mg DAILY DARWIN Administration Ferrous Sulfate 325 mg 11/30/19 09:00 12/01/19 08:38 Feosol PO 325 mg DAILY DARWIN Administration Furosemide 40 mg 11/30/19 09:00 12/01/19 08:38 Lasix PO 40 mg DAILY DARWIN Administration Isosorbide Mononitrate 60 mg 11/30/19 09:00 12/01/19 08:38 Imdur PO 60 mg DAILY DARWIN Administration Losartan Potassium 25 mg 11/30/19 09:00 12/01/19 08:38 Cozaar PO 25 mg DAILY DARWIN Administration Pantoprazole Sodium 40 mg 11/30/19 09:00 12/01/19 08:38 Protonix PO 40 mg DAILY DARWIN Administration Phenytoin Sodium 400 mg 11/30/19 21:00 11/30/19 21:37 Dilantin Er PO 400 mg Q2D@2100 DARWIN Administration - Exam General Appearance: awake alert Eye: PERRL ENT: normocephalic atraumatic Neck: supple Heart: RRR Respiratory: CTAB Gastrointestinal: soft Extremities: no cyanosis Skin: normal turgor Neurological: no focal deficits, no new deficit Musculoskeletal: generalized weakness Psychiatric: somnolent Hosp A/P (1) Tremors of nervous system Code(s): R25.1 - TREMOR, UNSPECIFIED Status: Acute (2) Atrial fibrillation Code(s): I48.91 - UNSPECIFIED ATRIAL FIBRILLATION Status: Acute (3) COPD (chronic obstructive pulmonary disease) Status: Acute (4) Wide QRS ventricular tachycardia Code(s): I47.2 - VENTRICULAR TACHYCARDIA Status: Acute (5) Seizure disorder Code(s): G40.909 - EPILEPSY, UNSP, NOT INTRACTABLE, WITHOUT STATUS EPILEPTICUS Status: Chronic (6) CAD (coronary artery disease) Code(s): I25.10 - ATHSCL HEART DISEASE OF [place] CORONARY ARTERY W/O ANG PCTRS Status: Chronic Qualifiers: - Plan plan discussed w/ family, PT/OT, speech therapy, DVT proph w/SCDs 79 year old female consulted for worsening movements of the upper extremities. EEG reviewed and was negative for ongoing seizure activity. MRI Brain was negative for acute changes Continue home medications. Neurochecks every 4 hours. Consider neurosurgery input regarding imaging findings. Continue PT/OT Patient remained afebrile with no signs of focal infection will monitor for now Speech evaluation for dysphagia Continue home medications Continue medical management per primary team. Plan discussed with the daughter and the nursing staff. Seizure medications were started recently so too soon to make any changes. Dilantin level 9.9. Check free phenytoin level before making further changes. Dr. Castaneda is her outpatient neurologist and bank credit card collection clerk tomorrow. Will await further recommendations from him.
[2019-12-02 06:56] LABS: #Eosinphils 0.1 thou/uL (0.0-0.7); #Lymphocytes 1.3 thou/uL (1.20-3.40); #Monocytes 0.7 thou/uL (0.11-0.59); #Neutrophils 3.5 thou/uL (1.40-6.50); %Basophils 0.3 % (0.0-1.0); %Eosinophils 1.3 % (0.0-10.0); %Lymphocytes 23.4 % (21.0-51.0); %Neutrophils 63.1 % (42.0-75.0); Hemoglobin 10.4 g/dL (12.0-16.0); Mean Corpuscular HGB CONC 31.3 g/dL (32.0-36.0); Mean Platelet Volume 8.4 fL (7.4-10.4); Platelet Count 151 thou/uL (130-400); RBC Distribution Width 11.7 % (11.5-14.5); Red Blood Cell (RBC) Count 3.36 mill/uL (4.20-5.40); White Blood Cell (WBC) Count 5.5 thou/uL (4.8-10.8)
[2019-12-02 07:12] LABS: BUN (Urea Nitrogen) 7 mg/dL (9.8-20.1); Calc. Creatinine Clearance 77 mL/min (70-130); Calcium 8.6 mg/dL (7.8-10.44); Estimated GFR-MDRD Greater than 90; Glucose 96 mg/dL (83-110); Magnesium 1.7 mg/dL (1.6-2.6)
[2019-12-02 07:21] LABS: Anion Gap 11 mmol/L (10-20); Carbon Dioxide 39 mmol/L (23-31); Chloride 95 mmol/L (98-107); Potassium 3.3 mmol/L (3.5-5.1); Sodium 142 mmol/L (136-145)
[2019-12-02] MEDS: Aspirin Chewable 81 MG TAB PO SCH (08:35)
[2019-12-02] MEDS: Ferrous Sulfate 325 MG TAB PO SCH (08:35)
[2019-12-02] MEDS: Furosemide 40 MG TAB PO SCH (08:35)
[2019-12-02] MEDS: Clopidogrel Bisulfate 75 MG TAB PO SCH (08:35)
[2019-12-02] MEDS: carBAMazepine 200 MG TAB PO SCH (08:35)
[2019-12-02] MEDS: Losartan 25 MG TAB PO SCH (08:37)
[2019-12-02] MEDS ORDERED: Potassium Chloride 20 MEQ TAB PO SCH (10:15)
--- NOTE | 2019-12-02 10:15 | PDOC.HOSPP ---
- Subjective Encounter Date: 12/02/19 Subjective: Patient seen examined bedside this morning resting in bed no acute distress she is awake alert oriented x3 some improvement in mental status she reports she is feeling overall better however still having generalized weakness no significant overnight events patient has remained afebrile - Objective Vital Signs & Weight: Vital Signs (12 hours) Temp Pulse Resp BP Pulse Ox 12/02/19 07:42 97.7 F 77 20 145/74 H 98 12/02/19 04:00 98 F 84 18 149/62 H 97 12/01/19 23:51 98.6 F 88 18 122/75 90 L Weight Weight 132 lb 1 oz I&O: 12/01/19 12/02/19 12/03/19 06:59 06:59 06:59 Output Total 1400 Balance -1400 Result Diagrams: 12/02/19 06:14 12/02/19 06:14 Hospitalist ROS - Medication Medications: Active Medications Generic Name Dose Route Start Last Admin Trade Name Freq PRN Reason Stop Dose Admin Aspirin 81 mg 11/30/19 09:00 12/02/19 08:35 Aspirin Chewable PO 81 mg DAILY DARWIN Administration Carbamazepine 200 mg 11/30/19 09:00 12/02/19 08:35 Tegretol PO 200 mg BID DARWIN Administration Clopidogrel Bisulfate 75 mg 11/30/19 09:00 12/02/19 08:35 Plavix PO 75 mg DAILY DARWIN Administration Ferrous Sulfate 325 mg 11/30/19 09:00 12/02/19 08:35 Feosol PO 325 mg DAILY DARWIN Administration Furosemide 40 mg 11/30/19 09:00 12/02/19 08:35 Lasix PO 40 mg DAILY DARWIN Administration Isosorbide Mononitrate 60 mg 11/30/19 09:00 12/02/19 08:35 Imdur PO 60 mg DAILY DARWIN Administration Losartan Potassium 25 mg 11/30/19 09:00 12/02/19 08:37 Cozaar PO 25 mg DAILY DARWIN Administration Pantoprazole Sodium 40 mg 11/30/19 09:00 12/02/19 08:35 Protonix PO 40 mg DAILY DARWIN Administration Phenytoin Sodium 300 mg 12/01/19 21:00 12/01/19 20:20 Dilantin Er PO 300 mg Q2D@2100 DARWIN Administration Phenytoin Sodium 400 mg 11/30/19 21:00 11/30/19 21:37 Dilantin Er PO 400 mg Q2D@2100 [facility] Administration - Exam General Appearance: NAD Eye: PERRL ENT: normocephalic atraumatic Neck: supple Heart: RRR Respiratory: CTAB Gastrointestinal: soft Musculoskeletal: generalized weakness Hosp A/P (1) Weakness Code(s): R53.1 - WEAKNESS Status: Acute (2) CAD (coronary artery disease) Code(s): I25.10 - ATHSCL HEART DISEASE OF [place] CORONARY ARTERY W/O ANG PCTRS Status: Chronic Qualifiers: (3) Seizure disorder Code(s): G40.909 - EPILEPSY, UNSP, NOT INTRACTABLE, WITHOUT STATUS EPILEPTICUS Status: Chronic (4) UTI (urinary tract infection) Status: Acute (5) Hypokalemia Code(s): E87.6 - HYPOKALEMIA Status: Acute - Plan Appreciate neurology input EEG reviewed will follow further neurology recommendations Continue PT OT evaluation and treatment during hospital stay patient might benefit from postacute placement Patient remained afebrile with no signs of focal infection will monitor for now Speech and swallow evaluated for dysphagia follow further recommendations Patient mental status appears to be improving today she is awake alert oriented x3 Case management consult for possible placement Continue the rest of her home medications Potassium has been replaced we will continue monitor electrolytes and replace as needed DVT prophylaxis Patient is full code Disposition pending clinical improvement possible in the next 24 to 48 hours patient might need postacute placement
--- NOTE | 2019-12-02 12:00 | CON ---
DATE OF CONSULTATION: 12/02/2019 IMPRESSION: The patient appears to have asterixis. Her EEG ruled out partial seizures. I am going to discontinue her Tegretol and Dilantin. We will get an ammonia level today. There is no evidence of renal dysfunction. Her MRI of the brain is clear. Hopefully, this is related to hyperammonemia that can be treated. Job ID: [id number]
[2019-12-02] MEDS ORDERED: Sodium Chloride 0.65% Nasal 44 ML BOT EA NARE PRN (15:19)
[2019-12-03 06:19] LABS: #Basophils 0.1 thou/uL (0.0-0.2); #Lymphocytes 1.3 thou/uL (1.20-3.40); #Monocytes 0.8 thou/uL (0.11-0.59); #Neutrophils 4.2 thou/uL (1.40-6.50); %Basophils 0.9 % (0.0-1.0); %Eosinophils 0.7 % (0.0-10.0); %Monocytes 12.7 % (0.0-10.0); %Neutrophils 65.7 % (42.0-75.0); Mean Corpuscular HGB CONC 31.3 g/dL (32.0-36.0); Mean Corpuscular Hemoglobin 30.5 pg (27.0-31.0); Mean Corpuscular Volume 97.4 fL (78.0-98.0); Mean Platelet Volume 8.8 fL (7.4-10.4); Platelet Count 148 thou/uL (130-400); RBC Distribution Width 11.6 % (11.5-14.5); Red Blood Cell (RBC) Count 3.27 mill/uL (4.20-5.40); White Blood Cell (WBC) Count 6.4 thou/uL (4.8-10.8)
[2019-12-03 06:38] LABS: BUN (Urea Nitrogen) 5 mg/dL (9.8-20.1); Calc. Creatinine Clearance 82 mL/min (70-130); Calcium 8.8 mg/dL (7.8-10.44); Estimated GFR-MDRD Greater than 90; Glucose 98 mg/dL (83-110); Magnesium 1.7 mg/dL (1.6-2.6)
[2019-12-03 06:47] LABS: Anion Gap 9 mmol/L (10-20); Chloride 91 mmol/L (98-107); Potassium 3.3 mmol/L (3.5-5.1); Sodium 140 mmol/L (136-145)
[2019-12-03 06:51] LABS: Carbon Dioxide 43 mmol/L (23-31)
[2019-12-03] MEDS: Aspirin Chewable 81 MG TAB PO SCH (08:52)
[2019-12-03] MEDS: Clopidogrel Bisulfate 75 MG TAB PO SCH (08:53)
[2019-12-03] MEDS: Ferrous Sulfate 325 MG TAB PO SCH (08:53)
[2019-12-03] MEDS: Losartan 25 MG TAB PO SCH (08:53)
[2019-12-03] MEDS ORDERED: NS 0.9% w/ 40 MEQ KCL 1,000 ML IV SCH (10:00)
[2019-12-03] MEDS ORDERED: Potassium Chloride 20 MEQ TAB PO SCH (10:15)
--- NOTE | 2019-12-03 10:28 | PDOC.HOSPP ---
- Subjective Encounter Date: 12/03/19 (f/u jerking movements) Encounter Time: 10:26 Subjective: No overnight events noted. Pt reports the jerking continues, she continues to feel weak. She reports the area where she sits that she has improved sensation -noticing this today. - Objective Vital Signs & Weight: Vital Signs (12 hours) Temp Pulse Resp BP BP Pulse Ox 12/03/19 07:09 97.7 F 74 16 93/54 L 99 12/03/19 04:00 98.5 F 76 18 146/74 H 99 12/03/19 00:00 98.8 F 91 18 140/67 98 Weight Weight 132 lb 1 oz I&O: 12/02/19 12/03/19 12/04/19 06:59 06:59 06:59 Output Total 1400 675 Balance -1400 -675 Result Diagrams: 12/03/19 05:53 12/03/19 05:53 Hospitalist ROS - Medication Medications: Active Medications Generic Name Dose Route Start Last Admin Trade Name Lópezq PRN Reason Stop Dose Admin Aspirin 81 mg 11/30/19 09:00 12/03/19 08:52 Aspirin Chewable PO 81 mg DAILY DARWIN Administration Clopidogrel Bisulfate 75 mg 11/30/19 09:00 12/03/19 08:53 Plavix PO 75 mg DAILY DARWIN Administration Ferrous Sulfate 325 mg 11/30/19 09:00 12/03/19 08:53 Feosol PO 325 mg DAILY DARWIN Administration Isosorbide Mononitrate 60 mg 11/30/19 09:00 12/03/19 08:53 Imdur PO 60 mg DAILY DARWIN Administration Losartan Potassium 25 mg 11/30/19 09:00 12/03/19 08:53 Cozaar PO Not Given DAILY DARWIN Pantoprazole Sodium 40 mg 11/30/19 09:00 12/03/19 08:53 Protonix PO 40 mg DAILY DARWIN Administration - Exam General Appearance: NAD Heart: RRR, no murmur Heart - other findings: distant heart sounds Respiratory - other findings: fair air movement, bibasilar rales, some wheezing Extremities: no cyanosis Extremities - other findings: clubbing in toenails, on cyanosis Neurological - other findings: tremor of head, and jerking movements of arms/ hands Psychiatric: normal affect Hosp A/P (1) Tremors of nervous system Code(s): R25.1 - TREMOR, UNSPECIFIED Status: Acute (2) Hypokalemia Code(s): E87.6 - HYPOKALEMIA Status: Acute (3) Weakness Code(s): R53.1 - WEAKNESS Status: Acute (4) COPD (chronic obstructive pulmonary disease) Status: Chronic Qualifiers: COPD type: unspecified COPD Qualified Code(s): J44.9 - Chronic obstructive pulmonary disease, unspecified (5) CAD (coronary artery disease) Code(s): I25.10 - ATHSCL HEART DISEASE OF [place] CORONARY ARTERY W/O ANG PCTRS Status: Chronic Qualifiers: - Plan Jerking movements - appreciate Neuro consult - meds d/c, ammonia level checked and normal. Negative EEG - not seizures. Pt with worsening metabolic alkalosi - suspect contraction alkalosis - d/c furosemide - slow IVF x 1 liter - start acetazolamide tomorrow - use IV form if acute resp change - recheck bmp this afternoon and in AM Hypokalemia - replace orally, and add potassium to IVF Hypotension now - systolic pressure 90's - d/c losartan - change imdur to 30 mg daily with hold parameters Fair air movement on exam with known COPD - schedule duonebs tid and add prn albuterol - continue oxygen supplementation - follow exam - has rales today, uncertain if new or normal. If any resp worsening - use IV acetazolamide if fluid overload is suspected dvt prophy - scd's gi prophy - not indicated, pt on home PPI which is continued code status full Pt states she desires to get better and go home. Will request Pall Care assist with goals of care, coping, advance directive and famly support reviewed plan of care with patient adn daughter by phone, no questions or further needs
[2019-12-03] MEDS ORDERED: NS 0.9% w/ 20 MEQ KCL 1,000 ML/1,000 ML BAG IV SCH (10:30)
[2019-12-03] MEDS ORDERED: Albuterol Sulfate 1.25 MG/3 ML NEB NEB PRN (10:32)
[2019-12-03 10:33] LABS: Phosphorus 2.6 mg/dL (2.3-4.7)
[2019-12-03 16:35] LABS: BUN (Urea Nitrogen) 6 mg/dL (9.8-20.1); Calc. Creatinine Clearance 88 mL/min (70-130); Calcium 8.6 mg/dL (7.8-10.44); Estimated GFR-MDRD Greater than 90; Glucose 115 mg/dL (83-110)
[2019-12-03 16:44] LABS: Anion Gap 14 mmol/L (10-20); Carbon Dioxide 35 mmol/L (23-31); Chloride 96 mmol/L (98-107); Potassium 4.9 mmol/L (3.5-5.1); Sodium 140 mmol/L (136-145)
[2019-12-04] MEDS: Clopidogrel Bisulfate 75 MG TAB PO SCH (08:27)
[2019-12-04] MEDS: AcetaZOLAMIDE 250 MG TAB PO SCH (08:28)
[2019-12-04] MEDS: Ferrous Sulfate 325 MG TAB PO SCH (08:29)
[2019-12-04] MEDS: Aspirin Chewable 81 MG TAB PO SCH (08:29)
[2019-12-04] MEDS ORDERED: AcetaZOLAMIDE ER 500 MG CAP PO SCH (09:00)
[2019-12-04] MEDS ORDERED: Lidocaine 2% Viscous Solution 10 ML, Aluminum & Magnesium Hydroxide 30 ML SSW SCH (09:15)
[2019-12-04 09:49] LABS: #Basophils 0.1 thou/uL (0.0-0.2); #Eosinphils 0.1 thou/uL (0.0-0.7); #Monocytes 0.7 thou/uL (0.11-0.59); #Neutrophils 4.3 thou/uL (1.40-6.50); %Basophils 0.9 % (0.0-1.0); %Eosinophils 1.1 % (0.0-10.0); %Lymphocytes 15.8 % (21.0-51.0); %Monocytes 11.4 % (0.0-10.0); %Neutrophils 70.8 % (42.0-75.0); Hemoglobin 10.5 g/dL (12.0-16.0); Mean Corpuscular HGB CONC 31.1 g/dL (32.0-36.0); Mean Corpuscular Hemoglobin 30.3 pg (27.0-31.0); Mean Corpuscular Volume 97.3 fL (78.0-98.0); Mean Platelet Volume 9.1 fL (7.4-10.4); Platelet Count 159 thou/uL (130-400); RBC Distribution Width 11.5 % (11.5-14.5); Red Blood Cell (RBC) Count 3.48 mill/uL (4.20-5.40); White Blood Cell (WBC) Count 6.1 thou/uL (4.8-10.8)
[2019-12-04 10:11] LABS: Lactic Acid 1.2 mmol/L (0.5-2.2)
[2019-12-04 10:24] LABS: ALT (SGPT) 9 U/L (8-55); AST (SGOT) 12 U/L (5-34); Albumin 3.5 g/dL (3.4-4.8); Alkaline Phosphatase 80 U/L (40-110); BUN (Urea Nitrogen) 7 mg/dL (9.8-20.1); Bilirubin, Total 0.3 mg/dL (0.2-1.2); Calc. Creatinine Clearance 76 mL/min (70-130); Calcium 9.2 mg/dL (7.8-10.44); Estimated GFR-MDRD Greater than 90; Globulin 2.6 g/dL (2.4-3.5); Glucose 144 mg/dL (83-110); Magnesium 1.8 mg/dL (1.6-2.6); Protein, Total 6.1 g/dL (6.0-8.3)
[2019-12-04 10:33] LABS: Anion Gap 9 mmol/L (10-20); Chloride 89 mmol/L (98-107); Potassium 3.5 mmol/L (3.5-5.1); Sodium 137 mmol/L (136-145)
[2019-12-04 10:39] LABS: Carbon Dioxide 43 mmol/L (23-31)
--- NOTE | 2019-12-04 14:55 | PDOC.FMACP ---
Advance Care Planning - Problem (1) Palliative care encounter Status: Acute Code(s): Z51.5 - ENCOUNTER FOR PALLIATIVE CARE (2) Weakness Status: Acute Code(s): R53.1 - WEAKNESS (3) Atrial fibrillation Status: Acute Code(s): I48.91 - UNSPECIFIED ATRIAL FIBRILLATION (4) Syncope and collapse Status: Acute Code(s): R55 - SYNCOPE AND COLLAPSE (5) COPD (chronic obstructive pulmonary disease) Status: Chronic Qualifiers: COPD type: unspecified COPD Qualified Code(s): J44.9 - Chronic obstructive pulmonary disease, unspecified - Note Participants: patient, family, palliative care Summary: Palliative Care introduced Advanced Care Planning, allowed an opportunity to decline. The diagnosis, prognosis and goals of care were discussed. Appropriate forms and documentation to accomplish the goals of care were discussed. All questions were answered. Ms Maravilla elected to complete the MPOA naming her daughter Malena. Also introduced Directive to Physicians. Ms Maravilla will discuss with her daughter and if desiring to complete will notify Palliative Crae. Copies of MPOA and Directive to Physician were given to patient, placed on chart and e-mailed to daughter as per request. Goal of her care is to return to the home setting and continue with full resuscitative measures. he Palliative Care Team will continue to assist with completion of any outstanding forms as identified. Please also refer to Palliative Care notes in note section. Time Spent (mins): 20
--- NOTE | 2019-12-04 15:49 | PDOC.HOSPP ---
- Subjective Encounter Date: 12/04/19 Encounter Time: 15:46 Subjective: Patient states she is feeling good and was very surprised with her ability to walk today with PT. States she was able to stand and her legs did not shake. She complains of hiccups that started a couple of minutes ago. Reports tolerating oral intake and states she tries not to each too much meat but apart form that has a good diet. Reports no changes with her breathing. She continues with O2 by [place] which she uses at home. No complaints at this time and no issues over night. - Objective Vital Signs & Weight: Vital Signs (12 hours) Temp Pulse Resp BP BP BP Pulse Ox 12/04/19 13:38 79 16 98 12/04/19 12:51 67 20 165/75 H 95 12/04/19 10:13 12/04/19 08:30 92 L 12/04/19 07:21 97.9 F 91 20 135/72 90 L 12/04/19 06:49 100 12/04/19 06:46 71 16 100 12/04/19 03:52 98.7 F 83 18 156/66 H 97 Pulse Ox Pulse Ox 12/04/19 13:38 12/04/19 12:51 12/04/19 10:13 94 L 92 L 12/04/19 08:30 12/04/19 07:21 12/04/19 06:49 12/04/19 06:46 12/04/19 03:52 Weight Weight 132 lb 1 oz I&O: 12/03/19 12/04/19 12/05/19 06:59 06:59 06:59 Output Total 277 550 Balance -675 -550 Result Diagrams: 12/04/19 09:38 12/04/19 09:38 Radiology Reviewed by me: Yes EKG Reviewed by me: Yes Hospitalist ROS - Review of Systems Constitutional: denies: fever, chills, sweats, weakness, malaise, other Eyes: denies: pain, vision change, conjunctivae inflammation, eyelid inflammation, redness, other ENT: denies: ear pain, ear discharge, nose pain, nose discharge, nose congestion , mouth pain, mouth swelling, throat pain, throat swelling, other Respiratory: reports: dry (nasal airways, states she usually uses nasal spray at home), shortness of breath (chronic and unchanged) Cardiovascular: denies: chest pain, palpitations, orthopnea, paroxysmal noc. dyspnea, edema, light headedness, other Gastrointestinal: denies: nausea, vomiting, abdominal pain, diarrhea, constipation, melena, hematochezia, other Genitourinary: denies: dysuria, frequency, incontinence, hematuria, retention, other Musculoskeletal: denies: neck pain, shoulder pain, arm pain, back pain, hand pain, leg pain, foot pain, other Skin: reports: ejffy, bruising (associated with lab draw attempts). denies: rash , lesions Neurological: reports: other (Continues with bilateral hand tremor, slightly better.) - Medication Medications: Active Medications Generic Name Dose Route Start Last Admin Trade Name Freq PRN Reason Stop Dose Admin Acetazolamide 250 mg 12/04/19 09:00 12/04/19 08:28 Diamox PO 250 mg DAILY DARWIN Administration Albuterol/Ipratropium 3 ml 12/03/19 12:30 12/04/19 13:38 Duoneb NEB 3 ml TID-RT DARWIN Administration Aspirin 81 mg 11/30/19 09:00 12/04/19 08:29 Aspirin Chewable PO 81 mg DAILY DARWIN Administration Clopidogrel Bisulfate 75 mg 11/30/19 09:00 12/04/19 08:27 Plavix PO 75 mg DAILY DARWIN Administration Ferrous Sulfate 325 mg 11/30/19 09:00 12/04/19 08:29 Feosol PO 325 mg DAILY DARWIN Administration Isosorbide Mononitrate 30 mg 12/04/19 09:00 12/04/19 08:30 Imdur Er PO 30 mg DAILY DARWIN Administration Pantoprazole Sodium 40 mg 11/30/19 09:00 12/04/19 08:29 Protonix PO 40 mg DAILY DARWIN Administration - Exam General Appearance: NAD Eye: PERRL, anicteric sclera ENT: normocephalic atraumatic, no oropharyngeal lesions, moist mucosa Neck: supple Heart: RRR, no murmur, no gallops, no rubs, normal peripheral pulses Respiratory: normal chest expansion Respiratory - other findings: Decreased at the bases, bilaterally Gastrointestinal: soft, non-tender, normal bowel sounds Gastrointestinal - other findings: mild distention Extremities: no edema Skin: normal turgor, no lesions, no rashes Neurological: cranial nerve grossly intact Musculoskeletal: normal tone, normal strength, no muscle wasting Musculoskeletal - other findings: tremors of both hands, intermittent, sometimes resting tremor Psychiatric: normal affect, normal behavior, A&O x 3 Hosp A/P (1) Tremors of nervous system Code(s): R25.1 - TREMOR, UNSPECIFIED Status: Acute (2) Weakness Code(s): R53.1 - WEAKNESS Status: Acute (3) Atrial fibrillation Code(s): I48.91 - UNSPECIFIED ATRIAL FIBRILLATION Status: Chronic (4) CAD (coronary artery disease) Code(s): I25.10 - ATHSCL HEART DISEASE OF [place] CORONARY ARTERY W/O ANG PCTRS Status: Chronic Qualifiers: (5) COPD (chronic obstructive pulmonary disease) Status: Chronic Qualifiers: COPD type: unspecified COPD Qualified Code(s): J44.9 - Chronic obstructive pulmonary disease, unspecified - Plan old records reviewed/req, PT/OT She has been seen by Neuro as well and investigations unremarkable including EEG. No definitive findings to explain the tremors that persist, though much improved compared to initial presentation. Tegretol and Dilantin discontinued, as per Neuro. Will check Vit B12 and Folate. She does have decreased lung sounds at bases with elevated BNP. Will obtain a CXR to ensure she does not have signs of fluid overload, as her lasix was discontinued yesterday. Continue to monitor O2 sats. Patient confirms her mobility has significantly improved while here. Continue PT/OT, patient recommended rehab however daughter was reluctant as waiting to hear from Dr. Childers. 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 Per [facility], Dr. Childers has communicated that to patients daughter and cleared her for discharge from neurosurgery standpoint. Will discuss with daughter plans to move forward with rehab if above investigations unremarkable.
--- NOTE | 2019-12-04 16:17 | RAD ---
EXAM: Chest PA and lateral: HISTORY: Decreased breath sounds at the bases. COMPARISON: 11/29/2019 FINDINGS: Heart: Upper normal cardiac silhouette Aorta: Unremarkable Pulmonary vessels: Normal Costophrenic angles: Interval development of bilateral pleural effusions, left greater than right Lungs: Hyperinflation. Lung parenchymal changes predominantly the lung bases. Additional scattered in terstitial opacities may represent component of chronic change. Pneumothorax: No pneumothorax Osseous structures: No osseous abnormalities IMPRESSION: Bibasilar pleural and parenchymal changes. Continued surveillance is recommended.
[2019-12-04] MEDS ORDERED: Famotidine 20 MG TAB PO SCH (21:00)
[2019-12-05 05:58] LABS: Phosphorus 2.6 mg/dL (2.3-4.7)
[2019-12-05] MEDS: Aspirin Chewable 81 MG TAB PO SCH (08:05)
[2019-12-05] MEDS: AcetaZOLAMIDE 250 MG TAB PO SCH (08:05)
[2019-12-05] MEDS: Ferrous Sulfate 325 MG TAB PO SCH (08:05)
[2019-12-05] MEDS: Clopidogrel Bisulfate 75 MG TAB PO SCH (08:05)
[2019-12-05] MEDS ORDERED: Magnesium 2 GM/50 ML 2 GM in Premix Bag 1 BAG IVPB SCH (09:30)
[2019-12-05] MEDS ORDERED: Cyanocobalamin (Vitamin B-12) 1,000 MCG TAB PO SCH (09:30)
[2019-12-05] MEDS ORDERED: Multivit, Therapeutic 1 TAB PO SCH (09:30)
[2019-12-05] MEDS ORDERED: Folic Acid 1 MG TAB PO SCH (09:30)
[2019-12-05 09:42] LABS: #Basophils 0.1 thou/uL (0.0-0.2); #Eosinphils 0.1 thou/uL (0.0-0.7); #Monocytes 0.7 thou/uL (0.11-0.59); #Neutrophils 3.7 thou/uL (1.40-6.50); %Basophils 0.9 % (0.0-1.0); %Eosinophils 1.3 % (0.0-10.0); %Lymphocytes 31.3 % (21.0-51.0); %Neutrophils 56.5 % (42.0-75.0); Hemoglobin 11.2 g/dL (12.0-16.0); Mean Corpuscular HGB CONC 31.8 g/dL (32.0-36.0); Mean Corpuscular Volume 97.5 fL (78.0-98.0); Mean Platelet Volume 8.5 fL (7.4-10.4); Platelet Count 181 thou/uL (130-400); RBC Distribution Width 11.8 % (11.5-14.5); Red Blood Cell (RBC) Count 3.61 mill/uL (4.20-5.40); White Blood Cell (WBC) Count 6.5 thou/uL (4.8-10.8)
[2019-12-05 09:56] LABS: ALT (SGPT) 11 U/L (8-55); AST (SGOT) 16 U/L (5-34); Albumin 3.8 g/dL (3.4-4.8); Alkaline Phosphatase 86 U/L (40-110); Anion Gap 10 mmol/L (10-20); BUN (Urea Nitrogen) 7 mg/dL (9.8-20.1); Bilirubin, Total 0.2 mg/dL (0.2-1.2); Calc. Creatinine Clearance 68 mL/min (70-130); Calcium 9.6 mg/dL (7.8-10.44); Carbon Dioxide 36 mmol/L (23-31); Chloride 98 mmol/L (98-107); Estimated GFR-MDRD Greater than 90; Globulin 2.9 g/dL (2.4-3.5); Glucose 154 mg/dL (83-110); Magnesium 2.1 mg/dL (1.6-2.6); Phosphorus 2.4 mg/dL (2.3-4.7); Potassium 3.5 mmol/L (3.5-5.1); Protein, Total 6.7 g/dL (6.0-8.3); Sodium 140 mmol/L (136-145)
[2019-12-05] MEDS ORDERED: Mag-Al 1200 mg/1200 mg/30 ML UDCUP PO PRN (10:30)
[2019-12-05] MEDS ORDERED: Calcium Carbonate 500 MG ChewTAB PO PRN (10:30)
[2019-12-05 10:34] LABS: Actual Bicarbonate (HCO3a) 31.9 mEq/L (22-28); Base Excess (BEa) 4.9 mEq/L (-2.0 to +3.0); CO2 Tension 59.8 mmHg (35.0-45.0); Calcium, Ionized (arterial) 1.24 mmol/L (1.12-1.30); Carboxyhemoglobin (COHb) 0.3 gm% (0.0-3.0); Hemoglobin (Hb) 11.1 g/dL (12.0-16.0); O2 Tension (PaO2), arterial 77.2 mmHg (> 60.0); pH, Arterial 7.35 (7.35-7.45)
[2019-12-05 10:36] LABS: Puncture Site RBRACH
--- NOTE | 2019-12-05 11:41 | PDOC.HOSPP ---
- Subjective Encounter Date: 12/05/19 - Objective Vital Signs & Weight: Vital Signs (12 hours) Temp Pulse Resp BP Pulse Ox 12/05/19 07:46 80 16 95 12/05/19 07:26 99.0 F 80 20 159/80 H 97 12/05/19 04:00 97.8 F 78 20 150/70 H 100 12/05/19 00:48 97 12/04/19 23:50 99.2 F 82 20 128/80 97 Weight Weight 132 lb 1 oz I&O: 12/04/19 12/05/19 12/06/19 06:59 06:59 06:59 Intake Total 600 Output Total 550 1500 Balance -550 -900 Result Diagrams: 12/05/19 09:27 12/05/19 09:27 Hospitalist ROS - Medication Medications: Active Medications Generic Name Dose Route Start Last Admin Trade Name Freq PRN Reason Stop Dose Admin Albuterol/Ipratropium 3 ml 12/03/19 12:30 12/05/19 07:46 Duoneb NEB 3 ml TID-RT DARWIN Administration Aspirin 81 mg 11/30/19 09:00 12/05/19 08:05 Aspirin Chewable PO 81 mg DAILY DARWIN Administration Calcium Carbonate 1,000 mg 12/05/19 10:30 12/05/19 10:57 Tums PO 1,000 mg Q4H PRN Administration Heartburn or Indigestion Clopidogrel Bisulfate 75 mg 11/30/19 09:00 12/05/19 08:05 Plavix PO 75 mg DAILY DARWIN Administration Ferrous Sulfate 325 mg 11/30/19 09:00 12/05/19 08:05 Feosol PO 325 mg DAILY DARWIN Administration Folic Acid 1 mg 12/05/19 09:30 12/05/19 10:56 Folvite PO 1 mg Q24H DARWIN Administration Isosorbide Mononitrate 30 mg 12/04/19 09:00 12/05/19 08:05 Imdur Er PO 30 mg DAILY DARWIN Administration Pantoprazole Sodium 40 mg 11/30/19 09:00 12/05/19 08:05 Protonix PO 40 mg DAILY DARWIN Administration
--- NOTE | 2019-12-05 17:06 | DIS ---
DATE OF ADMISSION: 11/29/2019 DATE OF DISCHARGE: 12/05/2019 DISCHARGE DISPOSITION: Home. The patient declined home health care. FOLLOWUP: 1. Follow up with primary care physician, Dr. Jane Bellamy in 1 week. 2. Follow up with Pulmonary, Dr. Shea in 1 to 2 weeks. 3. Follow up with Dr. Childers, Neurosurgery as scheduled. The patient was seen and examined on the day of discharge. Denies any new complaints. Symptomatically feels better. DISCHARGE MEDICATIONS: Same as admission medications. Vitamin B12 was added. INPATIENT PLAYER DEVELOPMENT EXECUTIVE: Neurology, Dr. Castaneda. BRIEF HOSPITAL COURSE: The patient is an 79-year-old female, who presented to the emergency room with generalized weakness along with uncontrollable arm movement. Please refer to the history and physical for further details. The patient was admitted to the hospital with a diagnosis of generalized weakness. She was on carbamazepine and Dilantin on admission, which were discontinued by Neurology, Dr. Castaneda. Her symptoms gradually improved. Pulmonary embolism was ruled out. Her mentation has significantly improved. She also had EEG, that showed moderate generalized nonspecific cerebral dysfunction without any epileptiform abnormalities. A CT scan of the brain was negative as well. FINAL DIAGNOSES: 1. Generalized weakness, multifactorial. 2. Toxic metabolic encephalopathy, multifactorial, present on admission, improved. 3. Myoclonic jerking, probably secondary to carbamazepine/Dilantin. Both of these medications were discontinued. 4. Metabolic alkalosis, improved with acetazolamide. 5. Hypokalemia, replaced. 6. Chronic hypoxic and hypercapnic respiratory failure, secondary to chronic obstructive pulmonary disease, followed by Dr. Shea. 7. Coronary artery disease. 8. Lung nodules. Primary care physician advised to follow. 9. Vitamin B12 in the low normal range at 391. 10. Chronic anemia, suspected due to nutritional deficiency. The patient understands the above plan of care. I discussed the plan of care with the daughter in detail over the phone. Please note that I assumed the care of this patient on the day of discharge. Job ID: [id number]
[2019-12-05 19:32] VITALS: BP 147/81; TEMP 98.1
[2019-12-06] MEDS ORDERED: Cyanocobalamin (Vitamin B-12) 1,000 MCG TAB PO SCH (09:00)
[2019-12-06] MEDS ORDERED: AcetaZOLAMIDE 250 MG TAB PO SCH (09:00)
[2019-12-06] MEDS ORDERED: Multivit, Therapeutic 1 TAB PO SCH (09:00)
== END 2019-12-05 19:30 | disposition home or self-care (01) ==
LOC: ERS 15:31 → T4-A 21:27
PROVIDERS: ADMIT Internal Medicine; ATTEND Internal Medicine
DX: G92 Toxic encephalopathy (principal); E87.3 Alkalosis; E87.6 Hypokalemia; J44.9 Chronic obstructive pulmonary disease, unspecified; J96.12 Chronic respiratory failure with hypercapnia; J96.11 Chronic respiratory failure with hypoxia; I25.10 Atherosclerotic heart disease of native coronary artery without angina pectoris; R91.1 Solitary pulmonary nodule; D64.9 Anemia, unspecified; I95.9 Hypotension, unspecified; G40.909 Epilepsy, unspecified, not intractable, without status epilepticus; Z88.1 Allergy status to other antibiotic agents; Z88.5 Allergy status to narcotic agent; Z88.8 Allergy status to other drugs, medicaments and biological substances; Z79.82 Long term (current) use of aspirin; Z79.899 Other long term (current) drug therapy; Z95.5 Presence of coronary angioplasty implant and graft
CPT/HCPCS: 36415; 51701; 51702; 51798; 70450; 71045; 71046; 71275; 80048; 80053; 81003; 81015; 82140; 82550; 82607; 82728; 82746; 82805; 83605; 83690; 83735; 83880; 84100; 84484; 85025; 86140; 87040; 87086; 87149; 93005; 94640; 95712; 95816; 95819; 95957; 96361; 96374; 96375; G0378; J0696; J3475; J3480; J7620; Q9967

== ENCOUNTER 2020-02-16 08:20 | Outpatient (CLI) | payer MEDICARE ==
[2020-02-16 10:45] LABS: Estimated GFR-MDRD - POC Greater than 90
--- NOTE | 2020-02-16 13:10 | CT ---
EXAM: CT Chest Abd Pelvis W Con PROVIDED CLINICAL HISTORY: Pulmonary nodules Abdominal pain COMPARISON: CT chest pulmonary angiogram 11/29/2019 FINDINGS: The heart, pericardium and great vessels appear unremarkable with the exception of vascular calcifica tion including coronary calcium. The lungs are free of significant opacity. Occasional sub-4 mm noncalcified nodular densities are dem onstrated. There is no evidence for pleural fluid or pneumothorax. The airway appears patent and of normal caliber. The liver, spleen, pancreas, kidneys and adrenal glands demonstrate no significant abnormality. Calci fied granulomata are seen within the spleen. Moderate hiatal hernia redemonstrated. There is no evidence for bowel obstruction. There is no inflam matory fat stranding, free fluid or lymph node enlargement apparent. There is conspicuous fecal retention involving the sigmoid colon and rectum without surrounding fat stranding. 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 The osseous structures demonstrate no concerning lytic or blastic lesions. IMPRESSION: 1. No evidence for significant pulmonary parenchymal abnormality. 2. Atherosclerosis including coronary calcium. 3. Conspicuous sigmoid colon and rectal fecal retention.
== END 2020-02-16 08:21 | disposition home or self-care (01) ==
LOC: SCSCT 08:20
PROVIDERS: ATTEND Family Medicine
DX: R91.8 Other nonspecific abnormal finding of lung field (principal); I25.10 Atherosclerotic heart disease of native coronary artery without angina pectoris; K59.00 Constipation, unspecified
CPT/HCPCS: 71260; 74177; 82565

== ENCOUNTER 2020-09-14 10:46 | Emergency (ER) | payer MEDICARE ==
[2020-09-14 12:23] LABS: Bilirubin Negative (Negative); Blood, Urine Negative (Negative); Clarity Clear (Clear); Glucose, Urine (Dipstick) Normal (Negative); Ketone, Urine Negative (Negative); Leukocyte Negative Leu/uL (Negative); Nitrite Negative (Negative); Protein, Urine (Dipstick) Negative (Neg-Trace); Urobilinogen Normal mg/dL (Less than 2); pH, Urine 5.5 (5.0-9.0)
== END 2020-09-14 13:18 | disposition home or self-care (01) ==
LOC: ERS 10:46
DX: S06.0X0A Concussion without loss of consciousness, initial encounter (principal); S16.1XXA Strain of muscle, fascia and tendon at neck level, initial encounter; W10.9XXA Fall (on) (from) unspecified stairs and steps, initial encounter; I48.91 Unspecified atrial fibrillation; I25.10 Atherosclerotic heart disease of native coronary artery without angina pectoris; J44.9 Chronic obstructive pulmonary disease, unspecified; Z87.891 Personal history of nicotine dependence
CPT/HCPCS: 70450; 71045; 72125; 81003

== ENCOUNTER 2020-09-14 21:04 | Inpatient (IN) | payer MEDICARE ==
[2020-09-14 21:51] LABS: #Eosinphils 0.1 thou/uL (0.0-0.7); #Lymphocytes 1.9 thou/uL (1.20-3.40); #Monocytes 0.7 thou/uL (0.11-0.59); %Basophils 0.5 % (0.0-1.0); %Eosinophils 1.3 % (0.0-10.0); %Lymphocytes 28.2 % (21.0-51.0); %Monocytes 10.4 % (0.0-10.0); %Neutrophils 59.6 % (42.0-75.0); Mean Corpuscular HGB CONC 31.7 g/dL (32.0-36.0); Mean Corpuscular Hemoglobin 31.4 pg (27.0-31.0); Mean Corpuscular Volume 99.1 fL (78.0-98.0); Mean Platelet Volume 8.3 fL (7.4-10.4); Platelet Count 162 thou/uL (130-400); RBC Distribution Width 11.8 % (11.5-14.5); Red Blood Cell (RBC) Count 3.51 mill/uL (4.20-5.40); White Blood Cell (WBC) Count 6.7 thou/uL (4.8-10.8)
[2020-09-14 22:16] LABS: ALT (SGPT) 7 U/L (8-55); AST (SGOT) 15 U/L (5-34); Albumin 3.7 g/dL (3.4-4.8); Alkaline Phosphatase 74 U/L (40-110); BUN (Urea Nitrogen) 12 mg/dL (9.8-20.1); Bilirubin, Total 0.4 mg/dL (0.2-1.2); CK (CPK) 19 U/L (29-168); Calc. Creatinine Clearance 0 mL/min (70-130); Calcium 9.2 mg/dL (7.8-10.44); Globulin 2.9 g/dL (2.4-3.5); Glucose 110 mg/dL (83-110); Protein, Total 6.6 g/dL (5.8-8.1)
[2020-09-14 22:25] LABS: Anion Gap 17 mmol/L (10-20); Carbon Dioxide 35 mmol/L (23-31); Chloride 85 mmol/L (98-107); Potassium 4.7 mmol/L (3.5-5.1); Sodium 132 mmol/L (136-145)
[2020-09-14] MEDS ORDERED: Ondansetron PF 4 MG/2 ML Vial ONE (22:29)
[2020-09-14 23:51] LABS: Analyzer IN Cardio ER; pH (venous) 7.28 (7.32-7.43)
[2020-09-14 23:52] LABS: Actual Bicarbonate (HCO3v) 37 mEq/L (22-28); Base Excess 7.9 mEq/L (-2.0 to +3.0)
[2020-09-14 23:53] LABS: Chloride (VBG) 87 mmol/L (98-106); Potassium (VBG) 4.54 mmol/L (3.70-5.30); Sodium 132.7 mmol/L (133-146)
[2020-09-15] MEDS ORDERED: Acetaminophen 650 MG Suppository PR PRN (00:32)
[2020-09-15] MEDS ORDERED: Acetaminophen 325 MG TAB PO PRN (00:32)
[2020-09-15 01:39] LABS: Lactic Acid 0.6 mmol/L (0.5-2.2)
[2020-09-15 01:41] LABS: CRP (Inflammatory) 1.99 mg/dL (= or < 0.5); Magnesium 1.7 mg/dL (1.6-2.6)
[2020-09-15 01:47] LABS: Troponin I 0.021 ng/mL (< 0.028)
[2020-09-15 01:58] LABS: Actual Bicarbonate (HCO3a) 49.2 mEq/L (22-28); Analyzer IN Cardio OR; Base Excess (BEa) 16.5 mEq/L (-2.0 to +3.0); Calcium, Ionized (arterial) 1.16 mmol/L (1.12-1.30); Carboxyhemoglobin (COHb) 1.2 gm% (0.0-3.0); Hemoglobin (Hb) 11.6 g/dL (12.0-16.0); Potassium - ABG Lab 4.59 mmol/L (3.70-5.30)
[2020-09-15 02:00] LABS: pH, Arterial 7.21 (7.35-7.45)
[2020-09-15] MEDS ORDERED: Magnesium 2 GM/50 ML 2 GM in Premix Bag 1 BAG IVPB SCH (02:00)
[2020-09-15 02:01] LABS: CO2 Tension 127.3 mmHg (35.0-45.0); O2 Tension (PaO2), arterial 54.3 mmHg (> 60.0)
[2020-09-15 02:02] LABS: ALV-art Gradient 14.735 mmHg (0-20); Puncture Site RBA
[2020-09-15 03:26] LABS: #Eosinphils 0.1 thou/uL (0.0-0.7); #Lymphocytes 0.6 thou/uL (1.20-3.40); #Neutrophils 7.1 thou/uL (1.40-6.50); %Eosinophils 0.6 % (0.0-10.0); %Lymphocytes 6.7 % (21.0-51.0); %Monocytes 11.4 % (0.0-10.0); %Neutrophils 81.4 % (42.0-75.0); Hemoglobin 11.2 g/dL (12.0-16.0); Mean Corpuscular HGB CONC 31.4 g/dL (32.0-36.0); Mean Corpuscular Hemoglobin 31.7 pg (27.0-31.0); Mean Platelet Volume 8.5 fL (7.4-10.4); Platelet Count 140 thou/uL (130-400); RBC Distribution Width 11.7 % (11.5-14.5); Red Blood Cell (RBC) Count 3.54 mill/uL (4.20-5.40); White Blood Cell (WBC) Count 8.8 thou/uL (4.8-10.8)
[2020-09-15] MEDS ORDERED: PROPOFOL 200 MG/20 ML VIAL ONE (03:45)
[2020-09-15] MEDS ORDERED: Succinylcholine 200 MG/10 ml SYRINGE FS ONE (03:45)
[2020-09-15 03:49] LABS: ALT (SGPT) 8 U/L (8-55); AST (SGOT) 16 U/L (5-34); Albumin 3.7 g/dL (3.4-4.8); Alkaline Phosphatase 74 U/L (40-110); BUN (Urea Nitrogen) 13 mg/dL (9.8-20.1); Bilirubin, Total 0.3 mg/dL (0.2-1.2); Calc. Creatinine Clearance 128 mL/min (70-130); Calcium 9.1 mg/dL (7.8-10.44); Cardiac Risk 2.9 (Less than 4.5); Cholesterol 188 mg/dl (< 200 Desired); Glucose 161 mg/dL (83-110); HDL Cholesterol 64 mg/dL (>60 Neg Risk); LDL Cholesterol, Calculated 109 mg/dL; Protein, Total 6.7 g/dL (5.8-8.1); Triglycerides 74 mg/dL (Less than 150)
[2020-09-15] MEDS ORDERED: Propofol 1,000 MG/100 ML VIAL IV ONE (03:58)
[2020-09-15 03:59] LABS: Anion Gap 24 mmol/L (10-20); Carbon Dioxide 29 mmol/L (23-31); Chloride 86 mmol/L (98-107); Sodium 134 mmol/L (136-145)
[2020-09-15] MEDS ORDERED: levETIRAcetam in NS 1,500 MG in Premix Bag 1 BAG IVPB SCH (04:00)
[2020-09-15] MEDS ORDERED: Morphine 2 MG/ML VIAL SLOW IVP PRN ×2 (04:15→09:15)
[2020-09-15] MEDS ORDERED: Propofol BOLUS 1,000 MG/100 ML VIAL IV PRN ×2 (04:15→09:15)
[2020-09-15] MEDS ORDERED: Propofol 1,000 MG/100 ML VIAL IV PRN (04:15)
[2020-09-15] MEDS ORDERED: Lorazepam 2 MG/ML VIAL SLOW IVP PRN ×2 (04:15→09:15)
[2020-09-15] MEDS ORDERED: DISCONTINUE PREVIOUS NARCOTIC PAIN MEDICATIONS AND BENZODIAZEPINES FS SCH ×2 (04:15→09:15)
[2020-09-15] MEDS ORDERED: Fentanyl CADD 100 ML IV SCH ×2 (04:15→09:15)
[2020-09-15] MEDS ORDERED: Fentanyl BOLUS 250 ML IVPB PRN ×2 (04:15→09:15)
[2020-09-15 04:39] LABS: Actual Bicarbonate (HCO3a) 40.5 mEq/L (22-28); Base Excess (BEa) 10.5 mEq/L (-2.0 to +3.0); Calcium, Ionized (arterial) 1.15 mmol/L (1.12-1.30); Carboxyhemoglobin (COHb) 1.1 gm% (0.0-3.0); Hemoglobin (Hb) 11.6 g/dL (12.0-16.0); O2 Tension (PaO2), arterial 126.4 mmHg (> 60.0); Potassium - ABG Lab 5.31 mmol/L (3.70-5.30); pH, Arterial 7.27 (7.35-7.45)
[2020-09-15 04:48] LABS: CO2 Tension 90.7 mmHg (35.0-45.0); Puncture Site RBA
[2020-09-15 04:50] LABS: ALV-art Gradient 116.725 mmHg (0-20)
[2020-09-15 05:47] LABS: Bacteria/HPF None Seen HPF (None Seen); Bilirubin Negative (Negative); Blood, Urine Negative (Negative); Clarity Clear (Clear); Glucose, Urine (Dipstick) Normal (Negative); Ketone, Urine Trace mg/dL (Negative); Leukocyte Negative Leu/uL (Negative); Nitrite Negative (Negative); Protein, Urine (Dipstick) 30 mg/dL (Neg-Trace); RBC/HPF 0-3 HPF (0-3); Squamous Epithelial 0-3 HPF (0-3); Urobilinogen Normal mg/dL (Less than 2); WBC/HPF 0-3 HPF (0-3)
[2020-09-15 05:48] LABS: Urine Culture Reflex No No
[2020-09-15 05:51] LABS: Amphetamine Not Detected (NotDetected); Barbiturates Screen Not Detected (NotDetected); Benzodiazepine Screen Not Detected (NotDetected); Cocaine Metabolite Screen Not Detected (NotDetected); Medtox Control Line Valid? VALID (VALID); Medtox Reader # READER 4; Methadone Not Detected (NotDetected); Methamphetamine Not Detected (NotDetected); Opiate Screen Not Detected (NotDetected); Oxycodone Screen Not Detected (NotDetected); Phencyclidine (PCP) Not Detected (NotDetected); THC/Cannabinoid Screen Not Detected (NotDetected); Tricyclic Screen Not Detected (NotDetected)
[2020-09-15 07:31] LABS: SARS-CoV-2 NAA Rapid Test Not Detected (NotDetected)
[2020-09-15] MEDS ORDERED: Ventilator Sedation Protocol 1 EACH FS ONE (08:54)
[2020-09-15] MEDS ORDERED: Electrolyte Replacement Protocol 1 EACH FS PRN (08:54)
[2020-09-15] MEDS: cefTRIAXone\\ROCEPHIN 2 GM in Sodium Chloride 0.9% 100 ML IVPB SCH (10:09)
[2020-09-15] MEDS: Pantoprazole 40 MG VIAL IVP SCH (10:12)
[2020-09-15] MEDS: methylPREDNISolone Sod Succ 40 MG VIAL IVP SCH ×3 (12:02→23:08)
[2020-09-15] MEDS: Propofol 1,000 MG/100 ML VIAL IV PRN ×2 (18:35→22:39)
[2020-09-15] MEDS: Budesonide 0.5 MG/2 ML NEB NEB SCH (19:31)
[2020-09-15] MEDS ORDERED: Valproate Sodium 500 MG in Sodium Chloride 0.9% 100 ML IVPB SCH (21:00)
[2020-09-15] MEDS ORDERED: Divalproex Sodium 250 MG (DR) TAB PER TUBE SCH (21:00)
[2020-09-15] MEDS: Divalproex Sodium DR 500 MG TAB PO SCH (22:34)
[2020-09-16 03:29] LABS: #Lymphocytes 0.5 thou/uL (1.20-3.40); #Monocytes 0.3 thou/uL (0.11-0.59); %Lymphocytes 5.3 % (21.0-51.0); %Monocytes 3.4 % (0.0-10.0); %Neutrophils 91.2 % (42.0-75.0); Hemoglobin 10.5 g/dL (12.0-16.0); Mean Corpuscular HGB CONC 33.3 g/dL (32.0-36.0); Mean Corpuscular Hemoglobin 31.6 pg (27.0-31.0); Mean Corpuscular Volume 94.8 fL (78.0-98.0); Mean Platelet Volume 8.9 fL (7.4-10.4); Platelet Count 152 thou/uL (130-400); Red Blood Cell (RBC) Count 3.32 mill/uL (4.20-5.40); White Blood Cell (WBC) Count 9.9 thou/uL (4.8-10.8)
[2020-09-16 03:44] LABS: Anion Gap 17 mmol/L (10-20); BUN (Urea Nitrogen) 14 mg/dL (9.8-20.1); Calc. Creatinine Clearance 63 mL/min (70-130); Calcium 9.5 mg/dL (7.8-10.44); Carbon Dioxide 35 mmol/L (23-31); Chloride 84 mmol/L (98-107); Glucose 167 mg/dL (83-110); Potassium 3.1 mmol/L (3.5-5.1); Sodium 133 mmol/L (136-145)
[2020-09-16] MEDS: methylPREDNISolone Sod Succ 40 MG VIAL IVP SCH ×3 (06:09→18:30)
[2020-09-16] MEDS: Budesonide 0.5 MG/2 ML NEB NEB SCH ×2 (07:21→19:09)
[2020-09-16 07:40] LABS: Actual Bicarbonate (HCO3a) 38.5 mEq/L (22-28); Base Excess (BEa) 15.1 mEq/L (-2.0 to +3.0); CO2 Tension 42.3 mmHg (35.0-45.0); Calcium, Ionized (arterial) 1.08 mmol/L (1.12-1.30); Carboxyhemoglobin (COHb) 0.3 gm% (0.0-3.0); Hemoglobin (Hb) 11.1 g/dL (12.0-16.0); O2 Tension (PaO2), arterial 72.2 mmHg (> 60.0); Potassium - ABG Lab 3.23 mmol/L (3.70-5.30)
[2020-09-16 07:42] LABS: Puncture Site LBA; pH, Arterial 7.58 (7.35-7.45)
[2020-09-16 07:43] LABS: ALV-art Gradient 124.475 mmHg (0-20)
[2020-09-16] MEDS: Potassium Chloride 20 MEQ in Premix Bag 1 BAG IVPB SCH ×2 (08:00→10:52)
[2020-09-16] MEDS: Enoxaparin Sodium 40 MG/0.4 ML SYRINGE SC SCH (08:16)
[2020-09-16] MEDS: Pantoprazole 40 MG VIAL IVP SCH (08:16)
[2020-09-16] MEDS: Divalproex Sodium DR 500 MG TAB PO SCH (08:17)
[2020-09-16] MEDS: cefTRIAXone\\ROCEPHIN 2 GM in Sodium Chloride 0.9% 100 ML IVPB SCH (10:47)
[2020-09-16] MEDS: Propofol 1,000 MG/100 ML VIAL IV PRN (12:56)
[2020-09-16 14:29] VITALS: BMI 24.3
[2020-09-16] MEDS: Valproate Sodium 250 mg/5 ml UD Cup PER TUBE SCH (21:27)
[2020-09-17] MEDS: methylPREDNISolone Sod Succ 40 MG VIAL IVP SCH ×4 (00:50→17:48)
[2020-09-17 04:08] LABS: #Lymphocytes 0.7 thou/uL (1.20-3.40); #Monocytes 0.6 thou/uL (0.11-0.59); #Neutrophils 12.6 thou/uL (1.40-6.50); %Basophils 0.1 % (0.0-1.0); %Lymphocytes 4.9 % (21.0-51.0); %Neutrophils 91.1 % (42.0-75.0); Hemoglobin 10.8 g/dL (12.0-16.0); Mean Corpuscular HGB CONC 33.2 g/dL (32.0-36.0); Mean Corpuscular Hemoglobin 31.2 pg (27.0-31.0); Mean Corpuscular Volume 93.9 fL (78.0-98.0); Mean Platelet Volume 9.2 fL (7.4-10.4); Platelet Count 181 thou/uL (130-400); RBC Distribution Width 12.4 % (11.5-14.5); Red Blood Cell (RBC) Count 3.47 mill/uL (4.20-5.40); White Blood Cell (WBC) Count 13.8 thou/uL (4.8-10.8)
[2020-09-17 04:32] LABS: BUN (Urea Nitrogen) 22 mg/dL (9.8-20.1); Calc. Creatinine Clearance 55 mL/min (70-130); Glucose 149 mg/dL (83-110)
[2020-09-17 04:43] LABS: Anion Gap 17 mmol/L (10-20); Carbon Dioxide 33 mmol/L (23-31); Chloride 87 mmol/L (98-107); Potassium 3.1 mmol/L (3.5-5.1); Sodium 134 mmol/L (136-145)
[2020-09-17] MEDS: Propofol 1,000 MG/100 ML VIAL IV PRN (05:47)
[2020-09-17] MEDS: Budesonide 0.5 MG/2 ML NEB NEB SCH ×2 (07:24→19:31)
[2020-09-17 07:30] LABS: Actual Bicarbonate (HCO3a) 40.7 mEq/L (22-28); Base Excess (BEa) 18.1 mEq/L (-2.0 to +3.0); CO2 Tension 39.2 mmHg (35.0-45.0); Calcium, Ionized (arterial) 1.12 mmol/L (1.12-1.30); Carboxyhemoglobin (COHb) 0.2 gm% (0.0-3.0); Hemoglobin (Hb) 11.5 g/dL (12.0-16.0); O2 Tension (PaO2), arterial 114.2 mmHg (> 60.0); Potassium - ABG Lab 3.16 mmol/L (3.70-5.30)
[2020-09-17 07:35] LABS: Puncture Site RBA; pH, Arterial 7.63 (7.35-7.45)
[2020-09-17] MEDS: Enoxaparin Sodium 40 MG/0.4 ML SYRINGE SC SCH (08:56)
[2020-09-17] MEDS: Potassium Chloride 20 MEQ in Premix Bag 1 BAG IVPB SCH ×2 (08:58→14:32)
[2020-09-17] MEDS: Pantoprazole 40 MG VIAL IVP SCH (09:03)
[2020-09-17] MEDS: Valproate Sodium 250 mg/5 ml UD Cup PER TUBE SCH ×2 (09:04→21:11)
[2020-09-17] MEDS: cefTRIAXone\\ROCEPHIN 2 GM in Sodium Chloride 0.9% 100 ML IVPB SCH (10:14)
[2020-09-17] MEDS: Ondansetron ODT 4 MG TAB PO PRN (14:22)
[2020-09-17] MEDS ORDERED: Potassium Chloride 20 MEQ in Premix Bag 1 BAG IVPB SCH (14:30)
[2020-09-18] MEDS: methylPREDNISolone Sod Succ 40 MG VIAL IVP SCH ×4 (00:05→21:02)
[2020-09-18 06:11] LABS: #Basophils 0.1 thou/uL (0.0-0.2); #Lymphocytes 0.4 thou/uL (1.20-3.40); #Monocytes 0.3 thou/uL (0.11-0.59); #Neutrophils 10.3 thou/uL (1.40-6.50); %Basophils 0.6 % (0.0-1.0); %Eosinophils 0.1 % (0.0-10.0); %Lymphocytes 3.3 % (21.0-51.0); %Monocytes 2.9 % (0.0-10.0); %Neutrophils 93.1 % (42.0-75.0); Hemoglobin 10.9 g/dL (12.0-16.0); Mean Corpuscular HGB CONC 32.1 g/dL (32.0-36.0); Mean Corpuscular Hemoglobin 30.8 pg (27.0-31.0); Mean Corpuscular Volume 95.8 fL (78.0-98.0); Mean Platelet Volume 9.1 fL (7.4-10.4); Platelet Count 176 thou/uL (130-400); RBC Distribution Width 12.5 % (11.5-14.5); Red Blood Cell (RBC) Count 3.53 mill/uL (4.20-5.40); White Blood Cell (WBC) Count 11.1 thou/uL (4.8-10.8)
[2020-09-18 06:23] LABS: Anion Gap 13 mmol/L (10-20); BUN (Urea Nitrogen) 20 mg/dL (9.8-20.1); Calc. Creatinine Clearance 60 mL/min (70-130); Carbon Dioxide 36 mmol/L (23-31); Chloride 89 mmol/L (98-107); Glucose 124 mg/dL (83-110); Potassium 4.4 mmol/L (3.5-5.1); Sodium 134 mmol/L (136-145)
[2020-09-18] MEDS: Budesonide 0.5 MG/2 ML NEB NEB SCH ×2 (07:29→19:41)
[2020-09-18] MEDS: Pantoprazole 40 MG VIAL IVP SCH (08:46)
[2020-09-18] MEDS: Valproate Sodium 250 mg/5 ml UD Cup PER TUBE SCH ×2 (08:47→21:01)
[2020-09-18] MEDS: Enoxaparin Sodium 40 MG/0.4 ML SYRINGE SC SCH (08:47)
[2020-09-18] MEDS: cefTRIAXone\\ROCEPHIN 2 GM in Sodium Chloride 0.9% 100 ML IVPB SCH (08:58)
[2020-09-18] MEDS: Cefdinir 300 MG CAP PO SCH (21:02)
[2020-09-19 03:48] LABS: #Lymphocytes 0.5 thou/uL (1.20-3.40); #Monocytes 0.4 thou/uL (0.11-0.59); #Neutrophils 7.2 thou/uL (1.40-6.50); %Basophils 0.1 % (0.0-1.0); %Eosinophils 0.2 % (0.0-10.0); %Lymphocytes 6.6 % (21.0-51.0); %Monocytes 4.7 % (0.0-10.0); %Neutrophils 88.5 % (42.0-75.0); Hemoglobin 11.2 g/dL (12.0-16.0); Mean Corpuscular HGB CONC 33.3 g/dL (32.0-36.0); Mean Corpuscular Hemoglobin 32.1 pg (27.0-31.0); Mean Corpuscular Volume 96.4 fL (78.0-98.0); Mean Platelet Volume 9.1 fL (7.4-10.4); Platelet Count 165 thou/uL (130-400); RBC Distribution Width 12.2 % (11.5-14.5); Red Blood Cell (RBC) Count 3.49 mill/uL (4.20-5.40); White Blood Cell (WBC) Count 8.2 thou/uL (4.8-10.8)
[2020-09-19 04:11] LABS: Anion Gap 15 mmol/L (10-20); BUN (Urea Nitrogen) 26 mg/dL (9.8-20.1); Calc. Creatinine Clearance 55 mL/min (70-130); Carbon Dioxide 31 mmol/L (23-31); Chloride 90 mmol/L (98-107); Glucose 135 mg/dL (83-110); Potassium 4.5 mmol/L (3.5-5.1); Sodium 131 mmol/L (136-145)
[2020-09-19] MEDS: Budesonide 0.5 MG/2 ML NEB NEB SCH ×2 (08:14→19:00)
[2020-09-19] MEDS: Clopidogrel Bisulfate 75 MG TAB PO SCH (09:22)
[2020-09-19] MEDS: Pantoprazole 40 MG GRANULES PACKET PO SCH (09:22)
[2020-09-19] MEDS: methylPREDNISolone Sod Succ 40 MG VIAL IVP SCH ×2 (09:22→20:37)
[2020-09-19] MEDS: Enoxaparin Sodium 40 MG/0.4 ML SYRINGE SC SCH (09:22)
[2020-09-19] MEDS: Cefdinir 300 MG CAP PO SCH ×2 (09:22→21:10)
[2020-09-19] MEDS: Aspirin Chewable 81 MG TAB PO SCH (09:22)
[2020-09-19] MEDS: Valproate Sodium 250 mg/5 ml UD Cup PER TUBE SCH ×2 (09:23→21:10)
[2020-09-19] MEDS ORDERED: Calcium Carbonate 500 MG ChewTAB PO PRN (14:22)
[2020-09-19] MEDS: Ondansetron ODT 4 MG TAB PO PRN (20:37)
[2020-09-20 04:12] VITALS: TEMP 97.8
[2020-09-20 04:33] LABS: #Lymphocytes 0.6 thou/uL (1.20-3.40); #Monocytes 0.2 thou/uL (0.11-0.59); %Eosinophils 0.1 % (0.0-10.0); %Lymphocytes 10.5 % (21.0-51.0); %Monocytes 3.4 % (0.0-10.0); %Neutrophils 85.9 % (42.0-75.0); Hemoglobin 10.3 g/dL (12.0-16.0); Mean Corpuscular HGB CONC 33.4 g/dL (32.0-36.0); Mean Corpuscular Hemoglobin 32.5 pg (27.0-31.0); Mean Corpuscular Volume 97.1 fL (78.0-98.0); Mean Platelet Volume 9.2 fL (7.4-10.4); Platelet Count 173 thou/uL (130-400); RBC Distribution Width 12.1 % (11.5-14.5); Red Blood Cell (RBC) Count 3.18 mill/uL (4.20-5.40); White Blood Cell (WBC) Count 5.8 thou/uL (4.8-10.8)
[2020-09-20 04:42] LABS: BUN (Urea Nitrogen) 22 mg/dL (9.8-20.1); Calc. Creatinine Clearance 60 mL/min (70-130); Calcium 9.8 mg/dL (7.8-10.44); Glucose 128 mg/dL (83-110)
[2020-09-20 04:52] LABS: Anion Gap 18 mmol/L (10-20); Carbon Dioxide 32 mmol/L (23-31); Chloride 89 mmol/L (98-107); Potassium 4.8 mmol/L (3.5-5.1); Sodium 134 mmol/L (136-145)
[2020-09-20] MEDS: Budesonide 0.5 MG/2 ML NEB NEB SCH (08:22)
[2020-09-20] MEDS ORDERED: Valproate Sodium 250 mg/5 ml UD Cup PO SCH ×2 (09:00→21:00)
[2020-09-20] MEDS: Aspirin Chewable 81 MG TAB PO SCH (09:51)
[2020-09-20] MEDS: Cefdinir 300 MG CAP PO SCH (09:51)
[2020-09-20] MEDS: Clopidogrel Bisulfate 75 MG TAB PO SCH (09:51)
[2020-09-20] MEDS: Pantoprazole 40 MG GRANULES PACKET PO SCH ×2 (09:54→09:58)
[2020-09-20] MEDS: methylPREDNISolone Sod Succ 40 MG VIAL IVP SCH (09:54)
[2020-09-20] MEDS: Enoxaparin Sodium 40 MG/0.4 ML SYRINGE SC SCH (10:47)
[2020-09-20 13:39] VITALS: BP 147/67
== END 2020-09-20 14:07 | disposition home or self-care (01) | DRG 208 ==
LOC: ERS 21:04 → 2NO 23:35 → IMCU/EMU 09-15 02:17 → CCU 09-15 03:25 → OBSVTOIN 09-15 19:46 → ONC 09-19 16:34
PROVIDERS: ADMIT Student in an Organized Health Care Education/Training Program; ATTEND Internal Medicine
PROC: 5A1945Z Respiratory Ventilation, 24-96 Consecutive Hours (ICD-10-PCS; principal; 2020-09-15)
PROC: 5A09357 Assistance with Respiratory Ventilation, Less than 24 Consecutive Hours, Continuous Positive Airway Pressure (ICD-10-PCS; 2020-09-15)
PROC: 0BH17EZ Insertion of Endotracheal Airway into Trachea, Via Natural or Artificial Opening (ICD-10-PCS; 2020-09-15)
DX: J44.1 Chronic obstructive pulmonary disease with (acute) exacerbation (principal); J96.21 Acute and chronic respiratory failure with hypoxia; J96.22 Acute and chronic respiratory failure with hypercapnia; G93.41 Metabolic encephalopathy; I48.20 Chronic atrial fibrillation, unspecified; N39.0 Urinary tract infection, site not specified; I47.1 Supraventricular tachycardia; I47.2 Ventricular tachycardia; E87.3 Alkalosis; Z20.822 Contact with and (suspected) exposure to COVID-19; I25.10 Atherosclerotic heart disease of native coronary artery without angina pectoris; G40.909 Epilepsy, unspecified, not intractable, without status epilepticus; R29.6 Repeated falls; R50.9 Fever, unspecified; F41.9 Anxiety disorder, unspecified; Z28.82 Immunization not carried out because of caregiver refusal; Z99.81 Dependence on supplemental oxygen; Z88.1 Allergy status to other antibiotic agents; Z88.5 Allergy status to narcotic agent; Z88.8 Allergy status to other drugs, medicaments and biological substances; Z79.899 Other long term (current) drug therapy; Z79.82 Long term (current) use of aspirin; Z79.02 Long term (current) use of antithrombotics/antiplatelets; Z95.5 Presence of coronary angioplasty implant and graft; Z90.49 Acquired absence of other specified parts of digestive tract; Z90.711 Acquired absence of uterus with remaining cervical stump; Z87.891 Personal history of nicotine dependence; Z78.1 Physical restraint status; Z87.19 Personal history of other diseases of the digestive system; Z98.890 Other specified postprocedural states
CPT/HCPCS: 36415; 36600; 51701; 70450; 70551; 71045; 72125; 80048; 80053; 80061; 80164; 80306; 81001; 81003; 82140; 82550; 82805; 83605; 83735; 83880; 84146; 84484; 85007; 85025; 85027; 86140; 93005; 93306; 94002; 94003; 94640; 94660; 95712; 95819; 95957; 96374; 96375; 96376; C9113; G0378; J0696; J1650; J2405; J2704; J2920; J3475; J3480; J3490; J7620; J7626; Q0162; U0002

== ENCOUNTER 2020-10-08 17:54 | Inpatient (IN) | payer MEDICARE ==
[2020-10-08 18:58] LABS: Bilirubin Negative (Negative); Blood, Urine Negative (Negative); Clarity Clear (Clear); Glucose, Urine (Dipstick) Normal (Negative); Ketone, Urine Negative (Negative); Leukocyte Negative Leu/uL (Negative); Nitrite Negative (Negative); Protein, Urine (Dipstick) Negative (Neg-Trace); Urobilinogen Normal mg/dL (Less than 2); pH, Urine 6.5 (5.0-9.0)
[2020-10-08 19:18] LABS: #Eosinphils 0.1 thou/uL (0.0-0.7); #Lymphocytes 1.6 thou/uL (1.20-3.40); #Monocytes 0.6 thou/uL (0.11-0.59); #Neutrophils 2.2 thou/uL (1.40-6.50); %Basophils 0.5 % (0.0-1.0); %Lymphocytes 35.4 % (21.0-51.0); %Neutrophils 48.1 % (42.0-75.0); Hemoglobin 11.2 g/dL (12.0-16.0); Mean Corpuscular Hemoglobin 32.2 pg (27.0-31.0); Mean Platelet Volume 7.5 fL (7.4-10.4); Platelet Count 108 thou/uL (130-400); Red Blood Cell (RBC) Count 3.48 mill/uL (4.20-5.40); White Blood Cell (WBC) Count 4.6 thou/uL (4.8-10.8)
[2020-10-08 19:19] LABS: ALT (SGPT) Less than 7 U/L (8-55); AST (SGOT) 15 U/L (5-34); Albumin 3.5 g/dL (3.4-4.8); Alkaline Phosphatase 75 U/L (40-110); BUN (Urea Nitrogen) 8 mg/dL (9.8-20.1); Basophilic Stippling SLIGHT = 1-2 cells (100X) (None Seen); Bilirubin, Total 0.3 mg/dL (0.2-1.2); Calc. Creatinine Clearance 0 mL/min (70-130); Globulin 2.8 g/dL (2.4-3.5); Glucose 76 mg/dL (83-110); MDiff Complete? YES; Macrocytosis SLIGHT = 6-15 cells (100X) (0-5/hpf); Platelet Morphology Comment Appears Decreased; Polychromasia SLIGHT = 2-3 cells (100X) (0-2/hpf); Protein, Total 6.3 g/dL (5.8-8.1)
[2020-10-08 19:28] LABS: Anion Gap 17 mmol/L (10-20); Carbon Dioxide 32 mmol/L (23-31); Chloride 93 mmol/L (98-107); Potassium 4.8 mmol/L (3.5-5.1); Sodium 137 mmol/L (136-145)
[2020-10-09] MEDS ORDERED: Ondansetron ODT 4 MG TAB SL PRN (00:30)
[2020-10-09] MEDS ORDERED: Ondansetron PF 4 MG/2 ML Vial IVP PRN ×2 (00:30→04:15)
[2020-10-09] MEDS ORDERED: Acetaminophen 325 MG TAB PO PRN (04:15)
[2020-10-09 06:24] LABS: Hemoglobin 10.6 g/dL (12.0-16.0); Mean Corpuscular HGB CONC 30.9 g/dL (32.0-36.0); Mean Corpuscular Hemoglobin 31.1 pg (27.0-31.0); Mean Platelet Volume 7.4 fL (7.4-10.4); Platelet Count 106 thou/uL (130-400); Red Blood Cell (RBC) Count 3.42 mill/uL (4.20-5.40); White Blood Cell (WBC) Count 4.3 thou/uL (4.8-10.8)
[2020-10-09 06:41] LABS: Band 7 % (5-11); Eosinophils 2 % (0-10); Hypochromia SLIGHT = 6-15 cells (100X) (0-5/hpf); Lymphocytes 9 % (21-51); MDiff Complete? YES; Monocytes 17 % (0-10); Neutrophil 60 % (42-75); Platelet Morphology Comment Appears Decreased; Reactive Lymphocytes 3 % (0-10)
[2020-10-09] MEDS ORDERED: hydrALAZINE 20 MG/ML VIAL SLOW IVP PRN (07:15)
[2020-10-09] MEDS ORDERED: Torsemide 20 MG TAB PO SCH (07:30)
[2020-10-09] MEDS: Clopidogrel Bisulfate 75 MG TAB PO SCH (08:39)
[2020-10-09] MEDS: Aspirin 81 mg Enteric Coated Tablet PO SCH (08:39)
[2020-10-09] MEDS: Losartan 25 MG TAB PO SCH (08:39)
[2020-10-09 08:43] LABS: Anion Gap 13 mmol/L (10-20); BUN (Urea Nitrogen) 9 mg/dL (9.8-20.1); Calc. Creatinine Clearance 74 mL/min (70-130); Calcium 8.9 mg/dL (7.8-10.44); Carbon Dioxide 33 mmol/L (23-31); Chloride 98 mmol/L (98-107); Glucose 82 mg/dL (83-110); Potassium 5.3 mmol/L (3.5-5.1); Sodium 139 mmol/L (136-145)
[2020-10-09] MEDS ORDERED: Divalproex Sodium DR 500 MG TAB PO SCH ×2 (09:00→21:00)
[2020-10-09 11:35] LABS: SARS-CoV-2 NAA Rapid Test Not Detected (NotDetected)
[2020-10-09 11:48] VITALS: BMI 21.1
[2020-10-09] MEDS ORDERED: Zonisamide 25 MG CAP PO SCH (21:00)
[2020-10-09] MEDS ORDERED: Divalproex Sodium 250 MG (DR) TAB PO SCH (21:00)
[2020-10-10 07:49] LABS: Anion Gap 13 mmol/L (10-20); BUN (Urea Nitrogen) 12 mg/dL (9.8-20.1); Calc. Creatinine Clearance 69 mL/min (70-130); Calcium 8.7 mg/dL (7.8-10.44); Carbon Dioxide 35 mmol/L (23-31); Chloride 96 mmol/L (98-107); Glucose 87 mg/dL (83-110); Potassium 4.1 mmol/L (3.5-5.1); Sodium 140 mmol/L (136-145)
[2020-10-10 08:09] LABS: Band 6 % (5-11); Basophilic Stippling SLIGHT = 1-2 cells (100X) (None Seen); Eosinophils 2 % (0-10); Hemoglobin 10.4 g/dL (12.0-16.0); Lymphocytes 27 % (21-51); MDiff Complete? YES; Macrocytosis SLIGHT = 6-15 cells (100X) (0-5/hpf); Mean Corpuscular HGB CONC 32.2 g/dL (32.0-36.0); Mean Corpuscular Hemoglobin 32.5 pg (27.0-31.0); Mean Platelet Volume 7.8 fL (7.4-10.4); Monocytes 18 % (0-10); Neutrophil 47 % (42-75); Platelet Count 108 thou/uL (130-400); Platelet Morphology Comment Appears Decreased; RBC Distribution Width 13.1 % (11.5-14.5); White Blood Cell (WBC) Count 5.7 thou/uL (4.8-10.8)
[2020-10-10] MEDS: Losartan 25 MG TAB PO SCH (08:09)
[2020-10-10] MEDS: Aspirin 81 mg Enteric Coated Tablet PO SCH (08:09)
[2020-10-10] MEDS: Clopidogrel Bisulfate 75 MG TAB PO SCH (08:10)
[2020-10-10 11:42] VITALS: BP 126/55; TEMP 98
== END 2020-10-10 14:28 | disposition home or self-care (01) | DRG 91 ==
LOC: ERS 17:54 → ERHOLD 21:40 → T4-B 23:47 → OBSVTOIN 10-09 17:08
PROVIDERS: ADMIT Internal Medicine; ATTEND Internal Medicine
DX: G25.3 Myoclonus (principal); J96.21 Acute and chronic respiratory failure with hypoxia; J96.22 Acute and chronic respiratory failure with hypercapnia; T42.6X5A Adverse effect of other antiepileptic and sedative-hypnotic drugs, initial encounter; T48.6X5A Adverse effect of antiasthmatics, initial encounter; Z20.822 Contact with and (suspected) exposure to COVID-19; I25.10 Atherosclerotic heart disease of native coronary artery without angina pectoris; G40.909 Epilepsy, unspecified, not intractable, without status epilepticus; I48.91 Unspecified atrial fibrillation; J44.9 Chronic obstructive pulmonary disease, unspecified; I48.0 Paroxysmal atrial fibrillation; G25.0 Essential tremor; Z95.5 Presence of coronary angioplasty implant and graft; Z82.49 Family history of ischemic heart disease and other diseases of the circulatory system; Z87.891 Personal history of nicotine dependence; Z90.49 Acquired absence of other specified parts of digestive tract; Z90.710 Acquired absence of both cervix and uterus; Z79.899 Other long term (current) drug therapy; Z79.82 Long term (current) use of aspirin; Z79.02 Long term (current) use of antithrombotics/antiplatelets
CPT/HCPCS: 36415; 70450; 71045; 71275; 80048; 80053; 81003; 83735; 83880; 84145; 85025; 87086; 87635; 94640; G0378; J7620; Q9967; U0002; U0003; U0005

== ENCOUNTER 2020-11-17 11:41 | Inpatient (IN) | payer MEDICARE ==
[2020-11-17] MEDS ORDERED: methylPREDNISolone Sod Succ/PF 125 MG/2 ML VIAL ONE (12:23)
[2020-11-17] MEDS ORDERED: Magnesium 2 GM/50 ML BAG (IN WATER) ONE (12:24)
[2020-11-17] MEDS ORDERED: Albuterol Sulfate 2.5 mg/3 ml Neb ONE (12:31)
[2020-11-17] MEDS ORDERED: Albuterol Sulfate 2.5 mg/0.5 ml Neb ONE (12:34)
[2020-11-17] MEDS ORDERED: Ipratropium Bromide 2.5 ml Neb ONE (12:37)
[2020-11-17 12:42] LABS: #Eosinphils 0.1 thou/uL (0.0-0.7); #Monocytes 0.8 thou/uL (0.11-0.59); #Neutrophils 7.1 thou/uL (1.40-6.50); %Basophils 0.4 % (0.0-1.0); %Eosinophils 1.1 % (0.0-10.0); %Lymphocytes 19.9 % (21.0-51.0); %Monocytes 7.8 % (0.0-10.0); %Neutrophils 70.7 % (42.0-75.0); Hemoglobin 11.4 g/dL (12.0-16.0); Mean Corpuscular HGB CONC 34.3 g/dL (32.0-36.0); Mean Corpuscular Hemoglobin 33.4 pg (27.0-31.0); Mean Corpuscular Volume 97.3 fL (78.0-98.0); Mean Platelet Volume 7.6 fL (7.4-10.4); Platelet Count 304 thou/uL (130-400); Red Blood Cell (RBC) Count 3.41 mill/uL (4.20-5.40)
[2020-11-17 12:51] LABS: Bilirubin Negative (Negative); Blood, Urine Negative (Negative); Clarity Clear (Clear); Glucose, Urine (Dipstick) Normal (Negative); Ketone, Urine Negative (Negative); Leukocyte Negative Leu/uL (Negative); Nitrite Negative (Negative); Protein, Urine (Dipstick) Negative (Neg-Trace); Specific Gravity, Urine 1.005 (1.002-1.036); Urobilinogen Normal mg/dL (Less than 2); pH, Urine 5.5 (5.0-9.0)
[2020-11-17 13:03] LABS: ALT (SGPT) 9 U/L (8-55); AST (SGOT) 16 U/L (5-34); Albumin 3.9 g/dL (3.4-4.8); Alkaline Phosphatase 88 U/L (40-110); Anion Gap 12 mmol/L (10-20); BUN (Urea Nitrogen) 9 mg/dL (9.8-20.1); Bilirubin, Total 0.3 mg/dL (0.2-1.2); Calc. Creatinine Clearance 0 mL/min (70-130); Calcium 9.1 mg/dL (7.8-10.44); Carbon Dioxide 34 mmol/L (23-31); Chloride 86 mmol/L (98-107); Globulin 3.1 g/dL (2.4-3.5); Glucose 103 mg/dL (83-110); Magnesium 1.8 mg/dL (1.6-2.6); Potassium 4.8 mmol/L (3.5-5.1); Sodium 127 mmol/L (136-145)
[2020-11-17 14:27] LABS: SARS-CoV-2 NAA Rapid Test Not Detected (NotDetected)
[2020-11-17 16:39] VITALS: BMI 23.4
[2020-11-17] MEDS ORDERED: Acetaminophen 500 MG TAB PO PRN (18:11)
[2020-11-17] MEDS ORDERED: Ipratropium Bromide 2.5 ml Neb NEB PRN (18:11)
[2020-11-17] MEDS ORDERED: Ondansetron PF 4 MG/2 ML Vial IVP PRN (18:11)
[2020-11-17] MEDS ORDERED: Ondansetron ODT 4 MG TAB PO PRN (18:11)
[2020-11-17] MEDS ORDERED: hydrALAZINE 20 MG/ML VIAL SLOW IVP PRN (18:11)
[2020-11-17] MEDS: Famotidine 20 MG TAB PO SCH (20:58)
[2020-11-17] MEDS: Zonisamide 25 MG CAP PO SCH (20:59)
[2020-11-17] MEDS: Sodium Chloride 1 GM TAB PO SCH (20:59)
[2020-11-18 05:32] LABS: #Basophils 0.1 thou/uL (0.0-0.2); #Lymphocytes 1.6 thou/uL (1.20-3.40); #Monocytes 0.6 thou/uL (0.11-0.59); #Neutrophils 9.6 thou/uL (1.40-6.50); %Basophils 0.7 % (0.0-1.0); %Eosinophils 0.1 % (0.0-10.0); %Lymphocytes 13.5 % (21.0-51.0); %Monocytes 5.2 % (0.0-10.0); %Neutrophils 80.4 % (42.0-75.0); Hemoglobin 11.1 g/dL (12.0-16.0); Mean Corpuscular HGB CONC 32.8 g/dL (32.0-36.0); Mean Corpuscular Hemoglobin 32.2 pg (27.0-31.0); Mean Corpuscular Volume 98.1 fL (78.0-98.0); Mean Platelet Volume 7.7 fL (7.4-10.4); Platelet Count 324 thou/uL (130-400); RBC Distribution Width 11.9 % (11.5-14.5); Red Blood Cell (RBC) Count 3.44 mill/uL (4.20-5.40)
[2020-11-18 05:54] LABS: Phosphorus 3.5 mg/dL (2.3-4.7)
[2020-11-18 05:55] LABS: BUN (Urea Nitrogen) 11 mg/dL (9.8-20.1); Calc. Creatinine Clearance 58 mL/min (70-130); Calcium 9.6 mg/dL (7.8-10.44); Glucose 106 mg/dL (83-110)
[2020-11-18 06:05] LABS: Anion Gap 19 mmol/L (10-20); Carbon Dioxide 32 mmol/L (23-31); Chloride 87 mmol/L (98-107); Potassium 5.9 mmol/L (3.5-5.1); Sodium 132 mmol/L (136-145)
[2020-11-18] MEDS: Clopidogrel Bisulfate 75 MG TAB PO SCH (08:58)
[2020-11-18] MEDS: Aspirin Chewable 81 MG TAB PO SCH (08:58)
[2020-11-18] MEDS: Torsemide 20 MG TAB PO SCH (08:58)
[2020-11-18] MEDS: Losartan 25 MG TAB PO SCH (08:59)
[2020-11-18] MEDS: Famotidine 20 MG TAB PO SCH ×2 (08:59→20:28)
[2020-11-18] MEDS: Sodium Chloride 1 GM TAB PO SCH ×2 (08:59→20:28)
[2020-11-18] MEDS: Ferrous Sulfate 325 MG TAB PO SCH (08:59)
[2020-11-18] MEDS ORDERED: Potassium Chloride 20 MEQ TAB PO SCH (09:00)
[2020-11-18] MEDS ORDERED: Calcium Gluc 4.6 MEQ/10 ML (100 MG/ML) SLOW IVP ONE (14:41)
[2020-11-18] MEDS ORDERED: Albuterol Sulfate 2.5 mg/3 ml Neb NEB SCH (16:15)
[2020-11-18] MEDS ORDERED: Calcium Gluconate 4.6 MEQ in Sodium Chloride 0.9% 100 ML IVPB SCH (16:30)
[2020-11-18] MEDS: Zonisamide 25 MG CAP PO SCH (20:28)
[2020-11-19] MEDS: Clopidogrel Bisulfate 75 MG TAB PO SCH (08:51)
[2020-11-19] MEDS: Famotidine 20 MG TAB PO SCH (08:51)
[2020-11-19] MEDS: Aspirin Chewable 81 MG TAB PO SCH (08:51)
[2020-11-19] MEDS: Sodium Chloride 1 GM TAB PO SCH (08:52)
[2020-11-19] MEDS ORDERED: Regadenoson 0.4 MG/5 ML SYRINGE ONE (08:52)
[2020-11-19] MEDS: Ferrous Sulfate 325 MG TAB PO SCH (08:52)
[2020-11-19] MEDS: Torsemide 20 MG TAB PO SCH (08:54)
[2020-11-19 11:45] LABS: ALT (SGPT) 8 U/L (8-55); AST (SGOT) 15 U/L (5-34); Albumin 4.1 g/dL (3.4-4.8); Alkaline Phosphatase 85 U/L (40-110); Anion Gap 16 mmol/L (10-20); BUN (Urea Nitrogen) 13 mg/dL (9.8-20.1); Bilirubin, Total 0.3 mg/dL (0.2-1.2); Calc. Creatinine Clearance 53 mL/min (70-130); Calcium 9.6 mg/dL (7.8-10.44); Carbon Dioxide 37 mmol/L (23-31); Chloride 87 mmol/L (98-107); Globulin 3.1 g/dL (2.4-3.5); Glucose 111 mg/dL (83-110); Potassium 4.3 mmol/L (3.5-5.1); Protein, Total 7.2 g/dL (5.8-8.1); Sodium 136 mmol/L (136-145)
[2020-11-19] MEDS: Losartan 25 MG TAB PO SCH (12:02)
[2020-11-19 15:57] VITALS: BP 121/61
[2020-11-19 17:00] VITALS: TEMP 98.3
== END 2020-11-19 17:15 | disposition home or self-care (01) | DRG 641 ==
LOC: ERS 11:41 → 2SW 14:06 → OBSVTOIN 11-19 10:30
PROVIDERS: ADMIT Family Medicine; ATTEND Emergency Medicine
DX: E87.1 Hypo-osmolality and hyponatremia (principal); J96.11 Chronic respiratory failure with hypoxia; I50.32 Chronic diastolic (congestive) heart failure; J96.12 Chronic respiratory failure with hypercapnia; E87.5 Hyperkalemia; I25.10 Atherosclerotic heart disease of native coronary artery without angina pectoris; D64.9 Anemia, unspecified; J44.9 Chronic obstructive pulmonary disease, unspecified; Z20.822 Contact with and (suspected) exposure to COVID-19; Z99.81 Dependence on supplemental oxygen; Z95.5 Presence of coronary angioplasty implant and graft; Z98.890 Other specified postprocedural states; Z79.82 Long term (current) use of aspirin; Z79.899 Other long term (current) drug therapy; Z88.1 Allergy status to other antibiotic agents; Z88.8 Allergy status to other drugs, medicaments and biological substances; Z87.891 Personal history of nicotine dependence; Z90.49 Acquired absence of other specified parts of digestive tract; Z90.711 Acquired absence of uterus with remaining cervical stump; Z79.02 Long term (current) use of antithrombotics/antiplatelets
CPT/HCPCS: 0240U; 36415; 71045; 78452; 80048; 80053; 81003; 82607; 82746; 83605; 83735; 83880; 84100; 84443; 84484; 85025; 87040; 87086; 93005; 93017; 94640; 94760; 96365; 96367; 96375; A9500; G0378; J2001; J2785; J2930; J3475; J3490; J7611

== ENCOUNTER 2020-12-26 17:27 | Emergency (ER) | payer MEDICARE | END 2020-12-26 18:30 | disposition home or self-care (01) | LOC: ERS 17:27 | DX: M25.552 Pain in left hip (principal); X50.9XXA Other and unspecified overexertion or strenuous movements or postures, initial encounter; Z79.899 Other long term (current) drug therapy; Z79.82 Long term (current) use of aspirin; I48.91 Unspecified atrial fibrillation; I25.10 Atherosclerotic heart disease of native coronary artery without angina pectoris; J44.9 Chronic obstructive pulmonary disease, unspecified; Z87.891 Personal history of nicotine dependence | CPT/HCPCS: 99283 ==

== ENCOUNTER 2022-10-04 02:13 | Emergency (ER) | payer MEDICARE ==
[2022-10-04 03:22] LABS: #Basophils 0.1 thou/uL (0.0-0.2); #Eosinphils 0.1 thou/uL (0.0-0.7); #Monocytes 0.6 thou/uL (0.11-0.59); %Basophils 0.6 % (0.0-1.0); %Eosinophils 1.3 % (0.0-10.0); %Monocytes 7.9 % (0.0-10.0); %Neutrophils 62.8 % (42.0-75.0); Hemoglobin 11.4 g/dL (12.0-16.0); Mean Corpuscular HGB CONC 29.2 g/dL (32.0-36.0); Mean Corpuscular Hemoglobin 30.6 pg (27.0-31.0); Mean Corpuscular Volume 104.8 fl (78.0-98.0); Mean Platelet Volume 10.7 fL (7.4-10.4); Platelet Count 175 10x3/uL (130-400); RBC Distribution Width 11.9 % (11.5-14.5); Red Blood Cell (RBC) Count 3.72 mill/uL (4.20-5.40)
[2022-10-04 03:39] LABS: Bilirubin Negative (Negative); Blood, Urine 3+ (Negative); Clarity Extra Turbid (Clear); Glucose, Urine (Dipstick) Normal (Negative); Ketone, Urine Negative (Negative); Leukocyte 500 Leu/uL (Negative); Nitrite Negative (Negative); Protein, Urine (Dipstick) 100 mg/dL (Neg-Trace); Specific Gravity, Urine 1.015 (1.002-1.036); pH, Urine 6.5 (5.0-9.0)
[2022-10-04 03:45] LABS: ALT (SGPT) 7 U/L (8-55); AST (SGOT) 15 U/L (5-34); Albumin 3.9 g/dL (3.4-4.8); Alkaline Phosphatase 85 U/L (40-110); BUN (Urea Nitrogen) 15 mg/dL (9.8-20.1); Bilirubin, Total 0.2 mg/dL (0.2-1.2); CK (CPK) 12 U/L (29-168); Calc. Creatinine Clearance 0 mL/min (70-130); Calcium 10.2 mg/dL (7.8-10.44); Estimated GFR 86; Globulin 3.1 g/dL (2.4-3.5); Glucose 96 mg/dL (83-110); Lipase 28 U/L (8-78)
[2022-10-04 03:48] LABS: Bacteria/HPF 1+ HPF (None Seen)
[2022-10-04 03:49] LABS: Renal Epithelial 0-3 HPF (None Seen); Transitional Epithelial 0-3 HPF (None Seen)
[2022-10-04 03:55] LABS: Anion Gap 19 mmol/L (10-20); Carbon Dioxide 33 mmol/L (23-31); Chloride 97 mmol/L (98-107); Potassium 4.1 mmol/L (3.5-5.1); Sodium 145 mmol/L (136-145)
[2022-10-04] MEDS ORDERED: cefTRIAXone (ROCEPHIN) 2 GM VIAL ONE (04:08)
== END 2022-10-04 10:31 | disposition home or self-care (01) ==
LOC: ERS 02:13
DX: R53.1 Weakness (principal); N39.0 Urinary tract infection, site not specified; I25.10 Atherosclerotic heart disease of native coronary artery without angina pectoris; J44.9 Chronic obstructive pulmonary disease, unspecified; Z87.891 Personal history of nicotine dependence; Z79.82 Long term (current) use of aspirin
CPT/HCPCS: 36415; 51701; 71045; 80053; 81003; 81015; 82550; 83690; 84484; 85025; 87040; 87077; 87086; 87186; 93005; 96365; J0696

== ENCOUNTER 2022-12-31 15:32 | Inpatient (IN) | payer MEDICARE ==
[~2022-12-31 15:32] MED LIST changes: -Iopamidol-370 76% 500 ML 1 ML ONE; +Iopamidol-370 76% 500 ML MDV (1 ML CHARGE) ONE
[2022-12-31] MEDS ORDERED: Albuterol 2.5 MG/0.5 ML NEB ONE (15:51)
[2022-12-31] MEDS ORDERED: Cefepime 2 GM VIAL ONE (16:13)
[2022-12-31 17:12] LABS: #Monocytes 0.2 thou/uL (0.11-0.59); %Basophils 0.5 % (0.0-1.0); %Eosinophils 0.3 % (0.0-10.0); %Lymphocytes 18.6 % (21.0-51.0); %Monocytes 2.3 % (0.0-10.0); %Neutrophils 77.9 % (42.0-75.0); Hematocrit 37.9 % (36.0-47.0); Mean Corpuscular Hemoglobin 30.9 pg (27.0-31.0); Mean Corpuscular Volume 106.5 fl (78.0-98.0); Mean Platelet Volume 11.3 fL (7.4-10.4); Platelet Count 173 10x3/uL (130-400); Red Blood Cell (RBC) Count 3.56 mill/uL (4.20-5.40); White Blood Cell (WBC) Count 7.7 10x3/uL (4.8-10.8)
[2022-12-31 17:36] LABS: ALT (SGPT) Less than 7 U/L (8-55); AST (SGOT) 13 U/L (5-34); Albumin 3.9 g/dL (3.4-4.8); Alkaline Phosphatase 148 U/L (40-110); Anion Gap 14 mmol/L (10-20); BUN (Urea Nitrogen) 11 mg/dL (9.8-20.1); Bilirubin, Total 0.3 mg/dL (0.2-1.2); Calc. Creatinine Clearance 0 mL/min (70-130); Carbon Dioxide 36 mmol/L (23-31); Chloride 97 mmol/L (98-107); Estimated GFR 83; Glucose 187 mg/dL (83-110); Potassium 3.2 mmol/L (3.5-5.1); Protein, Total 6.9 g/dL (5.8-8.1); Sodium 144 mmol/L (136-145)
[2022-12-31 17:47] LABS: Troponin I Less than 0.010 ng/mL (< 0.028)
[2022-12-31 20:06] LABS: Actual Bicarbonate (HCO3a) 32.5 mEq/L (22-28); Analyzer IN Cardio ER; Calcium, Ionized (arterial) 1.12 mmol/L (1.12-1.30); Carboxyhemoglobin (COHb) 0.9 gm% (0.0-3.0); Hematocrit-ABG 31 % (36.0-47.0); Hemoglobin (Hb) 10.7 g/dL (12.0-16.0); O2 Tension (PaO2), arterial 179.9 mmHg (> 60.0); Potassium - ABG Lab 2.95 mmol/L (3.70-5.30); pH, Arterial 7.271 (7.35-7.45)
[2022-12-31 20:09] LABS: ALV-art Gradient -70.635 mmHg (0-20); Puncture Site RBA
[2022-12-31] MEDS ORDERED: Acetaminophen 325 MG TAB PO PRN (20:16)
[2022-12-31] MEDS ORDERED: Ondansetron PF 4 MG/2 ML Vial IVP PRN (20:16)
[2022-12-31] MEDS ORDERED: Ondansetron ODT 4 MG TAB PO PRN (20:16)
[2022-12-31] MEDS ORDERED: Acetaminophen 650 MG Suppository PR PRN (20:16)
[2022-12-31] MEDS ORDERED: Ipratropium/Albuterol 3 ML NEB NEB PRN ×2 (21:32→22:37)
[2022-12-31] MEDS ORDERED: Electrolyte Replacement Protocol 1 EACH FS PRN (22:30)
[2022-12-31] MEDS ORDERED: clonazePAM 0.5 MG TAB PO PRN (22:35)
[2022-12-31] MEDS: Doxycycline 100 MG in Sodium Chloride 0.9% 100 ML IVPB SCH (22:35)
[2022-12-31 23:30] LABS: Magnesium 2.3 mg/dL (1.6-2.6)
[2022-12-31] MEDS ORDERED: Potassium Chloride 20 MEQ TAB PO SCH (23:30)
[2022-12-31 23:43] LABS: Troponin I Less than 0.010 ng/mL (< 0.028)
[2023-01-01] MEDS: Ipratropium/Albuterol 3 ML NEB NEB SCH ×7 (00:49→22:18)
[2023-01-01 03:42] LABS: Actual Bicarbonate (HCO3v) 35.2 mEq/L (22-28); Base Excess 9.3 mEq/L (-2.0 to +3.0); Calcium, Ionized (venous) 1.08 mmol/L (1.16-1.32); Chloride (VBG) 100 mmol/L (98-106); Hematocrit-VBG 31 % (36.0-47.0); Hemoglobin (Hb) 10.7 g/dL (11.7-16.1); Potassium (VBG) 3.99 mmol/L (3.70-5.30); Sodium 140.1 mmol/L (133-146); pH (venous) 7.421 (7.32-7.43)
[2023-01-01 03:51] LABS: #Monocytes 0.3 thou/uL (0.11-0.59); #Neutrophils 5.1 thou/uL (1.40-6.50); %Lymphocytes 8.3 % (21.0-51.0); %Monocytes 5.2 % (0.0-10.0); Hematocrit 30.8 % (36.0-47.0); Hemoglobin 9.2 g/dL (12.0-16.0); Mean Corpuscular HGB CONC 29.9 g/dL (32.0-36.0); Mean Corpuscular Hemoglobin 30.9 pg (27.0-31.0); Mean Corpuscular Volume 103.4 fl (78.0-98.0); Mean Platelet Volume 11.5 fL (7.4-10.4); Platelet Count 170 10x3/uL (130-400); RBC Distribution Width 12.2 % (11.5-14.5); Red Blood Cell (RBC) Count 2.98 mill/uL (4.20-5.40); White Blood Cell (WBC) Count 5.9 10x3/uL (4.8-10.8)
[2023-01-01] MEDS ORDERED: Cefepime 2 GM in Sodium Chloride 0.9% 100 ML IVPB SCH (04:00)
[2023-01-01 04:17] LABS: Anion Gap 12 mmol/L (10-20); BUN (Urea Nitrogen) 11 mg/dL (9.8-20.1); Calc. Creatinine Clearance 67 mL/min (70-130); Carbon Dioxide 33 mmol/L (23-31); Chloride 100 mmol/L (98-107); Estimated GFR 89; Glucose 117 mg/dL (83-110); Potassium 3.9 mmol/L (3.5-5.1); Sodium 141 mmol/L (136-145)
[2023-01-01 04:20] LABS: Troponin I 0.018 ng/mL (< 0.028)
[2023-01-01] MEDS: Mometasone 200 MCG/Formoterol 5 MCG 120 PUFF INHALER INH SCH ×2 (07:18→18:47)
[2023-01-01] MEDS ORDERED: predniSONE 5 MG TAB PO SCH (08:00)
[2023-01-01 08:17] VITALS: BMI 23.9
[2023-01-01] MEDS ORDERED: Famotidine/PF 20 mg/2ml Vial SLOW IVP SCH (09:00)
[2023-01-01] MEDS ORDERED: predniSONE 20 MG TAB PO SCH (09:15)
[2023-01-01] MEDS: Doxycycline 100 MG in Sodium Chloride 0.9% 100 ML IVPB SCH ×2 (09:36→21:00)
[2023-01-01 12:46] LABS: CO2 Tension 72.3 mmHg (35.0-45.0)
[2023-01-01] MEDS ORDERED: Cefepime 1 GM in Sodium Chloride 0.9% 100 ML IVPB SCH (16:00)
[2023-01-01 16:50] VITALS: BP 123/68
[2023-01-01] MEDS: Zonisamide 100 MG CAP PO SCH (21:00)
[2023-01-01] MEDS: Famotidine 20 MG TAB PO SCH (21:00)
[2023-01-02] MEDS: Ipratropium/Albuterol 3 ML NEB NEB SCH ×3 (04:11→11:03)
[2023-01-02] MEDS: Mometasone 200 MCG/Formoterol 5 MCG 120 PUFF INHALER INH SCH (07:18)
[2023-01-02] MEDS ORDERED: predniSONE 20 MG TAB PO SCH (08:00)
[2023-01-02] MEDS: Famotidine 20 MG TAB PO SCH (08:56)
[2023-01-02] MEDS: Doxycycline 100 MG in Sodium Chloride 0.9% 100 ML IVPB SCH (09:00)
[2023-01-02] MEDS: Zonisamide 100 MG CAP PO SCH (09:00)
[2023-01-02] MEDS ORDERED: Clopidogrel Bisulfate 75 MG TAB PO SCH (09:00)
[2023-01-02] MEDS ORDERED: Multivitamin W/ Minerals 1 TAB PO SCH (09:00)
[2023-01-02] MEDS ORDERED: Aspirin Chewable 81 MG TAB PO SCH (09:00)
[2023-01-02] MEDS ORDERED: Cholecalciferol 1,000 UNITS (25 MCG) TAB PO SCH (09:00)
[2023-01-02 10:10] VITALS: TEMP 97.8
[2023-01-04] MEDS ORDERED: Ferrous Sulfate 325 MG TAB PO SCH (08:00)
[2023-01-04] MEDS ORDERED: Potassium Chloride 20 MEQ TAB PO SCH (09:00)
[2023-01-04] MEDS ORDERED: Torsemide 20 MG TAB PO SCH (09:00)
== END 2023-01-02 13:41 | disposition home or self-care (01) | DRG 193 ==
LOC: ERS 15:32 → IMCU/EMU 20:16
PROVIDERS: ADMIT Student in an Organized Health Care Education/Training Program; ATTEND Internal Medicine
DX: J18.9 Pneumonia, unspecified organism (principal); G93.41 Metabolic encephalopathy; J96.21 Acute and chronic respiratory failure with hypoxia; J96.22 Acute and chronic respiratory failure with hypercapnia; J44.1 Chronic obstructive pulmonary disease with (acute) exacerbation; E87.29 Other acidosis; I48.91 Unspecified atrial fibrillation; I25.2 Old myocardial infarction; I25.10 Atherosclerotic heart disease of native coronary artery without angina pectoris; E87.6 Hypokalemia; S22.089D Unspecified fracture of T11-T12 vertebra, subsequent encounter for fracture with routine healing; Z88.1 Allergy status to other antibiotic agents; K21.9 Gastro-esophageal reflux disease without esophagitis; I10 Essential (primary) hypertension; Z90.49 Acquired absence of other specified parts of digestive tract; Z98.890 Other specified postprocedural states; Z79.82 Long term (current) use of aspirin; Z79.899 Other long term (current) drug therapy; Z88.8 Allergy status to other drugs, medicaments and biological substances; Z87.891 Personal history of nicotine dependence
CPT/HCPCS: 36415; 36600; 71045; 71275; 80048; 82805; 83735; 83880; 84145; 85025; 87040; 93005; 94640; 96365; J0692; J1650; J3490; J7512; J7611; J7620; Q9967; S0028

== ENCOUNTER 2023-01-08 17:14 | Inpatient (IN) | payer MEDICARE ==
[2023-01-08 17:53] LABS: Bacteria/HPF None Seen HPF (None Seen); Bilirubin Negative (Negative); Blood, Urine Negative (Negative); CAUTI Indications for Culture Alt mental st,lethar; Clarity Clear (Clear); Glucose, Urine (Dipstick) Normal (Negative); Ketone, Urine Negative (Negative); Leukocyte Negative Leu/uL (Negative); Nitrite Negative (Negative); Protein, Urine (Dipstick) Negative (Neg-Trace); RBC/HPF 0-3 HPF (0-3); Specific Gravity, Urine 1.007 (1.002-1.036); Squamous Epithelial None Seen HPF (0-3); Urobilinogen Normal mg/dL (Less than 2); WBC/HPF None Seen HPF (0-3)
[2023-01-08 17:55] LABS: Urine Culture Reflex No No
[2023-01-08 18:16] LABS: #Eosinphils 0.2 thou/uL (0.0-0.7); #Monocytes 0.8 thou/uL (0.11-0.59); #Neutrophils 4.6 thou/uL (1.40-6.50); %Basophils 0.3 % (0.0-1.0); %Lymphocytes 24.1 % (21.0-51.0); %Monocytes 11.2 % (0.0-10.0); %Neutrophils 61.7 % (42.0-75.0); Hematocrit 36.3 % (36.0-47.0); Hemoglobin 10.6 g/dL (12.0-16.0); Mean Corpuscular HGB CONC 29.2 g/dL (32.0-36.0); Mean Corpuscular Hemoglobin 31.3 pg (27.0-31.0); Mean Corpuscular Volume 107.1 fl (78.0-98.0); Platelet Count 228 10x3/uL (130-400); RBC Distribution Width 12.6 % (11.5-14.5); Red Blood Cell (RBC) Count 3.39 mill/uL (4.20-5.40); White Blood Cell (WBC) Count 7.5 10x3/uL (4.8-10.8)
[2023-01-08 18:53] LABS: ALT (SGPT) 9 U/L (8-55); AST (SGOT) 16 U/L (5-34); Albumin 3.6 g/dL (3.4-4.8); Alkaline Phosphatase 121 U/L (40-110); Anion Gap 14 mmol/L (10-20); BUN (Urea Nitrogen) 10 mg/dL (9.8-20.1); Bilirubin, Total 0.3 mg/dL (0.2-1.2); Calc. Creatinine Clearance 0 mL/min (70-130); Calcium 9.1 mg/dL (7.8-10.44); Carbon Dioxide 32 mmol/L (23-31); Chloride 98 mmol/L (98-107); Estimated GFR 87; Globulin 2.9 g/dL (2.4-3.5); Glucose 92 mg/dL (83-110); Potassium 3.9 mmol/L (3.5-5.1); Protein, Total 6.5 g/dL (5.8-8.1); Sodium 140 mmol/L (136-145)
[2023-01-08 22:34] LABS: Actual Bicarbonate (HCO3v) 33.3 mEq/L (22-28); Base Excess 13.1 mEq/L (-2.0 to +3.0); Calcium, Ionized (venous) 0.94 mmol/L (1.16-1.32); Chloride (VBG) 98 mmol/L (98-106); Hematocrit-VBG 36 % (36.0-47.0); Hemoglobin (Hb) 12.3 g/dL (11.7-16.1); Potassium (VBG) 3.94 mmol/L (3.70-5.30); Sodium 139.5 mmol/L (133-146)
[2023-01-08] MEDS ORDERED: Ondansetron ODT 4 MG TAB PO PRN (22:47)
[2023-01-08] MEDS ORDERED: Senokot S 8.6-50 MG TAB PO PRN (22:47)
[2023-01-09 00:07] VITALS: BMI 22.9
[2023-01-09 06:47] LABS: #Eosinphils 0.2 thou/uL (0.0-0.7); #Monocytes 0.8 thou/uL (0.11-0.59); #Neutrophils 3.5 thou/uL (1.40-6.50); %Basophils 0.5 % (0.0-1.0); %Eosinophils 2.6 % (0.0-10.0); %Lymphocytes 26.3 % (21.0-51.0); %Monocytes 13.3 % (0.0-10.0); %Neutrophils 56.7 % (42.0-75.0); Hematocrit 36.3 % (36.0-47.0); Hemoglobin 10.8 g/dL (12.0-16.0); Mean Corpuscular HGB CONC 29.8 g/dL (32.0-36.0); Mean Corpuscular Volume 104.3 fl (78.0-98.0); Mean Platelet Volume 11.6 fL (7.4-10.4); Platelet Count 217 10x3/uL (130-400); RBC Distribution Width 12.5 % (11.5-14.5); Red Blood Cell (RBC) Count 3.48 mill/uL (4.20-5.40); White Blood Cell (WBC) Count 6.2 10x3/uL (4.8-10.8)
[2023-01-09 07:13] LABS: Anion Gap 13 mmol/L (10-20); BUN (Urea Nitrogen) 13 mg/dL (9.8-20.1); Calc. Creatinine Clearance 61 mL/min (70-130); Calcium 9.2 mg/dL (7.8-10.44); Carbon Dioxide 35 mmol/L (23-31); Chloride 97 mmol/L (98-107); Estimated GFR 88; Glucose 90 mg/dL (83-110); Potassium 4.3 mmol/L (3.5-5.1); Sodium 141 mmol/L (136-145)
[2023-01-09] MEDS: Clopidogrel Bisulfate 75 MG TAB PO SCH (09:34)
[2023-01-09] MEDS: Aspirin Chewable 81 MG TAB PO SCH (09:34)
[2023-01-09] MEDS: Zonisamide 100 MG CAP PO SCH ×2 (10:29→20:40)
[2023-01-09] MEDS: Acetaminophen 325 MG TAB PO PRN (22:19)
[2023-01-10] MEDS: Zonisamide 100 MG CAP PO SCH ×2 (08:26→21:16)
[2023-01-10] MEDS: Aspirin Chewable 81 MG TAB PO SCH (08:26)
[2023-01-10] MEDS: Clopidogrel Bisulfate 75 MG TAB PO SCH (08:26)
[2023-01-10] MEDS ORDERED: Polyethylene Glycol 3350 17 GM Packet PO SCH (15:15)
[2023-01-10] MEDS: Senokot S 8.6-50 MG TAB PO SCH (21:16)
[2023-01-11] MEDS: Senokot S 8.6-50 MG TAB PO SCH ×2 (09:35→21:18)
[2023-01-11] MEDS: Zonisamide 100 MG CAP PO SCH ×2 (09:35→21:19)
[2023-01-11] MEDS: Ferrous Sulfate 325 MG TAB PO SCH (09:35)
[2023-01-11] MEDS: Clopidogrel Bisulfate 75 MG TAB PO SCH (09:35)
[2023-01-11] MEDS: Potassium Chloride 20 MEQ TAB PO SCH (09:35)
[2023-01-11] MEDS: Aspirin Chewable 81 MG TAB PO SCH (09:36)
[2023-01-11] MEDS: Torsemide 20 MG TAB PO SCH (09:36)
[2023-01-11] MEDS: Polyethylene Glycol 3350 17 GM Packet PO SCH (09:36)
[2023-01-12 06:52] LABS: Hemoglobin 9.6 g/dL (12.0-16.0); Platelet Count 127 10x3/uL (130-400)
[2023-01-12] MEDS: Polyethylene Glycol 3350 17 GM Packet PO SCH (08:36)
[2023-01-12] MEDS: Senokot S 8.6-50 MG TAB PO SCH ×2 (08:36→20:56)
[2023-01-12] MEDS: Zonisamide 100 MG CAP PO SCH ×2 (08:37→20:55)
[2023-01-12] MEDS: Aspirin Chewable 81 MG TAB PO SCH (08:37)
[2023-01-12] MEDS: Clopidogrel Bisulfate 75 MG TAB PO SCH (08:37)
[2023-01-13] MEDS: Polyethylene Glycol 3350 17 GM Packet PO SCH (08:45)
[2023-01-13] MEDS: Clopidogrel Bisulfate 75 MG TAB PO SCH (08:46)
[2023-01-13] MEDS: Potassium Chloride 20 MEQ TAB PO SCH (08:46)
[2023-01-13] MEDS: Torsemide 20 MG TAB PO SCH (08:46)
[2023-01-13] MEDS: Ferrous Sulfate 325 MG TAB PO SCH (08:46)
[2023-01-13] MEDS: Senokot S 8.6-50 MG TAB PO SCH ×2 (08:46→21:21)
[2023-01-13] MEDS: Aspirin Chewable 81 MG TAB PO SCH (08:46)
[2023-01-13] MEDS: Zonisamide 100 MG CAP PO SCH ×2 (08:46→21:21)
[2023-01-13 10:10] LABS: #Basophils 0.1 thou/uL (0.0-0.2); #Eosinphils 0.2 thou/uL (0.0-0.7); #Monocytes 0.8 thou/uL (0.11-0.59); Hematocrit 34.4 % (36.0-47.0); RBC Distribution Width 12.2 % (11.5-14.5)
[2023-01-13 10:13] LABS: #Neutrophils 5.3 thou/uL (1.40-6.50); %Basophils 0.9 % (0.0-1.0); %Eosinophils 2.6 % (0.0-10.0); %Lymphocytes 19.7 % (21.0-51.0); %Monocytes 10.4 % (0.0-10.0); Hemoglobin 10.2 g/dL (12.0-16.0); Mean Corpuscular HGB CONC 29.7 g/dL (32.0-36.0); Mean Corpuscular Hemoglobin 31.7 pg (27.0-31.0); Mean Corpuscular Volume 106.8 fl (78.0-98.0); Mean Platelet Volume 11.5 fL (7.4-10.4); Platelet Count 147 10x3/uL (130-400); Red Blood Cell (RBC) Count 3.22 mill/uL (4.20-5.40); White Blood Cell (WBC) Count 8.1 10x3/uL (4.8-10.8)
[2023-01-13 10:16] LABS: Actual Bicarbonate (HCO3a) 47.6 mEq/L (22-28); Base Excess (BEa) 17.5 mEq/L (-2.0 to +3.0); Calcium, Ionized (arterial) 1.23 mmol/L (1.12-1.30); Carboxyhemoglobin (COHb) 0.2 gm% (0.0-3.0); Hematocrit-ABG 31 % (36.0-47.0); Hemoglobin (Hb) 10.5 g/dL (12.0-16.0); O2 Tension (PaO2), arterial 120.5 mmHg (> 60.0); Potassium - ABG Lab 3.83 mmol/L (3.70-5.30); pH, Arterial 7.298 (7.35-7.45)
[2023-01-13 10:21] LABS: Lactic Acid 0.7 mmol/L (0.5-2.2)
[2023-01-13 10:42] LABS: Troponin I Less than 0.010 ng/mL (< 0.028)
[2023-01-13 10:51] LABS: CO2 Tension 99.4 mmHg (35.0-45.0)
[2023-01-13 10:53] LABS: Puncture Site RBA
[2023-01-13 10:59] LABS: ALT (SGPT) Less than 7 U/L (8-55); AST (SGOT) 13 U/L (5-34); Albumin 3.3 g/dL (3.4-4.8); Alkaline Phosphatase 98 U/L (40-110); Anion Gap 14 mmol/L (10-20); BUN (Urea Nitrogen) 11 mg/dL (9.8-20.1); Bilirubin, Total 0.3 mg/dL (0.2-1.2); Calc. Creatinine Clearance 55 mL/min (70-130); Calcium 9.7 mg/dL (7.8-10.44); Carbon Dioxide 37 mmol/L (23-31); Chloride 91 mmol/L (98-107); Estimated GFR 86; Globulin 2.7 g/dL (2.4-3.5); Glucose 125 mg/dL (83-110); Potassium 4.4 mmol/L (3.5-5.1); Sodium 138 mmol/L (136-145)
[2023-01-13] MEDS ORDERED: Magnesium 5 GM/10 ML VIAL ONE ×2 (13:24→13:26)
[2023-01-13] MEDS ORDERED: Magnesium Sulfate 3 GM in Sodium Chloride 0.9% 100 ML IVPB SCH (13:30)
[2023-01-13] MEDS ORDERED: Meropenem 1 GM in Sodium Chloride 0.9% 100 ML IVPB SCH ×2 (13:45→14:00)
[2023-01-13] MEDS ORDERED: Ipratropium/Albuterol 3 ML NEB NEB SCH ×2 (13:45→14:30)
[2023-01-13] MEDS: methylPREDNISolone Sod Succ 40 MG VIAL IVP SCH (17:53)
[2023-01-13] MEDS: Ipratropium/Albuterol 3 ML NEB NEB SCH ×2 (18:17→22:24)
[2023-01-13] MEDS: Meropenem 1 GM in Sodium Chloride 0.9% 100 ML IVPB SCH (21:21)
[2023-01-14] MEDS: methylPREDNISolone Sod Succ 40 MG VIAL IVP SCH ×4 (00:19→17:17)
[2023-01-14] MEDS: Ipratropium/Albuterol 3 ML NEB NEB SCH ×7 (02:10→22:28)
[2023-01-14] MEDS: Meropenem 1 GM in Sodium Chloride 0.9% 100 ML IVPB SCH ×3 (05:30→21:53)
[2023-01-14] MEDS: Polyethylene Glycol 3350 17 GM Packet PO SCH (08:43)
[2023-01-14] MEDS: Clopidogrel Bisulfate 75 MG TAB PO SCH (08:43)
[2023-01-14] MEDS: Senokot S 8.6-50 MG TAB PO SCH ×2 (08:43→19:52)
[2023-01-14] MEDS: Aspirin Chewable 81 MG TAB PO SCH (08:44)
[2023-01-14] MEDS: Zonisamide 100 MG CAP PO SCH ×2 (09:07→19:52)
[2023-01-14] MEDS: Acetaminophen 325 MG TAB PO PRN (19:43)
[2023-01-15] MEDS: Calcium Carbonate 500 MG ChewTAB PO PRN ×2 (00:38→21:10)
[2023-01-15] MEDS: methylPREDNISolone Sod Succ 40 MG VIAL IVP SCH ×4 (00:39→17:13)
[2023-01-15] MEDS: Ibuprofen 200 MG TAB PO PRN ×2 (00:44→21:03)
[2023-01-15] MEDS: Ipratropium/Albuterol 3 ML NEB NEB SCH ×6 (02:13→22:49)
[2023-01-15] MEDS: Meropenem 1 GM in Sodium Chloride 0.9% 100 ML IVPB SCH ×2 (05:45→17:12)
[2023-01-15] MEDS: Senokot S 8.6-50 MG TAB PO SCH ×2 (08:18→21:03)
[2023-01-15] MEDS: Polyethylene Glycol 3350 17 GM Packet PO SCH (08:18)
[2023-01-15] MEDS: Potassium Chloride 20 MEQ TAB PO SCH (08:19)
[2023-01-15] MEDS: Clopidogrel Bisulfate 75 MG TAB PO SCH (08:19)
[2023-01-15] MEDS: Aspirin Chewable 81 MG TAB PO SCH (08:19)
[2023-01-15] MEDS: Ferrous Sulfate 325 MG TAB PO SCH (08:19)
[2023-01-15] MEDS: Zonisamide 100 MG CAP PO SCH ×2 (08:21→21:03)
[2023-01-15] MEDS: Torsemide 20 MG TAB PO SCH (08:21)
[2023-01-16] MEDS: Calcium Carbonate 500 MG ChewTAB PO PRN ×2 (01:31→11:01)
[2023-01-16] MEDS: methylPREDNISolone Sod Succ 40 MG VIAL IVP SCH ×3 (01:31→12:40)
[2023-01-16] MEDS: Ipratropium/Albuterol 3 ML NEB NEB SCH ×6 (02:14→21:54)
[2023-01-16] MEDS: Meropenem 1 GM in Sodium Chloride 0.9% 100 ML IVPB SCH (07:34)
[2023-01-16] MEDS: Polyethylene Glycol 3350 17 GM Packet PO SCH (07:47)
[2023-01-16] MEDS: Aspirin Chewable 81 MG TAB PO SCH (07:48)
[2023-01-16] MEDS: Clopidogrel Bisulfate 75 MG TAB PO SCH (07:48)
[2023-01-16] MEDS: Zonisamide 100 MG CAP PO SCH ×2 (07:48→22:36)
[2023-01-16] MEDS: Senokot S 8.6-50 MG TAB PO SCH ×2 (07:48→22:35)
[2023-01-16] MEDS: Cefdinir 300 MG CAP PO SCH (22:34)
[2023-01-17] MEDS: Ipratropium/Albuterol 3 ML NEB NEB SCH ×6 (01:28→23:31)
[2023-01-17] MEDS: predniSONE 20 MG TAB PO SCH (08:39)
[2023-01-17] MEDS: Aspirin Chewable 81 MG TAB PO SCH (08:39)
[2023-01-17] MEDS: Cefdinir 300 MG CAP PO SCH ×2 (08:39→20:19)
[2023-01-17] MEDS: Zonisamide 100 MG CAP PO SCH ×2 (08:39→20:20)
[2023-01-17] MEDS: Clopidogrel Bisulfate 75 MG TAB PO SCH (08:39)
[2023-01-17] MEDS: Polyethylene Glycol 3350 17 GM Packet PO SCH (08:43)
[2023-01-17] MEDS: Senokot S 8.6-50 MG TAB PO SCH ×2 (08:43→20:19)
[2023-01-18] MEDS: Ipratropium/Albuterol 3 ML NEB NEB SCH ×6 (01:57→22:42)
[2023-01-18 04:02] LABS: #Monocytes 0.7 thou/uL (0.11-0.59); #Neutrophils 5.8 thou/uL (1.40-6.50); %Eosinophils 0.5 % (0.0-10.0); %Lymphocytes 20.3 % (21.0-51.0); %Monocytes 8.5 % (0.0-10.0); %Neutrophils 70.1 % (42.0-75.0); Hematocrit 28.3 % (36.0-47.0); Hemoglobin 8.8 g/dL (12.0-16.0); Mean Corpuscular HGB CONC 31.1 g/dL (32.0-36.0); Mean Corpuscular Hemoglobin 30.9 pg (27.0-31.0); Mean Corpuscular Volume 99.3 fl (78.0-98.0); Mean Platelet Volume 12.1 fL (7.4-10.4); Platelet Count 175 10x3/uL (130-400); RBC Distribution Width 12.8 % (11.5-14.5); Red Blood Cell (RBC) Count 2.85 mill/uL (4.20-5.40); White Blood Cell (WBC) Count 8.2 10x3/uL (4.8-10.8)
[2023-01-18 05:07] LABS: Anion Gap 9 mmol/L (10-20); BUN (Urea Nitrogen) 24 mg/dL (9.8-20.1); Calc. Creatinine Clearance 58 mL/min (70-130); Carbon Dioxide 37 mmol/L (23-31); Chloride 94 mmol/L (98-107); Estimated GFR 83; Glucose 104 mg/dL (83-110); Potassium 3.7 mmol/L (3.5-5.1); Sodium 136 mmol/L (136-145)
[2023-01-18] MEDS: Torsemide 20 MG TAB PO SCH (08:23)
[2023-01-18] MEDS: Clopidogrel Bisulfate 75 MG TAB PO SCH (08:23)
[2023-01-18] MEDS: Zonisamide 100 MG CAP PO SCH ×2 (08:23→20:31)
[2023-01-18] MEDS: Aspirin Chewable 81 MG TAB PO SCH (08:24)
[2023-01-18] MEDS: Cefdinir 300 MG CAP PO SCH ×2 (08:24→20:30)
[2023-01-18] MEDS: Senokot S 8.6-50 MG TAB PO SCH ×3 (08:24→20:30)
[2023-01-18] MEDS: predniSONE 20 MG TAB PO SCH (08:25)
[2023-01-18] MEDS: Ferrous Sulfate 325 MG TAB PO SCH (08:25)
[2023-01-18] MEDS: Polyethylene Glycol 3350 17 GM Packet PO SCH (08:26)
[2023-01-18] MEDS: Potassium Chloride 20 MEQ TAB PO SCH (08:26)
[2023-01-19] MEDS: Ipratropium/Albuterol 3 ML NEB NEB SCH ×5 (02:45→18:26)
[2023-01-19] MEDS: predniSONE 20 MG TAB PO SCH (08:27)
[2023-01-19] MEDS: Aspirin Chewable 81 MG TAB PO SCH (08:30)
[2023-01-19] MEDS: Cefdinir 300 MG CAP PO SCH (08:30)
[2023-01-19] MEDS: Clopidogrel Bisulfate 75 MG TAB PO SCH (08:31)
[2023-01-19] MEDS: Zonisamide 100 MG CAP PO SCH (08:31)
[2023-01-19] MEDS: Senokot S 8.6-50 MG TAB PO SCH (08:31)
[2023-01-19] MEDS: Polyethylene Glycol 3350 17 GM Packet PO SCH (08:31)
[2023-01-19 11:25] VITALS: BP 145/86
[2023-01-19 15:39] VITALS: TEMP 96.7
== END 2023-01-19 18:50 | disposition swing bed (61) | DRG 177 ==
LOC: ERS 17:14 → T4-B 22:53 → OBSVTOIN 01-10 15:11 → IMCU/EMU 01-13 12:21
PROVIDERS: ADMIT Student in an Organized Health Care Education/Training Program; ATTEND Internal Medicine
PROC: 4A043R1 Measurement of Venous Saturation, Peripheral, Percutaneous Approach (ICD-10-PCS; 2023-01-07)
PROC: 5A09457 Assistance with Respiratory Ventilation, 24-96 Consecutive Hours, Continuous Positive Airway Pressure (ICD-10-PCS; principal; 2023-01-13)
PROC: 4A033R1 Measurement of Arterial Saturation, Peripheral, Percutaneous Approach (ICD-10-PCS; 2023-01-13)
DX: J15.6 Pneumonia due to other Gram-negative bacteria (principal); G93.41 Metabolic encephalopathy; J96.21 Acute and chronic respiratory failure with hypoxia; J96.22 Acute and chronic respiratory failure with hypercapnia; S22.089A Unspecified fracture of T11-T12 vertebra, initial encounter for closed fracture; E87.3 Alkalosis; J44.1 Chronic obstructive pulmonary disease with (acute) exacerbation; E87.20 Acidosis, unspecified; J44.0 Chronic obstructive pulmonary disease with (acute) lower respiratory infection; I25.10 Atherosclerotic heart disease of native coronary artery without angina pectoris; I10 Essential (primary) hypertension; I48.91 Unspecified atrial fibrillation; G40.909 Epilepsy, unspecified, not intractable, without status epilepticus; K21.9 Gastro-esophageal reflux disease without esophagitis; D53.9 Nutritional anemia, unspecified; R25.1 Tremor, unspecified; R91.1 Solitary pulmonary nodule; R29.6 Repeated falls; R44.1 Visual hallucinations; Z88.8 Allergy status to other drugs, medicaments and biological substances; Z88.5 Allergy status to narcotic agent; Z79.82 Long term (current) use of aspirin; Z79.899 Other long term (current) drug therapy; Z79.51 Long term (current) use of inhaled steroids; Z90.49 Acquired absence of other specified parts of digestive tract; Z95.5 Presence of coronary angioplasty implant and graft; Z98.890 Other specified postprocedural states; Z90.710 Acquired absence of both cervix and uterus; Z87.891 Personal history of nicotine dependence; Z88.1 Allergy status to other antibiotic agents; Z79.02 Long term (current) use of antithrombotics/antiplatelets; Z79.52 Long term (current) use of systemic steroids
CPT/HCPCS: 36415; 36416; 36600; 70450; 71045; 72100; 80048; 80053; 81001; 82607; 82805; 83605; 84145; 84484; 85014; 85018; 85025; 85049; 85379; 87040; 93005; 93010; 94640; 94660; G0378; J2185; J2920; J3475; J3490; J7512; J7611; J7620